=== PATIENT | female | born 1945 | race Caucasian/White ===

== ENCOUNTER → 2016-11-16 | Outpatient (CLI) | payer OTHER ==
[2016-11-16 12:39] LABS: ALT/SGPT 20 U/L (12-78); AST/SGOT 11 U/L (15-37); BLOOD UREA NITROGEN 22 mg/dl (7-18); BUN/CREATININE RATIO 22.3 (10-20); CALCIUM 8.5 mg/dl (8.5-10.1); CARBON DIOXIDE 28 mmol/L (21-32); CHLORIDE 106 mmol/L (98-107); GLUCOSE,FASTING 96 mg/dl (70-99); POTASSIUM 4.1 mmol/L (3.5-5.1); SODIUM 139 mmol/L (136-145)
[2016-11-16 12:42] LABS: ALB/GLOB RATIO 0.9 (0.9-2); ALKALINE PHOSPHATASE 59 U/L (45-117); CHOLESTEROL 161 mg/dl (0-200); CHOLESTEROL/HDL RATIO 2.5; HDL CHOLESTEROL 64 mg/dl; LDL CHOLESTEROL CALCULATED 70 mg/dl; TRIGLYCERIDES 134 mg/dl (0-150); VERY LOW DENSITY LIPOPROT CALC 27 mg/dl
== END | disposition home or self-care (01) ==
LOC: C.LABPBG 10:31
PROVIDERS: ATTEND Physician Assistant
DX: Z00.00 Encounter for general adult medical examination without abnormal findings (principal)

== ENCOUNTER → 2017-01-12 | Outpatient (CLI) | payer OTHER ==
[~2017-01-12] VITALS: Ht 177.8 cm; Wt 99.5 kg
[2017-01-12 12:55] VITALS: BP 135/88; PULSE 80; Ht 177.8 cm; Wt 99.5 kg
== END | disposition home or self-care (01) ==
LOC: C.NEUR 12:20
PROVIDERS: ATTEND Internal Medicine Pulmonary Disease
DX: F51.01 Primary insomnia (principal); G35 Multiple sclerosis; G47.9 Sleep disorder, unspecified

== ENCOUNTER → 2017-06-11 | Outpatient (CLI) | payer OTHER | END | disposition home or self-care (01) | LOC: C.LABSPEC 14:47 | PROVIDERS: ATTEND Family Medicine | DX: N31.9 Neuromuscular dysfunction of bladder, unspecified (principal) ==

== ENCOUNTER 2019-11-06 13:45 | Inpatient (IN) ==
[2019-11-06 15:50] LABS: Basophils # (auto) 0.01 K/uL (0-0.2); Basophils % (auto) 0.1 %; Eosinophils # (auto) 0.13 K/uL (0-0.5); Eosinophils % (auto) 1.3 %; Hematocrit (blood only) 40.7 % (42-52); Hemoglobin 13.7 g/dL (14.0-18.0); Immature Granulocytes # (auto) 0.02 K/uL (0.00-0.02); Immature Granulocytes % (auto) 0.2 %; Lymphocytes # (auto) 1.95 K/uL (1.2-3.4); Lymphocytes % (auto) 18.8 %; Mean Corpuscular Hemoglobin 32.5 pg (25-34); Mean Corpuscular Hgb Conc 33.7 g/dL (32-36); Mean Corpuscular Volume 96.4 fL (80-100); Monocytes # (auto) 0.92 K/uL (0.11-0.59); Monocytes % (auto) 8.9 %; Neutrophils # (auto) 7.33 K/uL (1.4-6.5); Neutrophils % (auto) 70.7 %; Platelet Count 277 K/uL (130-400); RDW Coefficient of Variation 12.9 % (11.5-14.5); RDW Standard Deviation 45.4 fL (36.4-46.3); Red Blood Count 4.22 M/uL (4.7-6.1); White Blood Count 10.36 K/uL (4.8-10.8)
--- NOTE | 2019-11-06 16:04 | CT Scan Report ---
CT OF THE HEAD WITHOUT CONTRAST CLINICAL HISTORY: Fall. Headache. COMPARISON STUDY: No previous studies for comparison. CT DOSE: 2483.74 mGy.cm TECHNIQUE: Helical axial images of the head were obtained without IV contrast. Automated exposure con trol was utilized for the study. A dose lowering technique was utilized adhering to the principles o f ALARA. FINDINGS: No acute intracranial hemorrhage, midline shift or mass effect is present. Mild atrophy is noted. White matter hypodensities suggest small vessel disease. The ventricular system is unremarkabl e. The basilar cisterns are patent. No extra-axial collections are present. There are no findings to suggest acute dural sinus thrombosis or acute territorial infarct. No significant calvarial abnormali ties are present. Visualized portions of the sinuses and mastoid air cells are clear. IMPRESSION: 1. No acute intracranial findings. 2. No calvarial fracture. ACT 112: Negative or not required by law. Electronically signed by: Benny Hawley M.D. 11/06/2019 4:02 PM
--- NOTE | 2019-11-06 16:06 | CT Scan Report ---
CT SCAN OF THE CERVICAL SPINE CLINICAL HISTORY: Falls. COMPARISON STUDY: No priors. TECHNIQUE: CT scan of the cervical spine is performed from the skull base to the upper thoracic spine . Images are reviewed in the axial, sagittal, and coronal planes. IV contrast was not administered fo r this examination. A dose lowering technique was utilized adhering to the principles of ALARA. FINDINGS: Skeletal structures: The skeletal structures are osteopenic. There is no evidence of fracture or subl uxation involving the cervical spine. Vertebral body height there is maintained. There is minimal ant erolisthesis at C4-C5. Alignment is otherwise preserved. Anterior osteophytes are seen throughout. Th e odontoid process and lateral masses are intact. The atlantoaxial articulation is preserved noting p roductive degenerative change. The spinous processes appear intact. There is moderate multilevel cerv ical spondylosis. Uncovertebral and facet arthropathy contribute to foraminal stenosis at several lev els. Intervertebral discs: Advanced disc space narrowing is seen at C6-C7. Mild to moderate disc space viri rowing is seen at the remaining cervical levels. Central canal: Posterior disc osteophyte complexes are seen at all cervical levels. This likely contr ibutes to multilevel acquired compromise of the central canal. Soft tissues: The prevertebral and paraspinous soft tissues are within normal limits. Calvarium: The visualized calvarium at the skull base appears intact. Brain parenchyma: Partially visualized brain parenchyma the skull base is within normal limits. Sinuses and mastoids: Trace mucosal thickening is noted in the right maxillary antrum. The mastoid ai r cells are well pneumatized. Lung apices: Clear as visualized. IMPRESSION: 1. There is no evidence of fracture or subluxation involving the cervical spine. 2. Osteopenia and spondylotic change as above. ACT 112: Negative or not required by law. Electronically signed by: Ortiz Whyte M.D. 11/06/2019 4:05 PM
[2019-11-06 16:10] LABS: Partial Thromboplastin Ratio 0.8; Partial Thromboplastin Time 23.3 Seconds (21.0-31.0); Prothrombin Time 10.2 Seconds (9.0-12.0)
--- NOTE | 2019-11-06 16:15 | CT Scan Report ---
ABDOMEN AND PELVIS CT WITHOUT CONTRAST CT DOSE: HISTORY: Right flank pain. fall TECHNIQUE: Multiaxial CT images of the abdomen and pelvis were performed without contrast. A dose lo wering technique was utilized adhering to the principles of ALARA. COMPARISON STUDY: Abdomen and pelvis CT 11/18/2018. FINDINGS: Stable 2 mm nodule within the right lower lobe on image 14. A few bibasilar linear densitie s and groundglass densities at the lung bases favor dependent change/atelectasis. No pneumoperitoneum . No pneumatosis. L4-5 posterior decompression and fusion with pedicle screws and rods. No acute frac tures within the visualized osseous structures. Multiple old, healed bilateral rib fractures. There i s a large hiatus hernia containing the majority of the stomach. This remains unchanged. Small fat-con taining umbilical hernia. There is also a small fat-containing right inguinal hernia. Mild bilateral perinephric edema. This has slightly progressed. No renal or ureteral stones. Mild left hydroureteron ephrosis. Prostate gland is mildly enlarged. The bladder is markedly distended and demonstrates a mil dly thickened wall for the degree of distention. Moderate to large amount well-formed stool seen with in the colon and rectum. This includes a 6.7 cm rectal stool ball. Suboptimal evaluation for bowel pa thology due to the lack of intravenous and oral contrast. However, there is no definite bowel wall th ickening or obstruction. The unenhanced liver, spleen, pancreas, and right adrenal gland are unremark able. Stable 2.7 cm low density left adrenal gland nodule. No retroperitoneal lymphadenopathy or kathy joaquin. Normal caliber abdominal aorta. IMPRESSION: 1. No acute traumatic process within the abdomen or pelvis. 2. Large hiatus hernia, unchanged. 3. The bladder is markedly distended and demonstrates a mildly thickened wall for the degree of diste ntion. This raises the possibility of a cystitis. Recommend correlation with urinalysis. 4. Mild bilateral perinephric edema has slightly progressed. This could be chronic or represent a ping lonephritis. 5. Mild left hydroureteronephrosis which is likely secondary to the distended bladder. 6. Additional findings as described above. ACT 112: Negative or not required by law. Electronically signed by: Chilo Comer M.D. 11/06/2019 4:13 PM
[2019-11-06 16:18] LABS: Alanine Aminotransferase 48 U/L (12-78); Albumin Level 3.9 gm/dl (3.4-5.0); Alkaline Phosphatase 74 U/L (45-117); Aspartate Aminotransferase 31 U/L (15-37); BUN Creatinine Ratio 15.9 (10-20); Bilirubin,Total 1.3 mg/dl (0.2-1); Blood Urea Nitrogen 49 mg/dl (7-18); Carbon Dioxide 31 mmol/L (21-32); Chloride 101 mmol/L (98-107); Est GFR (African American) 22.3; Est GFR (Non-African American) 19.2; Glucose 111 mg/dl (70-99); Magnesium 2.9 mg/dl (1.8-2.4); Potassium 3.2 mmol/L (3.5-5.1); Sodium 139 mmol/L (136-145); Total Protein 7.9 gm/dl (6.4-8.2); Troponin I < 0.015 ng/ml (0-0.045)
[2019-11-06 16:20] LABS: Calcium 12.9 mg/dl (8.5-10.1)
[2019-11-06] MEDS ORDERED: cefTRIAXone SODIUM 1,000 MG/50 ML BAG IV STA (16:34)
[2019-11-06 16:45] LABS: Appearance Urine Turbid (Clear); Bacteria Urine Automated 1+ (Negative); Bilirubin Urine Negative (Negative); Blood Urine 1+ (Negative); Color Urine Yellow; Epithelial Cell Urine Auto 20-30 /lpf (0-5); Glucose Urine UA Negative (Negative); Ketones Urine Negative (Negative); Leukocyte Esterase Urine 3+ (Negative); Nitrite Urine Negative (Negative); Protein Urine 1+ (Negative); RBC Urine Automated 0-4 /hpf (0-4); Specific Gravity Urine 1.012 (1.000-1.030); Urobilinogen Urine Negative (Negative); WBC Urine Automated >30 /hpf (0-5)
[2019-11-06] MEDS ORDERED: SODIUM CHLORIDE 0.9% 1000ML 1,000 ML IV SCH (16:45)
--- NOTE | 2019-11-06 17:18 | XRay Report ---
XR chest 1V portable CLINICAL HISTORY: SEPSIS COMPARISON STUDY: No previous studies for comparison. FINDINGS: A large hiatal hernia is noted. There is no pneumothorax or pleural effusion. There is no c onsolidation to suggest pneumonia. Mild cardiomegaly is noted. No evidence for pulmonary edema. IMPRESSION: 1. No acute cardiopulmonary findings. 2. Large hiatal hernia. ACT 112: Negative or not required by law. Electronically signed by: Benny Hawley M.D. 11/06/2019 5:17 PM
--- NOTE | 2019-11-06 17:19 | XRay Report ---
XR humerus LT 2V CLINICAL HISTORY: fall COMPARISON: None FINDINGS: No acute fracture of the left humerus is noted. Alignment of the left elbow and left shoul sandra is anatomic. IMPRESSION: No acute fracture of the left humerus. ACT 112: Negative or not required by law. Electronically signed by: Benny Hawley M.D. 11/06/2019 5:18 PM
--- NOTE | 2019-11-06 17:19 | XRay Report ---
XR shoulder LT min 2V routine CLINICAL HISTORY: fall COMPARISON: None FINDINGS: Alignment of the left shoulder is anatomic. There is no acute fracture. There is moderate osteoarthritis of the left acromioclavicular and glenohumeral joints. IMPRESSION: 1. No acute fracture or dislocation within the left shoulder. 2. Moderate osteoarthritis of the left acromioclavicular and glenohumeral joints. ACT 112: Negative or not required by law. Electronically signed by: Benny Hawley M.D. 11/06/2019 5:17 PM
--- NOTE | 2019-11-06 17:21 | XRay Report ---
XR pelvis 1-2V routine CLINICAL HISTORY: fall COMPARISON: CT of the abdomen and pelvis November 18, 2018. FINDINGS: Postoperative findings within the lower lumbar spine are incidentally noted. The sacroilia c joints and symphysis pubis are intact. No acute fracture within the pelvis or hips is identified. T here is moderate osteoarthritis of the bilateral hips. IMPRESSION: No acute fracture within the pelvis or hips. ACT 112: Negative or not required by law. Electronically signed by: Benny Hawley M.D. 11/06/2019 5:20 PM
--- NOTE | 2019-11-06 18:30 | History & Physical Report ---
Date of Service November 06, 2019 Assessment & Plan (1) Pyelonephritis: Patient is a 73-year-old male with PMH of MS, neurogenic bladder, HTN, glaucoma, depression who was sent to the ED by his PCP due to falls since Sunday. Has had several episodes of confusion for the past 3-4 days that have resolved quickly each time. Pt has neurogenic bladder and urinary retention--self-catheterizes at home. In the ED, UA was positive, labs showed elevated creatinine. Pyelonephritis: - Patient self-caths at home--at-risk for UTIs, no prior history of these - Confusion episodes likely related to infection - Afebrile, no leukocytosis--follow AM CBC - Positive UA -ABD/Pelvic CT: - The bladder is markedly distended and demonstrates a mildly thickened wall for the degree of distention. This raises the possibility of a cystitis. Recommend correlation with urinalysis. - Mild bilateral perinephric edema has slightly progressed. This could be chronic or represent a pyelonephritis. - Mild left hydroureteronephrosis which is likely secondary to the distended bladder. - Ceftriaxone 2g IV daily--adjusted by weight per discussion with pharmacy - Monitor clinically ANGIE - Likely post renal due to urinary retention - Patient catheterized - Patient's creatinine at 3.08 in ED - Strict I/Os - Trend BMP in AM Falls - Seem to be mechanical in nature, likely related to BLE weakness related to his MS - expressed concern about her ability to properly care for him at home should he fall again - Case management consulted - PT/OT consulted - Follow CM, PT/OT recs Neurogenic bladder - Continue home oxybutinin 5mg PO BID Muscle stiffness - Continue home cyclobenzaprine 10mg PO BID Glaucoma - Continue home latanoprost 1 drop in each eye HS Depression - Continue home citalopram 40mg PO daily Insomnia - Continue home zolpidem 10mg PO qPM FENGI: Heart healthy, LR @ 125ml/hr DVT prophylaxis: Heparin 5000 units SQ q8H Dispo: Med tele Code: Full Code (2) ANGIE (acute kidney injury): (3) Glaucoma: (4) Multiple sclerosis: (5) Depression: (6) Neurogenic bladder: (7) Muscle stiffness: (8) Fall: (9) Insomnia: History of Present Illness Primary Care Provider: Nguyen M. Ricotta, DO Patient is a 73-year-old male with PMH of MS, neurogenic bladder, HTN, glaucoma, depression who was sent to the ED by his PCP due to falls since Sunday. His is in the room with him and reports that he has fallen twice--the first while seated on the toilet and he slipped off. The second fall occurred yesterday-- was not present but patient says he had fallen off his wheelchair when doing his usual self-catheterization for his urinary retention. He denies having lost consciousness or feeling dizzy before the fall. He was unable to get back up due to a preexisting tear in his biceps that was noted by his PCP back in June 2019. Patient's also reports that he has had several episodes of confusion for the past 3-4 days that have resolved quickly each time. The patient denies any associated focal deficits apart from baseline changes or vision changes. In the ED, patient's UA was psoitive for LE, bacteria, WBC, and 1+ blood. Labs showed elevated creatinine, mild hypokalemia, moderate hypercalcemia, mild hypermagnesemia. No leukocytosis. ABD/pelvic CT noted marked bladder distention and demonstrates a mildly thickened wall for the degree of distention, raising the possibility of cystitis. Mild bilateral perinephric edema has slightly progressed. This could be chronic or represent a pyelonephritis. Head CT, cervical spine CT, CXR, Lt shoulder XR, Lt humerus XR, pelvis XR all noncontributory, except for mention fo large hiatal hernia. Patient denies fever, chills, CP, palpitations, SOB, cough, nausea, vomiting, diarrhea. Allergies Allergy/AdvReac Type Severity Reaction Status Date / Time No Known Allergies Allergy Verified 11/06/19 18:55 Home Medications Home Medications Medication Instructions Recorded Confirmed Type cholecalciferol (vitamin D3) 125 5,000 units PO DAILY tab 09/18/18 11/06/19 History mcg (5,000 unit) tablet ascorbic acid (vitamin C) 500 mg 1,000 mg PO DAILY tab 11/21/18 11/06/19 History tablet coenzyme Q10 100 mg capsule 100 mg PO DAILY cap 11/21/18 11/06/19 History magnesium oxide 400 mg (241.3 mg 400 mg PO BID tab 11/21/18 11/06/19 History magnesium) tablet omega-3 acid ethyl esters 1 gram 4 cap PO DAILY cap 11/21/18 11/06/19 History capsule oxybutynin chloride 5 mg tablet 5 mg PO BID #180 tab 12/06/18 11/06/19 Rx citalopram 40 mg tablet 40 mg PO DAILY #90 tab 02/11/19 11/06/19 Rx polyethylene glycol 3350 17 17 g PO DAILY PRN gm 03/10/19 11/06/19 History gram/dose oral powder cyclobenzaprine 10 mg tablet 10 mg PO BID 30 Days #60 tab 10/30/19 11/06/19 Rx latanoprost 1 drp OPB HS 11/06/19 11/06/19 History multivitamin with iron-mineral 1 tab PO DAILY 11/06/19 11/06/19 History zolpidem 10 mg PO QPM 11/06/19 11/06/19 History Past Med/Surg History Medical History Adrenal adenoma Aneurysm of vertebral artery Bilateral swelling of feet Depression Glaucoma Hearing difficulty History of urinary self-catheterization Hypertension Idiopathic insomnia Impotence, organic Lyme disease Multiple sclerosis (~1991) Neurogenic bladder Neuropathic pain bilateral feet Peripheral neuropathy Vision problem Surgical History History of back surgery History of repair of rotator cuff Status post insertion of intrathecal baclofen pump 2008 and removal 2009 was about a year later. pump was making him too weak. then had csf leaking and that had to be repaired Family History Mother Myocardial infarction Cardiac disorder Sister Multiple sclerosis COPD (chronic obstructive pulmonary disease) Father Leukemia Denies family history of Ovarian cancer Prostate cancer Breast cancer Colorectal cancer Social History Smoking Status: Former smoker Tobacco Type: Cigarettes Hx Alcohol Use: Yes Alcohol type: hard liquor Hx Substance Use: No Preferred Language: German Communication Ability: Effective Visual Impairment: Limited Hearing Ability: Normal Beliefs That Will Affect Care: None marital status: Current Living Situation: Spouse current occupational status: retired Other Information That Helps Us Care for You: No Feels Safe at Home: Yes Safety Concerns: Feels Safe At This Time Childhood Exposure to Second-Hand Smoke: No caffeine: Yes (Coffee x 1 cup per day.) during the past year weight has: remained stable Dental Care, Regularly: Yes Physical Activity Frequency: Does not Exercise Seatbelt Use: always Sunscreen Use: No Assistive Devices: Glasses, Hearing Aid - Left, Hearing Aid - Right and Wheelchair Review of Systems Review of Systems: All systems reviewed & are unremarkable except as noted in HPI & below Musculoskeletal: + joint pain (left shoulder and arm pain) Neurologic: + localized weakness (weakness of both legs, at baseline due to MS) and + headache(s) (reports that usually gets these with glaucoma drops, has discussed with prescribing provider) Physical Exam Constitutional: WD/WN, vitals as above no acute distress Eyes: PERRL, conjunctivae normal, anicteric sclerae EOM intact bilaterally ENMT: external ear and nose normal, oropharynx normal Ears: + hearing impairment (hearing aids in, hearing normal with them) Neck: trachea midline, no thyromegaly Respiratory: normal respiratory effort, lungs clear to auscultation Auscultation: no crackles, no rales, no rhonchi and no wheezes Cardiovascular: RRR, no murmur, no edema Heart Sounds: normal S1 and normal S2; no gallop, no murmur and no cardiac rub Chest (Breasts): Chest: normal inspection of chest Gastrointestinal (Abdomen): normal bowel sounds, soft, nontender, no hepatosplenomegaly Musculoskeletal: Head/Neck/Chest: normocephalic; full ROM of neck Extremities: extremities normal to inspection and + abnormal strength (see neuro exam); no cyanosis and no clubbing Skin: no rashes, warm and dry Neurologic: CN II, III, IV, and VII normal. CN VIII: hearing normal with hearing aids. Flexion of UE 3/5, extension 5/5. [employer] Sports [employer] strength 5/5 B/L. Lower extremities: very limited movement, able to wiggle toes. Psychiatric: A+Ox3, euthymic affect Speech: normal rate/rhythm/volume of speech Lymphatic: no cervical or axillary lymphadenopathy Results & Data Results & Data ([facility]) Vital Signs (Past 12 Hours) Vital Signs Temp Pulse Pulse Resp BP BP Pulse Ox 11/06/19 17:58 90 18 179/119 H 96 11/06/19 17:09 91 H 18 190/114 H 95 10/01/20 14:08 36.9 C 84 20 182/112 H 97 Supervising Physician Co-Signing Physician Notes I personally saw and examined the patient. I verified all jalloh points and agree with resident physician Dr Quick with the following exceptions and/or additions: 73-year-old male with neurogenic bladder due to multiple sclerosis sent by PCP due to multiple falls. Finding it more difficult to perform intermittent catheterization and slipping off toilet when trying to perform this. No suprapubic tenderness or CVA tenderness. No known history of Pseudomonas UTI. O/E very dry mucous membranes, no CVA tenderness, alert, nonseptic appearing, abdomen soft nontender. Chest CTAB anteriorly. A/P Suspect all the symptoms are secondary to pyelonephritis/cystitis in setting of urinary retention. ANGIE secondary to obstructive uropathy and prerenal from dehydration. Hypercalcemia suspect secondary to dehydration in addition and should improve with rehydration. LR bolus now, then switch lactated Ringer's for D5 half normal saline + KCl @ 200 ml/hr. Urine output measure every 2 hourly to need for additional IV fluids. Aim +ve 2L in the next 24 hours. Resident Activity Tracking Resident Involvement: Resident Care Provided Care Provided: Adult Hospital Medicine
[2019-11-06] MEDS ORDERED: POLYETHYLENE (MIRALAX) 17 GM PACK PO PRN (20:52)
[2019-11-06] MEDS ORDERED: cefTRIAXone SODIUM 1,000 MG in DEXTROSE 5% 50 ML IV SCH (20:52)
[2019-11-06] MEDS ORDERED: LACTATED RINGER'S 1,000 ML IV SCH (20:52)
[2019-11-06] MEDS ORDERED: ONDANSETRON INJ 2 MG/ML 2 ML VIAL IV PRN (20:52)
[2019-11-06] MEDS ORDERED: ACETAMINOPHEN 325 MG TAB PO PRN (20:52)
--- NOTE | 2019-11-06 21:49 | Emergency Department Note ---
History of Present Illness General Chief complaint: Fall Stated complaint: 3 FALL'S, CONFUSED, LEFT SHOULDER PAIN Time Seen by Provider: 11/06/19 15:02 Source: family () Mode of arrival: wheelchair History of Present Illness Provider complaint: Recurrent falls lethargy Onset (ago): day(s) 8 Location: upper extremity and left Radiation: non-radiation Severity: mild Maximum Pain Intensity: 8 73-year-old male who is wheelchair-bound with history of MS presents emergency department with his . brought the patient in because he has had recurrent falls over the last 3 days. She reports that 8 days ago he received Botox injections for muscle spasms due to his MS in his bilateral lower extremities. She said states since then he has been increasingly weak and has fallen 3 times over the last 3 days. reports that the patient has been complaining of left arm pain. She also reports that the patient has had no fevers. She reports that the patient does self cath and has had a cloudy appearance to his urine. Home Medications Home Medications Medication Instructions Recorded Confirmed Type cholecalciferol (vitamin D3) 125 5,000 units PO DAILY tab 09/18/18 11/06/19 History mcg (5,000 unit) tablet ascorbic acid (vitamin C) 500 mg 1,000 mg PO DAILY tab 11/21/18 11/06/19 History tablet coenzyme Q10 100 mg capsule 100 mg PO DAILY cap 11/21/18 11/06/19 History magnesium oxide 400 mg (241.3 mg 400 mg PO BID tab 11/21/18 11/06/19 History magnesium) tablet omega-3 acid ethyl esters 1 gram 4 cap PO DAILY cap 11/21/18 11/06/19 History capsule oxybutynin chloride 5 mg tablet 5 mg PO BID #180 tab 12/06/18 11/06/19 Rx citalopram 40 mg tablet 40 mg PO DAILY #90 tab 02/11/19 11/06/19 Rx polyethylene glycol 3350 17 17 g PO DAILY PRN gm 03/10/19 11/06/19 History gram/dose oral powder cyclobenzaprine 10 mg tablet 10 mg PO BID 30 Days #60 tab 10/30/19 11/06/19 Rx latanoprost 1 drp OPB HS 11/06/19 11/06/19 History multivitamin with iron-mineral 1 tab PO DAILY 11/06/19 11/06/19 History zolpidem 10 mg PO QPM 11/06/19 11/06/19 History Allergies Allergy/AdvReac Type Severity Reaction Status Date / Time No Known Allergies Allergy Verified 11/06/19 18:55 Past Med/Surg History Medical History Adrenal adenoma Aneurysm of vertebral artery Bilateral swelling of feet Depression Glaucoma Hearing difficulty History of urinary self-catheterization Hypertension Idiopathic insomnia Impotence, organic Lyme disease Multiple sclerosis (~1991) Neurogenic bladder Neuropathic pain bilateral feet Peripheral neuropathy Vision problem Surgical History History of back surgery History of repair of rotator cuff Status post insertion of intrathecal baclofen pump 2008 and removal 2009 was about a year later. pump was making him too weak. then had csf leaking and that had to be repaired Family History Mother Myocardial infarction Cardiac disorder Sister Multiple sclerosis COPD (chronic obstructive pulmonary disease) Father Leukemia Denies family history of Ovarian cancer Prostate cancer Breast cancer Colorectal cancer Social History Smoking Status: Former smoker Tobacco Type: Cigarettes Hx Alcohol Use: Yes Alcohol type: hard liquor Hx Substance Use: No Preferred Language: Spanish Communication Ability: Effective Visual Impairment: Limited Hearing Ability: Normal Beliefs That Will Affect Care: None marital status: Current Living Situation: Spouse current occupational status: retired Other Information That Helps Us Care for You: No Feels Safe at Home: Yes Safety Concerns: Feels Safe At This Time Childhood Exposure to Second-Hand Smoke: No caffeine: Yes (Coffee x 1 cup per day.) during the past year weight has: remained stable Dental Care, Regularly: Yes Physical Activity Frequency: Does not Exercise Seatbelt Use: always Sunscreen Use: No Assistive Devices: Glasses, Hearing Aid - Bilateral and Wheelchair Review of Systems A total of 10 systems reviewed and were otherwise negative Physical Exam Vital Signs Vital Signs - 24 hr 11/06/19 14:08 11/06/19 16:00 11/06/19 17:09 Temperature 36.9 C Temperature Source Oral Pulse Rate 84 Pulse Rate [Apical] 91 H Pulse Rhythm Regular Pulse Strength Normal Respiratory Rate 20 18 Respiratory Effort / Characteristics Non-Labored Spontaneous Non-Labored Respiratory Depth Normal Respiratory Pattern Regular Blood Pressure 182/112 H Blood Pressure [Left Arm] 190/114 H Blood Pressure Mean 135 Blood Pressure Mean [Left Arm] 139 Blood Pressure Position Sitting Pulse Oximetry 97 95 Oxygen Delivery Method Room Air Room Air Room Air Sepsis Recent Fever Within 48 Hours No Sepsis New/Unexplained Change in Mental Status N/A Sepsis Action Taken by Nursing No Action Required 11/06/19 17:58 11/06/19 18:41 Temperature Temperature Source Pulse Rate Pulse Rate [Apical] 90 93 H Pulse Rhythm Pulse Strength Respiratory Rate 18 18 Respiratory Effort / Characteristics Non-Labored Non-Labored Respiratory Depth Normal Normal Respiratory Pattern Blood Pressure Blood Pressure [Left Arm] 179/119 H 177/108 H Blood Pressure Mean Blood Pressure Mean [Left Arm] 139 131 Blood Pressure Position Pulse Oximetry 96 95 Oxygen Delivery Method Room Air Room Air Sepsis Recent Fever Within 48 Hours Sepsis New/Unexplained Change in Mental Status Sepsis Action Taken by Nursing Physical Exam GENERAL: He is oriented to person, place, and time. He appears well-developed and well-nourished. He does not appear distressed. HENT: Exam performed. - Head: Normocephalic and atraumatic. - Mouth/Throat: The oropharynx is clear and moist. No trismus in the jaw. No dental abscesses or uvula swelling. No oropharyngeal exudate or tonsillar abscesses. EYES: Conjunctivae and EOM are normal. Pupils are equal, round, and reactive to light. Right eye exhibits no discharge. Left eye exhibits no discharge. No scleral icterus. NECK: Normal range of motion. Neck supple. No JVD present. No spinous process tenderness present. No carotid bruit present. No rigidity. No tracheal deviation and normal range of motion present. No Brudzinski's sign and no Kernig's sign noted. CV: Normal rate, regular rhythm, normal heart sounds and intact distal pulses. There is no peripheral edema. Palpable radial pulses bue. PULM/CHEST: Rhonchi bilaterally - Chest Wall: He exhibits no tenderness. ABD: The abdomen is soft. MUSCULOSKELETAL: Pain on palpation of the left upper extremity. NEURO: He is alert and oriented to person, place, and time. Decrease strength in the bilateral lower extremities baseline per . Course Course 1502: The patient was evaluated in room D4. A complete history and physical exam was performed. Cardiac monitoring: An order was placed for continuous cardiac monitoring. The monitor shows a rate of 90 with sinus rhythm 1630: Vital signs stable. Labs show an increased creatinine of 3.08 up from the patient's baseline of 1.3. Urinalysis does appear infected. CT shows possible pyelonephritis. No other traumatic injuries on imaging. Calcium was 12.9. Patient was started on IV hydration and given Rocephin 1 g IV piggyback for pyelonephritis. Posey catheter will be placed. Patient will be admitted to the [facility] team. Dr. Pike notified. Administered Medications Discontinued Medications Sodium Chloride (Nss 1000ml) 1,000 mls @ 125 mls/hr IV .Q8H SHALINI Stop: 12/06/19 16:44 Last Admin: 11/06/19 17:13 Dose: 125 mls/hr Documented by: [id number] Ceftriaxone Sodium (Rocephin) 1,000 mg in 50 mls @ 100 mls/hr IV NOW STA Stop: 11/06/19 17:03 Last Infusion: 11/06/19 17:40 Dose: 0 mls/hr Documented by: [id number] Admin: 11/06/19 17:10 Dose: 100 mls/hr Documented by: [id number] Medical Decision Making Laboratory Data Result diagrams: 11/06/19 15:25 11/06/19 15:25 Lab Results 11/06/19 11/06/19 11/06/19 Range/Units 15:07 15:25 15:25 WBC 10.36 (4.8-10.8) K/uL RBC 4.22 L (4.7-6.1) M/uL Hgb 13.7 L (14.0-18.0) g/dL Hct 40.7 L (42-52) % MCV 96.4 (80-100) fL MCH 32.5 (25-34) pg MCHC 33.7 (32-36) g/dL RDW Std Deviation 45.4 (36.4-46.3) fL RDW Coeff of Gracy 12.9 (11.5-14.5) % Plt Count 277 (130-400) K/uL MPV 10.0 (7.4-10.4) fL Immature Gran % (Auto) 0.2 % Neut % (Auto) 70.7 % Lymph % (Auto) 18.8 % [place] % (Auto) 8.9 % Eos % (Auto) 1.3 % Baso % (Auto) 0.1 % Neut # (Auto) 7.33 H (1.4-6.5) K/uL Lymph # (Auto) 1.95 (1.2-3.4) K/uL [place] # (Auto) 0.92 H (0.11-0.59) K/uL Eos # (Auto) 0.13 (0-0.5) K/uL Baso # (Auto) 0.01 (0-0.2) K/uL Immature Gran # (Auto) 0.02 (0.00-0.02) K/uL PT (9.0-12.0) Seconds INR (0.9-1.1) APTT (21.0-31.0) Seconds PTT Ratio Sodium (136-145) mmol/L Potassium (3.5-5.1) mmol/L Chloride (98-107) mmol/L Carbon Dioxide (21-32) mmol/L Anion Gap (3-11) BUN (7-18) mg/dl Creatinine (0.6-1.4) mg/dl Est Cr Clr Drug Dosing Est GFR ( Amer) Est GFR (Non-Af Amer) BUN/Creatinine Ratio (10-20) Glucose (70-99) mg/dl POC Glucose 110 H (70-99) mg/dl Lactate (0.4-2.0) mmol/L Calcium (8.5-10.1) mg/dl Magnesium (1.8-2.4) mg/dl Total Bilirubin (0.2-1) mg/dl AST (15-37) U/L ALT (12-78) U/L Alkaline Phosphatase (45-117) U/L Ammonia (11-32) umol/L Troponin I (0-0.045) ng/ml Total Protein (6.4-8.2) gm/dl Albumin (3.4-5.0) gm/dl Globulin (2.5-4.0) gm/dl Albumin/Globulin Ratio (0.9-2) Procalcitonin 0.12 (0-0.5) ng/ml Urine Color Urine Appearance (Clear) Urine pH (4.5-7.5) Ur Specific [place] (1.000-1.030) Urine Protein (Negative) Urine Glucose (UA) (Negative) Urine Ketones (Negative) Urine Blood (Negative) Urine Nitrite (Negative) Urine Bilirubin (Negative) Urine Urobilinogen (Negative) Ur Leukocyte Esterase (Negative) Urine WBC (Auto) (0-5) /hpf Urine RBC (Auto) (0-4) /hpf U Hyaline Cast (Auto) (0-5) /lpf U Epithel Cells (Auto) (0-5) /lpf Urine Bacteria (Auto) (Negative) 11/06/19 11/06/19 11/06/19 Range/Units 15:25 15:25 15:25 WBC (4.8-10.8) K/uL RBC (4.7-6.1) M/uL Hgb (14.0-18.0) g/dL Hct (42-52) % MCV (80-100) fL MCH (25-34) pg MCHC (32-36) g/dL RDW Std Deviation (36.4-46.3) fL RDW Coeff of Gracy (11.5-14.5) % Plt Count (130-400) K/uL MPV (7.4-10.4) fL Immature Gran % (Auto) % Neut % (Auto) % Lymph % (Auto) % [place] % (Auto) % Eos % (Auto) % Baso % (Auto) % Neut # (Auto) (1.4-6.5) K/uL Lymph # (Auto) (1.2-3.4) K/uL [place] # (Auto) (0.11-0.59) K/uL Eos # (Auto) (0-0.5) K/uL Baso # (Auto) (0-0.2) K/uL Immature Gran # (Auto) (0.00-0.02) K/uL PT 10.2 (9.0-12.0) Seconds INR 1.0 (0.9-1.1) APTT 23.3 (21.0-31.0) Seconds PTT Ratio 0.8 Sodium 139 (136-145) mmol/L Potassium 3.2 L (3.5-5.1) mmol/L Chloride 101 (98-107) mmol/L Carbon Dioxide 31 (21-32) mmol/L Anion Gap 7.0 (3-11) BUN 49 H (7-18) mg/dl Creatinine 3.08 H (0.6-1.4) mg/dl Est Cr Clr Drug Dosing Not Reportable Est GFR ( Amer) 22.3 Est GFR (Non-Af Amer) 19.2 BUN/Creatinine Ratio 15.9 (10-20) Glucose 111 H (70-99) mg/dl POC Glucose (70-99) mg/dl Lactate 1.6 (0.4-2.0) mmol/L Calcium 12.9 H* (8.5-10.1) mg/dl Magnesium 2.9 H (1.8-2.4) mg/dl Total Bilirubin 1.3 H (0.2-1) mg/dl AST 31 (15-37) U/L ALT 48 (12-78) U/L Alkaline Phosphatase 74 (45-117) U/L Ammonia (11-32) umol/L Troponin I < 0.015 (0-0.045) ng/ml Total Protein 7.9 (6.4-8.2) gm/dl Albumin 3.9 (3.4-5.0) gm/dl Globulin 4.0 (2.5-4.0) gm/dl Albumin/Globulin Ratio 1.0 (0.9-2) Procalcitonin (0-0.5) ng/ml Urine Color Urine Appearance (Clear) Urine pH (4.5-7.5) Ur Specific [place] (1.000-1.030) Urine Protein (Negative) Urine Glucose (UA) (Negative) Urine Ketones (Negative) Urine Blood (Negative) Urine Nitrite (Negative) Urine Bilirubin (Negative) Urine Urobilinogen (Negative) Ur Leukocyte Esterase (Negative) Urine WBC (Auto) (0-5) /hpf Urine RBC (Auto) (0-4) /hpf U Hyaline Cast (Auto) (0-5) /lpf U Epithel Cells (Auto) (0-5) /lpf Urine Bacteria (Auto) (Negative) 11/06/19 11/06/19 Range/Units 16:16 16:25 WBC (4.8-10.8) K/uL RBC (4.7-6.1) M/uL Hgb (14.0-18.0) g/dL Hct (42-52) % MCV (80-100) fL MCH (25-34) pg MCHC (32-36) g/dL RDW Std Deviation (36.4-46.3) fL RDW Coeff of Gracy (11.5-14.5) % Plt Count (130-400) K/uL MPV (7.4-10.4) fL Immature Gran % (Auto) % Neut % (Auto) % Lymph % (Auto) % [place] % (Auto) % Eos % (Auto) % Baso % (Auto) % Neut # (Auto) (1.4-6.5) K/uL Lymph # (Auto) (1.2-3.4) K/uL [place] # (Auto) (0.11-0.59) K/uL Eos # (Auto) (0-0.5) K/uL Baso # (Auto) (0-0.2) K/uL Immature Gran # (Auto) (0.00-0.02) K/uL PT (9.0-12.0) Seconds INR (0.9-1.1) APTT (21.0-31.0) Seconds PTT Ratio Sodium (136-145) mmol/L Potassium (3.5-5.1) mmol/L Chloride (98-107) mmol/L Carbon Dioxide (21-32) mmol/L Anion Gap (3-11) BUN (7-18) mg/dl Creatinine (0.6-1.4) mg/dl Est Cr Clr Drug Dosing Est GFR ( Amer) Est GFR (Non-Af Amer) BUN/Creatinine Ratio (10-20) Glucose (70-99) mg/dl POC Glucose (70-99) mg/dl Lactate (0.4-2.0) mmol/L Calcium (8.5-10.1) mg/dl Magnesium (1.8-2.4) mg/dl Total Bilirubin (0.2-1) mg/dl AST (15-37) U/L ALT (12-78) U/L Alkaline Phosphatase (45-117) U/L Ammonia 12.8 (11-32) umol/L Troponin I (0-0.045) ng/ml Total Protein (6.4-8.2) gm/dl Albumin (3.4-5.0) gm/dl Globulin (2.5-4.0) gm/dl Albumin/Globulin Ratio (0.9-2) Procalcitonin (0-0.5) ng/ml Urine Color Yellow Urine Appearance Turbid A (Clear) Urine pH 7.0 (4.5-7.5) Ur Specific [place] 1.012 (1.000-1.030) Urine Protein 1+ H (Negative) Urine Glucose (UA) Negative (Negative) Urine Ketones Negative (Negative) Urine Blood 1+ H (Negative) Urine Nitrite Negative (Negative) Urine Bilirubin Negative (Negative) Urine Urobilinogen Negative (Negative) Ur Leukocyte Esterase 3+ H (Negative) Urine WBC (Auto) >30 H (0-5) /hpf Urine RBC (Auto) 0-4 (0-4) /hpf U Hyaline Cast (Auto) 1-5 (0-5) /lpf U Epithel Cells (Auto) 20-30 H (0-5) /lpf Urine Bacteria (Auto) 1+ H (Negative) Imaging Data Radiologist's Impression: XR shoulder LT min 2V routine CLINICAL HISTORY: fall COMPARISON: None FINDINGS: Alignment of the left shoulder is anatomic. There is no acute fracture. There is moderate osteoarthritis of the left acromioclavicular and glenohumeral joints. IMPRESSION: 1. No acute fracture or dislocation within the left shoulder. 2. Moderate osteoarthritis of the left acromioclavicular and glenohumeral joints. ACT 112: Negative or not required by law. Electronically signed by: Benny Hawley M.D. 11/06/2019 5:17 PM Dictated: 11/06/191716 Transcribed: 11/06/191716 XR humerus LT 2V CLINICAL HISTORY: fall COMPARISON: None FINDINGS: No acute fracture of the left humerus is noted. Alignment of the left elbow and left shoulder is anatomic. IMPRESSION: No acute fracture of the left humerus. ACT 112: Negative or not required by law. Electronically signed by: Benny Hawley M.D. 11/06/2019 5:18 PM Dictated: 11/06/191717 Transcribed: 11/06/191717 XR chest 1V portable CLINICAL HISTORY: SEPSIS COMPARISON STUDY: No previous studies for comparison. FINDINGS: A large hiatal hernia is noted. There is no pneumothorax or pleural effusion. There is no consolidation to suggest pneumonia. Mild cardiomegaly is noted. No evidence for pulmonary edema. IMPRESSION: 1. No acute cardiopulmonary findings. 2. Large hiatal hernia. ACT 112: Negative or not required by law. Electronically signed by: Benny Hawley M.D. 11/06/2019 5:17 PM Dictated: 11/06/191714 Transcribed: 11/06/191714 XR pelvis 1-2V routine CLINICAL HISTORY: fall COMPARISON: CT of the abdomen and pelvis November 18, 2018. FINDINGS: Postoperative findings within the lower lumbar spine are incidentally noted. The sacroiliac joints and symphysis pubis are intact. No acute fracture w ithin the pelvis or hips is identified. There is moderate osteoarthritis of the bilateral hips. IMPRESSION: No acute fracture within the pelvis or hips. ACT 112: Negative or not required by law. Electronically signed by: Benny Hawley M.D. 11/06/2019 5:20 PM Dictated: 11/06/191717 Transcribed: 11/06/191717 CT OF THE HEAD WITHOUT CONTRAST CLINICAL HISTORY: Fall. Headache. COMPARISON STUDY: No previous studies for comparison. CT DOSE: 2483.74 mGy.cm TECHNIQUE: Helical axial images of the head were obtained without IV contrast. Automated exposure control was utilized for the study. A dose lowering technique was utilized adhering to the principles of ALARA. FINDINGS: No acute intracranial hemorrhage, midline shift or mass effect is present. Mild atrophy is noted. White matter hypodensities suggest small vessel disease. The ventricular system is unremarkable. The basilar cisterns are patent. No extra-axial collections are present. There are no findings to suggest acute dural sinus thrombosis or acute territorial infarct. No significant calvarial abnormalities are present. Visualized portions of the sinuses and mastoid air cells are clear. IMPRESSION: 1. No acute intracranial findings. 2. No calvarial fracture. ACT 112: Negative or not required by law. Electronically signed by: Benny Hawley M.D. 11/06/2019 4:02 PM Dictated: 11/06/19 1559 Transcribed: 11/06/[address] SCAN OF THE CERVICAL SPINE CLINICAL HISTORY: Falls. COMPARISON STUDY: No priors. TECHNIQUE: CT scan of the cervical spine is performed from the skull base to the upper thoracic spine. Images are reviewed in the axial, sagittal, and coronal planes. IV contrast was not administered for this examination. A dose lowering technique was utilized adhering to the principles of ALARA. FINDINGS: Skeletal structures: The skeletal structures are osteopenic. There is no evid ence of fracture or subluxation involving the cervical spine. Vertebral body height there is maintained. There is minimal anterolisthesis at C4-C5. Alignment is otherwise preserved. Anterior osteophytes are seen throughout. The odontoid process and lateral masses are intact. The atlantoaxial articulation is preserved noting productive degenerative change. The spinous processes appear intact. There is moderate multilevel cervical spondylosis. Uncovertebral and facet arthropathy contribute to foraminal stenosis at several levels. Intervertebral discs: Advanced disc space narrowing is seen at C6-C7. Mild to moderate disc space narrowing is seen at the remaining cervical levels. Central canal: Posterior disc osteophyte complexes are seen at all cervical levels. This likely contributes to multilevel acquired compromise of the central canal. Soft tissues: The prevertebral and paraspinous soft tissues are within normal limits. Calvarium: The visualized calvarium at the skull base appears intact. Brain parenchyma: Partially visualized brain parenchyma the skull base is within normal limits. Sinuses and mastoids: Trace mucosal thickening is noted in the right maxillary antrum. The mastoid air cells are well pneumatized. Lung apices: Clear as visualized. IMPRESSION: 1. There is no evidence of fracture or subluxation involving the cervical spine. 2. Osteopenia and spondylotic change as above. ACT 112: Negative or not required by law. Electronically signed by: Ortiz Whyte M.D. 11/06/2019 4:05 PM Dictated: 11/06/19 1602 Transcribed: 11/06/[address] WITHOUT CONTRAST CT DOSE: HISTORY: Right flank pain. fall TECHNIQUE: Multiaxial CT images of the abdomen and pelvis were performed without contrast. A dose lowering technique was utilized adhering to the principles of ALARA. COMPARISON STUDY: Abdomen and pelvis CT 11/18/2018. FINDINGS: Stable 2 mm nodule within the right lower lobe on image 14. A few bibasilar linear densities and groundglass densities at the lung bases favor dependent change/atelectasis. No pneumoperitoneum. No pneumatosis. L4-5 posterior decompression and fusion with pedicle screws and rods. No acute fractures within the visualized osseous structures. Multiple old, healed bilateral rib fractures. There is a large hiatus hernia containing the majority of the stomach. This remains unchanged. Small fat-containing umbilical hernia. There is also a small fat-containing right inguinal hernia. Mild bilateral perin ephric edema. This has slightly progressed. No renal or ureteral stones. Mild left hydroureteronephrosis. Prostate gland is mildly enlarged. The bladder is markedly distended and demonstrates a mildly thickened wall for the degree of distention. Moderate to large amount well-formed stool seen within the colon and rectum. This includes a 6.7 cm rectal stool ball. Suboptimal evaluation for bowel pathology due to the lack of intravenous and oral contrast. However, there is no definite bowel wall thickening or obstruction. The unenhanced liver, spleen, pancreas, and right adrenal gland are unremarkable. Stable 2.7 cm low density left adrenal gland nodule. No retroperitoneal lymphadenopathy or he matoma. Normal caliber abdominal aorta. IMPRESSION: 1. No acute traumatic process within the abdomen or pelvis. 2. Large hiatus hernia, unchanged. 3. The bladder is markedly distended and demonstrates a mildly thickened wall for the degree of distention. This raises the possibility of a cystitis. Recommend correlation with urinalysis. 4. Mild bilateral perinephric edema has slightly progressed. This could be chronic or represent a pyelonephritis. 5. Mild left hydroureteronephrosis which is likely secondary to the distended bladder. 6. Additional findings as described above. ACT 112: Negative or not required by law. Electronically signed by: Chilo Comer M.D. 11/06/2019 4:13 PM Dictated: 11/06/19 1603 Transcribed: 11/06/19 1603 ECG Data Rate (beats per minute): 89 Rhythm: + normal sinus ECG ST segments: + Normal ST segments Additional Comments: MT 224 QRS 152 QTc 496 MDM Narrative 1502: The patient was evaluated in room D4. A complete history and physical exam was performed. Cardiac monitoring: An order was placed for continuous cardiac monitoring. The monitor shows a rate of 90 with sinus rhythm 1630: Vital signs stable. Labs show an increased creatinine of 3.08 up from the patient's baseline of 1.3. Urinalysis does appear infected. CT shows possible pyelonephritis. No other traumatic injuries on imaging. Calcium was 12.9. Patient was started on IV hydration and given Rocephin 1 g IV piggyback for pyelonephritis. Poesy catheter will be placed. Patient will be admitted to the [facility] team. Dr. Piek notified. Impression & Plan ANGIE (acute kidney injury), Acute pyelonephritis, Hypercalcemia Discharge Plan Visit Data Chief Complaint: Fall Stated Complaint: 3 FALL'S, CONFUSED, LEFT SHOULDER PAIN ED Provider: Lionel Eduardo Discharge Problem: ANGIE (acute kidney injury), Acute pyelonephritis, Hypercalcemia Patient Disposition: Admitted As Inpatient Discharge Instructions Interventions: ED Discharge Assessment Last Done: 11/06/19 19:48
[2019-11-06] MEDS ORDERED: cefTRIAXone SODIUM 1,000 MG in DEXTROSE 5% 50 ML IV ONE (22:00)
[2019-11-06] MEDS: ZOLPIDEM TARTRATE 10 MG TAB PO SCH (22:04)
[2019-11-06] MEDS: OXYBUTYNIN CHLORIDE 5 MG TAB PO SCH (22:05)
[2019-11-06] MEDS: CYCLOBENZAPRINE HCL 10 MG TAB PO SCH (22:05)
[2019-11-06] MEDS: LATANOPROST 0.005% OP SOLN 2.5 ML BTL OPB SCH (22:06)
[2019-11-06] MEDS: HEPARIN SOD 5,000 UNIT/0.5 ML VIAL SQ SCH (22:06)
[2019-11-06] MEDS ORDERED: SODIUM CHLORIDE 0.9% 1000ML 1,000 ML IV ONE (22:47)
[2019-11-06] MEDS ORDERED: LACTATED RINGER'S 1,000 ML IV ONE (22:49)
[2019-11-06] MEDS ORDERED: POTASSIUM CHLORIDE 20 MEQ TABCR PO STA (22:51)
[2019-11-06] MEDS: HydrALAZINE HCL 20 MG/ML VIAL IV PRN (23:38)
[2019-11-06] MEDS: D5W AND 1/2NSS + 20MEQ KCL 20 MEQ/1,000 ML BAG IV SCH (23:49)
[2019-11-07] MEDS: HydrALAZINE HCL 20 MG/ML VIAL IV PRN (04:09)
[2019-11-07] MEDS: D5W AND 1/2NSS + 20MEQ KCL 20 MEQ/1,000 ML BAG IV SCH (04:49)
[2019-11-07] MEDS: HEPARIN SOD 5,000 UNIT/0.5 ML VIAL SQ SCH ×3 (06:01→20:20)
--- NOTE | 2019-11-07 06:14 | Electrocardiogram Report ---
Test Reason : Blood Pressure : / mmHG Vent. Rate : 089 BPM Atrial Rate : 089 BPM P-R Int : 224 ms QRS Dur : 152 ms QT Int : 408 ms P-R-T Axes : 023 088 -04 degrees QTc Int : 496 ms Sinus rhythm with 1st degree A-V block Right bundle branch block Cannot rule out Inferior infarct , age undetermined Abnormal ECG No previous ECGs available Confirmed by Chandan Rendon ([id number]) on 11/07/2019 6:13:41 AM Referred By: REFERRED SELF Confirmed By:Chandan Rendon
[2019-11-07 06:31] LABS: BUN Creatinine Ratio 14.5 (10-20); Calcium 11.3 mg/dl (8.5-10.1); Est GFR (African American) 23.7; Est GFR (Non-African American) 20.4; Potassium 3.3 mmol/L (3.5-5.1)
[2019-11-07 07:46] LABS: Basophils # (auto) 0.01 K/uL (0-0.2); Basophils % (auto) 0.1 %; Eosinophils # (auto) 0.28 K/uL (0-0.5); Eosinophils % (auto) 3.5 %; Hematocrit (blood only) 42.2 % (42-52); Hemoglobin 13.9 g/dL (14.0-18.0); Immature Granulocytes # (auto) 0.01 K/uL (0.00-0.02); Immature Granulocytes % (auto) 0.1 %; Lymphocytes # (auto) 1.35 K/uL (1.2-3.4); Lymphocytes % (auto) 16.7 %; Mean Platelet Volume 9.8 fL (7.4-10.4); Monocytes # (auto) 1.24 K/uL (0.11-0.59); Monocytes % (auto) 15.3 %; Neutrophils # (auto) 5.19 K/uL (1.4-6.5); Neutrophils % (auto) 64.3 %; Platelet Count 248 K/uL (130-400); RDW Coefficient of Variation 12.9 % (11.5-14.5); RDW Standard Deviation 45.7 fL (36.4-46.3); Red Blood Count 4.35 M/uL (4.7-6.1); White Blood Count 8.08 K/uL (4.8-10.8)
[2019-11-07 07:53] LABS: Mean Corpuscular Hgb Conc 32.9 g/dL (32-36)
[2019-11-07] MEDS ORDERED: NON-FORMULARY MEDICATION (Coenzyme Q10 100 MG) PO SCH (09:00)
[2019-11-07] MEDS ORDERED: CHOLECALCIFEROL 1,000 UNITS 25 MCG TAB PO SCH (09:00)
[2019-11-07] MEDS ORDERED: POTASSIUM CHLORIDE 20 MEQ TABCR PO STA (09:50)
[2019-11-07] MEDS: ASCORBIC ACID 500 MG TAB PO SCH (10:13)
[2019-11-07] MEDS: CEROVITE ADV FORMULA TAB PO SCH (10:13)
[2019-11-07] MEDS: POTASSIUM CHLORIDE 10 MEQ TABCR PO SCH (10:13)
[2019-11-07] MEDS: OXYBUTYNIN CHLORIDE 5 MG TAB PO SCH ×2 (10:13→20:20)
[2019-11-07] MEDS: CITALOPRAM 40 MG TAB PO SCH (10:13)
[2019-11-07] MEDS: OMEGA-3 (PURIFIED FISH OIL) 1 GM CAP PO SCH (10:14)
[2019-11-07] MEDS: CYCLOBENZAPRINE HCL 10 MG TAB PO SCH ×2 (10:14→20:20)
[2019-11-07] MEDS: MAGNESIUM OXIDE 400 MG TAB PO SCH (10:14)
--- NOTE | 2019-11-07 10:46 | Hospitalist Progress Note ---
Date of Service November 07, 2019 Assessment & Plan (1) Pyelonephritis: Patient is a 73-year-old male with PMH of MS, neurogenic bladder, HTN, glaucoma, depression who was sent to the ED by his PCP due to falls since Sunday. Has had several episodes of confusion for the past 3-4 days that have resolved quickly each time. Pt has neurogenic bladder and urinary retention--self-catheterizes at home. In the ED, UA was positive, labs showed elevated creatinine. Complicated Cystitis: - Patient self-caths at home--at-risk for UTIs, no prior history of these - Confusion episodes likely related to infection - Afebrile, no leukocytosis--follow AM CBC - Positive UA - Urine culture positive for gram-negative bacilli - ABD/Pelvic CT: - The bladder is markedly distended and demonstrates a mildly thickened wall for the degree of distention. This raises the possibility of a cystitis. Recommend correlation with urinalysis. - Mild bilateral perinephric edema has slightly progressed. This could be chronic or represent a pyelonephritis. - Mild left hydroureteronephrosis which is likely secondary to the distended bladder. - Ceftriaxone 2g IV daily - Monitor clinically Acute Kidney Injury: - Cr 3.08 on admission, downtrending this morning Falls - Seem to be mechanical in nature, likely related to BLE weakness related to his MS - expressed concern about her ability to properly care for him at home should he fall again - Case management consulted - PT/OT consulted - Follow CM, PT/OT recs Neurogenic bladder - Continue home oxybutinin 5mg PO BID Muscle stiffness - Continue home cyclobenzaprine 10mg PO BID Glaucoma - Continue home latanoprost 1 drop in each eye HS Depression - Continue home citalopram 40mg PO daily Insomnia - Continue home zolpidem 10mg PO qPM (2) ANGIE (acute kidney injury): (3) Glaucoma: (4) Multiple sclerosis: (5) Depression: (6) Neurogenic bladder: (7) Muscle stiffness: (8) Fall: (9) Insomnia: Admission and Anticipated Discharge Date Admission Date: November 06, 2019 Supervising Physician Co-Signing Physician Notes I personally examined the patient and verified all jalloh points of history and ex am, discussed case, and agree with decision making with Dr Sutton feeling better more talkative notes he drinks 3L water a day no urinary sx maybe not eating so well occcassional bowel movements vitals noted nad heent nc at mm dry breathing unlabored no accessory muscles good effort probable metabolic encephalopathy - seems related to ANGIE and hypercalcemia - which in turn appear most c/w hypovolemia. will need to corroborate PO intake w - if truly taking in 3L/day will need to dig for other causes of ANGIE/calcium - for now improving pyelonephritis from self catheterization ruled out - no SIRS let alone sepsis. self cathing and urinary retention would clearly lead to positive UA (and possibly culture) but he notes ZERO new urinary symptoms and no f/c/s. otherwise as above Subjective Patient states that he is here feeling fine this morning; with no abdominal pain, back pain, nausea, vomiting, or increased urinary frequency. Review of Systems Review of Systems: All systems reviewed & are unremarkable except as noted in Subjective Physical Exam Constitutional: WD/WN, vitals as above Eyes: PERRL, conjunctivae normal, anicteric sclerae Respiratory: normal respiratory effort, lungs clear to auscultation Cardiovascular: Rate/Rhythm: regular rate and regular rhythm Heart Sounds: no gallop, no murmur and no cardiac rub Gastrointestinal (Abdomen): normal bowel sounds, soft, nontender, no hepatosplenomegaly Neurologic: PERRL, EOMI, accommodation nl, no face palsy, no dysarthria Psychiatric: Orientation: alert and oriented x 3 Results & Data Results & Data ([facility]) Vital Signs (Past 12 Hours) Vital Signs Temp Pulse Pulse Resp BP BP Pulse Ox 11/07/19 07:58 36.8 C 87 20 155/80 H 93 11/07/19 04:47 185/105 H 11/07/19 04:42 88 11/07/19 04:00 36.5 C 81 192/104 H 97 11/07/19 01:07 171/96 H 11/07/19 00:41 36.9 C 83 24 198/109 H 99 Laboratory Results 11/07/19 11/07/19 11/07/19 Range/Units 15:45 15:45 07:33 WBC 8.08 RBC 4.35 L Hgb 13.9 L Hct 42.2 MCV 97.0 MCH 32.0 MCHC 32.9 RDW Std Deviation 45.7 RDW Coeff of Gracy 12.9 Plt Count 248 MPV 9.8 Immature Gran % (Auto) 0.1 Neut % (Auto) 64.3 Lymph % (Auto) 16.7 [place] % (Auto) 15.3 Eos % (Auto) 3.5 Baso % (Auto) 0.1 Neut # (Auto) 5.19 Lymph # (Auto) 1.35 [place] # (Auto) 1.24 H Eos # (Auto) 0.28 Baso # (Auto) 0.01 Immature Gran # (Auto) 0.01 Absolute Nucleated RBC Nucleated RBC % (auto) Neutrophils % (Manual) Band Neutrophils % Lymphocytes % (Manual) Prolymphocyte % Reactive Lymphs % (Man) Monocytes % (Manual) Eosinophils % (Manual) Basophils % (Manual) Metamyelocytes % (Man) Myelocytes % (Man) Promyelocytes % (Man) Blast Cells % (Manual) Plasma Cell % (Manual) Other Cells % Nucleated RBC % Neutrophils # (Manual) Band Neutrophils # Total Absolute Neuts Lymphocytes # (Manual) Prolymphocyte # Reactive Lymphs # Total Abs Lymphocytes Monocytes # (Manual) Eosinophils # (Manual) Basophils # (Manual) Metamyelocytes # (Man) Myelocytes # (Manual) Promyelocytes # (Man) Blast Cells # (Man) Plasma Cell # (Manual) Other Cells # Nucleated RBCs # (Man) Hypersegmented Neuts Hyposegmented Neuts Hypogranular Neuts Large Granular Lymphs # Lrg Granular Lymphs Hairy Cells Smudge Cells Toxic Granulation Toxic Vacuolation Dohle Bodies Sandra Rods Platelet Estimate Hypogranular Platelets Clumped Platelets Giant Platelets Platelet Satelliting RBC Morphology Polychromasia Hypochromasia Poikilocytosis Basophilic Stippling Anisocytosis Microcytosis Macrocytosis Spherocytes Pappenheimer Bodies Sickle Cells Target Cells Tear Drop Cells Ovalocytes Stomatocytes [place] Bodies Echinocytes Acanthocytes (Spur) Rouleaux RBC Agglutinates Schistocytes RBC Morph Comment Sezary Cell Sodium (136-145) mmol/L Potassium (3.5-5.1) mmol/L Chloride (98-107) mmol/L Carbon Dioxide (21-32) mmol/L Anion Gap (3-11) BUN (7-18) mg/dl Creatinine (0.6-1.4) mg/dl Est Cr Clr Drug Dosing ml/min Est GFR ( Amer) Est GFR (Non-Af Amer) BUN/Creatinine Ratio (10-20) Glucose (70-99) mg/dl Calcium (8.5-10.1) mg/dl COVID-19 Eval [facility] Hepatitis C Ab Screen (Neg) SARS-CoV-2, RNA, NAAT NEGATIVE (NEGATIVE) 11/07/19 11/07/19 11/07/19 Range/Units 05:51 05:51 05:51 WBC Cancelled RBC Cancelled Hgb Cancelled Hct Cancelled MCV Cancelled MCH Cancelled MCHC Cancelled RDW Std Deviation Cancelled RDW Coeff of Gracy Cancelled Plt Count Cancelled MPV Cancelled Immature Gran % (Auto) Cancelled Neut % (Auto) Cancelled Lymph % (Auto) Cancelled [place] % (Auto) Cancelled Eos % (Auto) Cancelled Baso % (Auto) Cancelled Neut # (Auto) Cancelled Lymph # (Auto) Cancelled [place] # (Auto) Cancelled Eos # (Auto) Cancelled Baso # (Auto) Cancelled Immature Gran # (Auto) Cancelled Absolute Nucleated RBC Cancelled Nucleated RBC % (auto) Cancelled Neutrophils % (Manual) Cancelled Band Neutrophils % Cancelled Lymphocytes % (Manual) Cancelled Prolymphocyte % Cancelled Reactive Lymphs % (Man) Cancelled Monocytes % (Manual) Cancelled Eosinophils % (Manual) Cancelled Basophils % (Manual) Cancelled Metamyelocytes % (Man) Cancelled Myelocytes % (Man) Cancelled Promyelocytes % (Man) Cancelled Blast Cells % (Manual) Cancelled Plasma Cell % (Manual) Cancelled Other Cells % Cancelled Nucleated RBC % Cancelled Neutrophils # (Manual) Cancelled Band Neutrophils # Cancelled Total Absolute Neuts Cancelled Lymphocytes # (Manual) Cancelled Prolymphocyte # Cancelled Reactive Lymphs # Cancelled Total Abs Lymphocytes Cancelled Monocytes # (Manual) Cancelled Eosinophils # (Manual) Cancelled Basophils # (Manual) Cancelled Metamyelocytes # (Man) Cancelled Myelocytes # (Manual) Cancelled Promyelocytes # (Man) Cancelled Blast Cells # (Man) Cancelled Plasma Cell # (Manual) Cancelled Other Cells # Cancelled Nucleated RBCs # (Man) Cancelled Hypersegmented Neuts Cancelled Hyposegmented Neuts Cancelled Hypogranular Neuts Cancelled Large Granular Lymphs Cancelled # Lrg Granular Lymphs Cancelled Hairy Cells Cancelled Smudge Cells Cancelled Toxic Granulation Cancelled Toxic Vacuolation Cancelled Dohle Bodies Cancelled Sandra Rods Cancelled Platelet Estimate Cancelled Hypogranular Platelets Cancelled Clumped Platelets Cancelled Giant Platelets Cancelled Platelet Satelliting Cancelled RBC Morphology Cancelled Polychromasia Cancelled Hypochromasia Cancelled Poikilocytosis Cancelled Basophilic Stippling Cancelled Anisocytosis Cancelled Microcytosis Cancelled Macrocytosis Cancelled Spherocytes Cancelled Pappenheimer Bodies Cancelled Sickle Cells Cancelled Target Cells Cancelled Tear Drop Cells Cancelled Ovalocytes Cancelled Stomatocytes Cancelled [place] Bodies Cancelled Echinocytes Cancelled Acanthocytes (Spur) Cancelled Rouleaux Cancelled RBC Agglutinates Cancelled Schistocytes Cancelled RBC Morph Comment Cancelled Sezary Cell Cancelled Sodium 140 (136-145) mmol/L Potassium 3.3 L (3.5-5.1) mmol/L Chloride 105 (98-107) mmol/L Carbon Dioxide 29 (21-32) mmol/L Anion Gap 6.0 (3-11) BUN 42 H (7-18) mg/dl Creatinine 2.93 H (0.6-1.4) mg/dl Est Cr Clr Drug Dosing 26.0 ml/min Est GFR ( Amer) 23.7 Est GFR (Non-Af Amer) 20.4 BUN/Creatinine Ratio 14.5 (10-20) Glucose 141 H (70-99) mg/dl Calcium 11.3 H (8.5-10.1) mg/dl COVID-19 Eval Order Hepatitis C Ab Screen Neg (Neg) SARS-CoV-2, RNA, NAAT (NEGATIVE) Medications Administered Current Inpatient Medications Acetaminophen (Acetaminophen 325 Mg Tab) 650 mg PO Q4H PRN PRN Reason: Pain or Fever Stop: 12/06/19 20:51 Ascorbic Acid (Ascorbic Acid 500 Mg Tab) 1,000 mg PO DAILY [facility] Stop: 12/07/19 08:59 Last Admin: 11/07/19 10:13 Dose: 1,000 mg Documented by: Citalopram Hydrobromide (Citalopram 40 Mg Tab) 40 mg PO DAILY [facility] Stop: 12/07/19 08:59 Last Admin: 11/07/19 10:13 Dose: 40 mg Documented by: Cyclobenzaprine HCl (Cyclobenzaprine Hcl 10 Mg Tab) 10 mg PO BID [facility] Stop: 12/06/19 20:59 Last Admin: 11/07/19 10:14 Dose: 10 mg Documented by: Fish Oil ([place]-3 (Purified Fish Oil) 1 Gm Cap) 4 gm PO DAILY [facility] Stop: 12/07/19 08:59 Last Admin: 11/07/19 10:14 Dose: 4 gm Documented by: Heparin Sodium (Porcine) (Heparin Sod 5,000 Unit/0.5 Ml Vial) 5,000 units SQ Q8 [facility] Stop: 12/06/19 21:59 Last Admin: 11/07/19 16:13 Dose: 5,000 units Documented by: Hydralazine HCl (Hydralazine Hcl 20 Mg/Ml Vial) 5 mg IV Q4H PRN PRN Reason: sBP > 160 Stop: 12/06/19 22:47 Last Admin: 11/07/19 04:09 Dose: 5 mg Documented by: Ceftriaxone Sodium 2,000 mg/ (Dextrose) 70 mls @ 100 mls/hr IV Q24H [facility]; Protocol Stop: 11/17/19 16:59 Last Infusion: 11/07/19 17:00 Dose: Infused Documented by: Sodium Chloride (Nss 1000ml) 1,000 mls @ 125 mls/hr IV .Q8H [facility] Stop: 12/07/19 10:44 Last Admin: 11/07/19 11:57 Dose: 125 mls/hr Documented by: Latanoprost (Latanoprost 0.005% Op Soln 2.5 Ml Btl) 1 drops OPB HS [facility] Stop: 12/06/19 20:59 Last Admin: 11/06/19 22:06 Dose: 1 drops Documented by: Magnesium Oxide (Magnesium Oxide 400 Mg Tab) 400 mg PO DAILY [facility] Stop: 12/07/19 08:59 Last Admin: 11/07/19 10:14 Dose: 400 mg Documented by: Multivitamins/Minerals (Cerovite Adv Formula Tab) 1 tab PO DAILY [facility] Stop: 12/07/19 08:59 Last Admin: 11/07/19 10:13 Dose: 1 tab Documented by: Ondansetron HCl (Ondansetron Inj 2 Mg/Ml 2 Ml Vial) 4 mg IV Q6H PRN PRN Reason: Nausea Stop: 12/06/19 20:51 Oxybutynin Chloride (Oxybutynin Chloride 5 Mg Tab) 5 mg PO BID [facility] Stop: 12/06/19 20:59 Last Admin: 11/07/19 10:13 Dose: 5 mg Documented by: Polyethylene Glycol (Polyethylene (Miralax) 17 Gm Pack) 17 gm PO DAILY PRN PRN Reason: Constipation Stop: 12/06/19 20:51 Potassium Chloride (Potassium Chloride 10 Meq Tabcr) 10 meq PO DAILY [facility] Stop: 12/07/19 08:59 Last Admin: 11/07/19 10:13 Dose: 10 meq Documented by: Zolpidem Tartrate (Zolpidem Tartrate 10 Mg Tab) 10 mg PO QPM [facility] Stop: 12/06/19 20:59 Last Admin: 11/06/19 22:04 Dose: 10 mg Documented by: Resident Activity Tracking Resident Involvement: Resident Care Provided Care Provided: Adult [facility] Medicine
[2019-11-07] MEDS: SODIUM CHLORIDE 0.9% 1000ML 1,000 ML IV SCH ×2 (11:57→20:19)
[2019-11-07] MEDS: cefTRIAXone SODIUM 2,000 MG in DEXTROSE 5% 50 ML IV SCH (16:13)
--- NOTE | 2019-11-07 17:30 | Billing Data ---
Date of Service November 07, 2019 Coding Level of Care Code 92923 Subseq Hosp Care Lvl 3
[2019-11-07] MEDS: ZOLPIDEM TARTRATE 10 MG TAB PO SCH (20:19)
[2019-11-07] MEDS: LATANOPROST 0.005% OP SOLN 2.5 ML BTL OPB SCH (20:20)
[2019-11-08] MEDS: SODIUM CHLORIDE 0.9% 1000ML 1,000 ML IV SCH ×3 (03:26→23:51)
[2019-11-08 06:20] LABS: Basophils # (auto) 0.02 K/uL (0-0.2); Basophils % (auto) 0.3 %; Eosinophils # (auto) 0.41 K/uL (0-0.5); Hematocrit (blood only) 34.5 % (42-52); Hemoglobin 11.6 g/dL (14.0-18.0); Immature Granulocytes # (auto) 0.01 K/uL (0.00-0.02); Immature Granulocytes % (auto) 0.1 %; Lymphocytes # (auto) 1.47 K/uL (1.2-3.4); Lymphocytes % (auto) 21.5 %; Mean Corpuscular Hemoglobin 32.2 pg (25-34); Mean Corpuscular Hgb Conc 33.6 g/dL (32-36); Mean Corpuscular Volume 95.8 fL (80-100); Mean Platelet Volume 9.9 fL (7.4-10.4); Monocytes # (auto) 0.95 K/uL (0.11-0.59); Monocytes % (auto) 13.9 %; Neutrophils # (auto) 3.99 K/uL (1.4-6.5); Neutrophils % (auto) 58.2 %; Platelet Count 200 K/uL (130-400); RDW Standard Deviation 45.7 fL (36.4-46.3); White Blood Count 6.85 K/uL (4.8-10.8)
[2019-11-08 06:49] LABS: BUN Creatinine Ratio 14.9 (10-20); Calcium 10.1 mg/dl (8.5-10.1); Creatinine Clr Calc Pharmacy 31.6 ml/min; Est GFR (African American) 29.8; Est GFR (Non-African American) 25.7; Potassium 3.6 mmol/L (3.5-5.1)
[2019-11-08 06:50] LABS: Phosphorus 2.5 mg/dl (2.5-4.9)
--- NOTE | 2019-11-08 06:58 | Hospitalist Progress Note ---
Date of Service November 08, 2019 Assessment & Plan (1) Pyelonephritis: 73 yo M PMHx MS, neurogenic bladder, HTN, glaucoma, depression admitted for confusion and falls, found to have ANGIE. Confusion: -Possibly multifactorial with etiologies possibly including infectious, delirium, ANGIE due to dehydration. - Treatment for these laid out below. - Patient is much more alert and oriented today per and per evaluation with attending. - Up out of bed during the day and while awake, reorientation when necessary. Acute Kidney Injury: - Cr 3.08 on admission, further downtrending this morning to 2.42 on IV fluids. -Suspect that this patient's ANGIE is prerenal in origin given elevated BUN and tacky mucous membranes for several days. -Postrenal is possible given his history of neurogenic bladder, Posey in place at this time. -Patient's mucous membranes were still tacky this morning, and given history from it is possible that he has had several days of decreased p.o. fluid intake at home. -Continue NSS at rate of 125 mL/hr, as well as encourage p.o. intake. -Renally dosing meds. Complicated Cystitis: - Patient self-caths at home, therefore at increased risk for UTIs though no reported history of these. -Confusion is possibly secondary to infection. -Urine culture today grew pansensitive Serratia marcescens. Continues to be afebrile and without leukocytosis. - ABD/Pelvic CT: - The bladder is markedly distended and demonstrates a mildly thickened wall for the degree of distention. This raises the possibility of a cystitis. Recommend correlation with urinalysis. - Mild bilateral perinephric edema has slightly progressed. This could be chronic or represent a pyelonephritis. - Mild left hydroureteronephrosis which is likely secondary to the distended bladder. - Continue ceftriaxone 2g IV daily until tomorrow. -IV fluids as above. Falls: - Seem to be mechanical in nature, likely related to BLE weakness related to his MS. - expressed concern about her ability to properly care for him at home should he fall again. - Case management consulted; for possible placement to [facility] tomorrow, or Sunday. -Continue PT/OT while admitted. Neurogenic bladder: - Continue home oxybutinin 5mg PO BID. -Posey catheter in place, will need removal prior to discharge. Muscle stiffness: - Continue home cyclobenzaprine 10mg PO BID. Glaucoma: - Continue home latanoprost 1 drop in each eye HS. Depression: - Continue home citalopram 40mg PO daily. Insomnia: - Continue home zolpidem 10mg PO qPM. Code Status: FULL CODE DVT ppx: Heparin FENGI: Regular diet, IVF NSS 125ml/hr Dispo: MedSurg with telemetry (2) ANGIE (acute kidney injury): (3) Glaucoma: (4) Multiple sclerosis: (5) Depression: (6) Neurogenic bladder: (7) Muscle stiffness: (8) Fall: (9) Insomnia: Admission and Anticipated Discharge Date Admission Date: November 06, 2019 Supervising Physician Co-Signing Physician Notes I personally examined the patient and verified all jalloh points of history and exam, discussed case, and agree with decision making with Dr Walsh wondering about going home. no new complaints otherwise vitals noted nad heent nc at mm dry breathing unlabored no accessory muscles good effort probable metabolic encephalopathy - seems related to ANGIE and hypercalcemia - which in turn appear most c/w hypovolemia. in d/w dr walsh was not totally aware of PO intake last few days - so since he was not mentally himself it's quite possible that he wasn't taking in well. improving. fluids. follow pyelonephritis from self catheterization ruled out - no SIRS let alone sepsis. self cathing and urinary retention would clearly lead to positive UA (and possibly culture) but he notes ZERO new urinary symptoms and no f/c/s. due to high risk for cystitis and qusetionable as to whether or not he could have sx - ok to finish treating as isolated cystitis alone related to self catheterization. otherwise as above Subjective Patient without acute events overnight. Feels "about the same" as yesterday, though per his he is much more alert and oriented and closer to his baseline today as compared to yesterday. Collateral gathered from the today. She states that for several days, starting on Sunday evening, she started to notice that Javy was a little bit more confused than his usual self. 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 During this time he did not have any particular complaints such as chest pain, shortness of breath, palpitations, abdominal pain, nausea or vomiting, diarrhea or constipation. Did not complain of dysuria however does self cath and does not urinate without cathing. No hematuria, though his notes that for several days his urine was more cloudy than she is used to seeing. No measured fevers or chills at home. She reports that he does have a large jug that he drinks water out of during the day, but for a couple of days he "may not have drunk as much as he usually does". Review of Systems Review of Systems: All systems reviewed & are unremarkable except as noted in HPI & below Constitutional: no fever, no chills and no malaise Respiratory: no cough and no dyspnea Cardiovascular: no chest pain, no palpitations and no edema Gastrointestinal: no abdominal pain, no constipation and no diarrhea/loose stools Physical Exam Constitutional: WD/WN, vitals as above Eyes: PERRL, conjunctivae normal, anicteric sclerae Respiratory: normal respiratory effort, lungs clear to auscultation Cardiovascular: Rate/Rhythm: regular rate and regular rhythm Heart Sounds: no gallop, no murmur and no cardiac rub Gastrointestinal (Abdomen): normal bowel sounds, soft, nontender, no hepatosplenomegaly Neurologic: PERRL, EOMI, accommodation nl, no face palsy, no dysarthria Psychiatric: Orientation: alert and oriented x 3 Results & Data Results & Data ([facility]) Vital Signs (Past 12 Hours) Vital Signs Temp Pulse Pulse Resp BP Pulse Ox 11/08/19 03:22 36.5 C 89 22 160/92 H 93 11/07/19 23:29 36.6 C 78 20 157/75 H 95 11/07/19 23:17 61 11/07/19 19:09 36.7 C 80 18 163/82 H 96 Resident Activity Tracking Resident Involvement: Resident Care Provided Care Provided: Adult Hospital Medicine
[2019-11-08] MEDS: MAGNESIUM OXIDE 400 MG TAB PO SCH (08:31)
[2019-11-08] MEDS: OMEGA-3 (PURIFIED FISH OIL) 1 GM CAP PO SCH (08:31)
[2019-11-08] MEDS: HydrALAZINE HCL 20 MG/ML VIAL IV PRN (08:31)
[2019-11-08] MEDS: CEROVITE ADV FORMULA TAB PO SCH (08:32)
[2019-11-08] MEDS: ASCORBIC ACID 500 MG TAB PO SCH (08:32)
[2019-11-08] MEDS: CITALOPRAM 40 MG TAB PO SCH (08:32)
[2019-11-08] MEDS: HEPARIN SOD 5,000 UNIT/0.5 ML VIAL SQ SCH ×3 (08:32→21:17)
[2019-11-08] MEDS: POTASSIUM CHLORIDE 10 MEQ TABCR PO SCH (08:32)
[2019-11-08] MEDS: CYCLOBENZAPRINE HCL 10 MG TAB PO SCH ×2 (08:33→21:18)
[2019-11-08] MEDS: OXYBUTYNIN CHLORIDE 5 MG TAB PO SCH ×2 (08:33→21:17)
[2019-11-08] MEDS: cefTRIAXone SODIUM 2,000 MG in DEXTROSE 5% 50 ML IV SCH (17:47)
--- NOTE | 2019-11-08 18:02 | Billing Data ---
Date of Service November 08, 2019 Coding Level of Care Code 99827 Subseq Hosp Care Lvl 3
[2019-11-08] MEDS: LATANOPROST 0.005% OP SOLN 2.5 ML BTL OPB SCH (21:18)
[2019-11-08] MEDS: ZOLPIDEM TARTRATE 10 MG TAB PO SCH (21:21)
[2019-11-08] MEDS ORDERED: Nursing to Pharmacy Communication SCH (21:30)
[2019-11-09] MEDS: HydrALAZINE HCL 20 MG/ML VIAL IV PRN (03:58)
[2019-11-09] MEDS: HEPARIN SOD 5,000 UNIT/0.5 ML VIAL SQ SCH (05:52)
[2019-11-09] MEDS: SODIUM CHLORIDE 0.9% 1000ML 1,000 ML IV SCH (07:27)
[2019-11-09] MEDS: OXYBUTYNIN CHLORIDE 5 MG TAB PO SCH (07:27)
[2019-11-09] MEDS: CYCLOBENZAPRINE HCL 10 MG TAB PO SCH (07:27)
[2019-11-09] MEDS: CITALOPRAM 40 MG TAB PO SCH (07:27)
[2019-11-09] MEDS: CEROVITE ADV FORMULA TAB PO SCH (07:28)
[2019-11-09] MEDS: ASCORBIC ACID 500 MG TAB PO SCH (07:28)
[2019-11-09] MEDS: OMEGA-3 (PURIFIED FISH OIL) 1 GM CAP PO SCH (07:28)
[2019-11-09] MEDS: MAGNESIUM OXIDE 400 MG TAB PO SCH (07:28)
[2019-11-09] MEDS: POTASSIUM CHLORIDE 10 MEQ TABCR PO SCH (07:28)
[2019-11-09 07:30] LABS: Basophils # (auto) 0.02 K/uL (0-0.2); Basophils % (auto) 0.3 %; Eosinophils # (auto) 0.53 K/uL (0-0.5); Eosinophils % (auto) 7.8 %; Hematocrit (blood only) 35.6 % (42-52); Immature Granulocytes # (auto) 0.02 K/uL (0.00-0.02); Immature Granulocytes % (auto) 0.3 %; Lymphocytes # (auto) 1.54 K/uL (1.2-3.4); Lymphocytes % (auto) 22.6 %; Mean Corpuscular Hemoglobin 32.3 pg (25-34); Mean Corpuscular Hgb Conc 33.7 g/dL (32-36); Mean Corpuscular Volume 95.7 fL (80-100); Mean Platelet Volume 9.8 fL (7.4-10.4); Monocytes # (auto) 0.66 K/uL (0.11-0.59); Monocytes % (auto) 9.7 %; Neutrophils # (auto) 4.04 K/uL (1.4-6.5); Neutrophils % (auto) 59.3 %; Platelet Count 209 K/uL (130-400); RDW Coefficient of Variation 13.2 % (11.5-14.5); Red Blood Count 3.72 M/uL (4.7-6.1); White Blood Count 6.81 K/uL (4.8-10.8)
[2019-11-09 07:55] LABS: BUN Creatinine Ratio 15.4 (10-20); Calcium 9.5 mg/dl (8.5-10.1); Creatinine Clr Calc Pharmacy 37.8 ml/min; Potassium 3.5 mmol/L (3.5-5.1)
--- NOTE | 2019-11-09 09:37 | Hospitalist Progress Note ---
Date of Service November 09, 2019 Assessment & Plan (1) Pyelonephritis: 73 yo M PMHx MS, neurogenic bladder, HTN, glaucoma, depression admitted for confusion and falls, found to have ANGIE. Confusion: - Possibly multifactorial with etiologies possibly including infectious, delirium, ANGIE due to dehydration. - Treatment for these laid out below. - Patient continues to improve with regard to his level of alertness and orientation this hospital stay. - Up out of bed during the day and while awake, reorientation when necessary. - Case management consulted; for placement to [facility] once medically stable, approved for possible placement tomorrow if ANGIE resolves. Acute Kidney Injury: - Cr 3.08 on admission, further downtrending this morning 2.42 -> 2.01 on IV fluids. - Suspect that this patient's ANGIE is prerenal in origin given elevated BUN and tacky mucous membranes for several days, with improvement with IVF. - Postrenal is possible given his history of neurogenic bladder, Posey in place at this time. - Patient's mucous membranes were still tacky this morning, and given history from it is possible that he has had several days of decreased p.o. fluid intake at home. - Continue NSS at rate of 125 mL/hr, as well as encourage p.o. intake. - Renally dosing meds. Complicated Cystitis: - Patient self-caths at home, therefore at increased risk for UTIs with history of three UTIs in the past, follows with Urologist in the area. - States that in the past he has known he had a UTI by the color and smell of the urine, which he also noted this time. - Confusion is possibly secondary to infection, as well as dehydration. - Urine culture grew pansensitive Serratia marcescens. - Continues to be afebrile and without leukocytosis. - CTAP showed: - The bladder is markedly distended and demonstrates a mildly thickened wall for the degree of distention. This raises the possibility of a cystitis. Recommend correlation with urinalysis. - Mild bilateral perinephric edema has slightly progressed. This could be chronic or represent a pyelonephritis. - Mild left hydroureteronephrosis which is likely secondary to the distended bladder. - Continue ceftriaxone 2g IV daily while admitted. - IV fluids as above. Constipation: - History of, at home takes MiraLAX 1 packet daily as needed to achieve 1 soft bowel movement per day. -MiraLAX 1 packet daily scheduled while admitted, if no BM by this afternoon we will add another packet. Falls: - Seem to be mechanical in nature, likely related to BLE weakness related to his MS. - expressed concern about her ability to properly care for him at home should he fall again. - Continue PT/OT while admitted. Neurogenic bladder: - Continue home oxybutynin 5mg PO BID. - Posey catheter in place, will trial removal today. Muscle stiffness: - Continue home cyclobenzaprine 10mg PO BID. Glaucoma: - Continue home latanoprost 1 drop in each eye HS. Depression: - Continue home citalopram 40mg PO daily. Insomnia: - Continue home zolpidem 10mg PO qPM. Code Status: FULL CODE DVT ppx: Heparin FENGI: Regular diet, IVF NSS 125ml/hr Dispo: MedSurg with telemetry Admission and Anticipated Discharge Date Admission Date: November 06, 2019 Subjective Overnight with no acute events. Patient's vitals have been stable and he continues to be afebrile. No complaints this morning or concerns from the patient. Patient is very alert this morning and oriented, and discussed with me that in the past when he has had UTIs, of which he has had 3, he will note that he has a UTI due to the color and odor of urine. Does not endorse any fevers or chills, no abdominal or pelvic area pain, no nausea or vomiting, no back pain. Patient looks forward to going to [facility] as it is closer to his home. Patient reports not having had a bowel movement for several days, at home takes MiraLAX daily as needed for 1 bowel movement per day. Review of Systems Review of Systems: All systems reviewed & are unremarkable except as noted in HPI & below Constitutional: no fever, no chills and no malaise Respiratory: no cough and no dyspnea Cardiovascular: no chest pain, no palpitations and no edema Gastrointestinal: no abdominal pain, no constipation and no diarrhea/loose stools Physical Exam Constitutional: WD/WN, vitals as above Eyes: PERRL, conjunctivae normal, anicteric sclerae ENMT: Moist mucous membranes Neck: normal visual inspection Respiratory: normal respiratory effort, lungs clear to auscultation Cardiovascular: Rate/Rhythm: regular rate and regular rhythm Heart Sounds: no gallop and no murmur Gastrointestinal (Abdomen): normal bowel sounds, soft, nontender, no hepatosplenomegaly Skin: no rashes, warm and dry Neurologic: PERRL, EOMI, accommodation nl, no face palsy, no dysarthria Psychiatric: A+Ox3, euthymic affect Results & Data Results & Data ([facility]) Vital Signs (Past 12 Hours) Vital Signs Temp Pulse Pulse Pulse Resp BP Pulse Ox 11/09/19 07:31 36.7 C 92 H 18 165/84 H 96 11/09/19 07:16 94 H 11/09/19 03:47 36.4 C L 89 20 176/87 H 98 11/09/19 00:16 79 11/08/19 22:51 36.6 C 76 18 179/99 H 97 Resident Activity Tracking Resident Involvement: Resident Care Provided Care Provided: Adult Hospital Medicine
[2019-11-09] MEDS ORDERED: FLUTICASONE PROPIONATE NA SPR 16 GM BTL SCH (10:30)
--- NOTE | 2019-11-09 10:53 | Discharge Summary ---
Date of Service November 09, 2019 Admission HPI Per Admitting Provider Patient is a 73-year-old male with PMH of MS, neurogenic bladder, HTN, glaucoma, depression who was sent to the ED by his PCP due to falls since Sunday. His is in the room with him and reports that he has fallen twice--the first while seated on the toilet and he slipped off. The second fall occurred yesterday-- was not present but patient says he had fallen off his wheelchair when doing his usual self-catheterization for his urinary retention. He denies having lost consciousness or feeling dizzy before the fall. He was unable to get back up due to a preexisting tear in his biceps that was noted by his PCP back in June 2019. Patient's also reports that he has had several episodes of confusion for the past 3-4 days that have resolved quickly each time. The patient denies any associated focal deficits apart from baseline changes or vision changes. In the ED, patient's UA was psoitive for LE, bacteria, WBC, and 1+ blood. Labs showed elevated creatinine, mild hypokalemia, moderate hypercalcemia, mild hypermagnesemia. No leukocytosis. ABD/pelvic CT noted marked bladder distention and demonstrates a mildly thickened wall for the degree of distention, raising the possibility of cystitis. Mild bilateral perinephric edema has slightly progressed. This could be chronic or represent a pyelonephritis. Head CT, cervical spine CT, CXR, Lt shoulder XR, Lt humerus XR, pelvis XR all noncontributory, except for mention fo large hiatal hernia. Patient denies fever, chills, CP, palpitations, SOB, cough, nausea, vomiting, diarrhea. Admission Exam Per Admitting Provider Constitutional: WD/WN, vitals as above no acute distress Eyes: PERRL, conjunctivae normal, anicteric sclerae EOM intact bilaterally ENMT: external ear and nose normal, oropharynx normal Ears: + hearing impairment (hearing aids in, hearing normal with them) Neck: trachea midline, no thyromegaly Respiratory: normal respiratory effort, lungs clear to auscultation Auscultation: no crackles, no rales, no rhonchi and no wheezes Cardiovascular: RRR, no murmur, no edema Heart Sounds: normal S1 and normal S2; no gallop, no murmur and no cardiac rub Chest (Breasts): Chest: normal inspection of chest Gastrointestinal (Abdomen): normal bowel sounds, soft, nontender, no hepatosplenomegaly Musculoskeletal: Head/Neck/Chest: normocephalic; full ROM of neck Extremities: extremities normal to inspection and + abnormal strength (see neuro exam); no cyanosis and no clubbing Skin: no rashes, warm and dry Neurologic: CN II, III, IV, and VII normal. CN VIII: hearing normal with hearing aids. Flexion of UE 3/5, extension 5/5. Sunglass Clip Attacher strength 5/5 B/L. Lower extremities: very limited movement, able to wiggle toes. Psychiatric: A+Ox3, euthymic affect Speech: normal rate/rhythm/volume of speech Lymphatic: no cervical or axillary lymphadenopathy Principal Diagnosis ANGIE 2/2 dehydration Discharge Exam Constitutional WD/WN, vitals as above Eyes PERRL, conjunctivae normal, anicteric sclerae ENMT external ear and nose normal, oropharynx normal Neck normal visual inspection Respiratory normal respiratory effort, lungs clear to auscultation Cardiovascular RRR, no murmur, no edema Gastrointestinal (Abdomen) normal bowel sounds, soft, nontender, no hepatosplenomegaly Skin no rashes, warm and dry Psychiatric A+Ox3, euthymic affect Discharge Data Allergies Allergy/AdvReac Type Severity Reaction Status Date / Time No Known Allergies Allergy Verified 11/06/19 18:55 Consultations 11/06/19 16:29 ED Decision to Admit Stat 11/06/19 20:52 Consult Case Management - Discharge Planning Routine Ordered Studies 11/06/19 15:06 CT abd pelvis wo con Stat CT cervical spine wo con Stat CT head/brain wo con Stat Hospital Course (1) Confusion: 73 yo M PMHx MS, neurogenic bladder, HTN, glaucoma, depression admitted for confusion and falls, found to have ANGIE. Confusion: - Possibly multifactorial with etiologies however most likely from ANGIE due to dehydration. - Treatment for ANGIE as below. - Patient continues to improve with regard to his level of alertness and orientation this hospital stay. - Up out of bed during the day and while awake, reorientation when necessary. Acute Kidney Injury: - Cr 3.08 on admission, further downtrending this morning to 2.01 on IV fluids. Baseline is ~1.35. - Suspect that this patient's ANGIE is prerenal in origin given elevated BUN and tacky mucous membranes for several days, with improvement with IVF. - Postrenal is possible given his history of neurogenic bladder, Posey discontinued today in leui of straight cathing as needed. - Patient's mucous membranes were moist this morning, and given history from it is possible that he has had several days of decreased p.o. fluid intake at home. - While admitted received NSS at rate of 125 mL/hr. When discharged ensure water intake of at least 2500mL to continue fluid repletion. - Renally dose meds. - Repeat BMP tomorrow and as needed to follow for resolution to normal. ? Cystitis: - Patient self-caths at home, therefore at increased risk for UTIs with history of three UTIs in the past, follows with Urologist in the area. - States that in the past he has known he had a UTI by the color and smell of the urine, but never experiences abdominal pain or cath pain. - Urine culture grew pansensitive Serratia marcescens. - Continues to be afebrile and without leukocytosis. No urinary symptoms suggestive of cystitis. - CTAP showed: - The bladder is markedly distended and demonstrates a mildly thickened wall for the degree of distention. This raises the possibility of a cystitis. - Mild bilateral perinephric edema has slightly progressed. This could be chronic. - Mild left hydroureteronephrosis which is likely secondary to the distended bladder. - Received ceftriaxone 3 doses while admitted. Have discontinued today as unlikely to be UTI. - Fluids as above. Constipation: - History of, at home takes MiraLAX 1 packet daily as needed to achieve 1 soft bowel movement per day. - MiraLAX 1 packet daily scheduled while admitted, titrate and increase Miralax amount as needed for 1 soft BM daily. Falls: - Seem to be mechanical in nature, likely related to BLE weakness related to his MS. - expressed concern about her ability to properly care for him at home should he fall again. - Continue PT/OT while at SNF for conditioning. Neurogenic bladder: - Continue home oxybutynin 5mg PO BID. - Patient will self-cath as needed. Muscle stiffness: - Continue home cyclobenzaprine 10mg PO BID. Glaucoma: - Continue home latanoprost 1 drop in each eye HS. Depression: - Continue home citalopram 40mg PO daily. Insomnia: - Continue home zolpidem 10mg PO qPM. Code Status: FULL CODE (2) Insomnia: (3) Fall: (4) ANGIE (acute kidney injury): (5) Muscle stiffness: (6) Multiple sclerosis: (7) Neurogenic bladder: (8) Depression: Total Time Total Time Spent Total Time Spent (In Minutes): see attending attestation Discharge Plan Discharge Items Patient Disposition: Transfer Correction Fac Reason For Visit: UTI/PYELO Discharge Diagnosis: Dehydration causing ANGIE Activity: Per Instructions section Non-emergency contact: Primary Care Provider and Urologist Call non-emergency contact if: you have any medication questions, your symptoms worsen and your temperature is above 101 Follow-up/Referrals: Nguyen Guzman DO [Primary Care Provider] - Diet: Heart Healthy Addtl Attending Provider Instructions: 73 yo M PMHx MS, neurogenic bladder, HTN, glaucoma, depression admitted for confusion and falls, found to have ANGIE. Confusion: - Possibly multifactorial with etiologies possibly including infectious, delirium, ANGIE due to dehydration. - Treatment for these laid out below. - Patient continues to improve with regard to his level of alertness and orientation this hospital stay. - Up out of bed during the day and while awake, reorientation when necessary. Acute Kidney Injury: - Cr 3.08 on admission, further downtrending this morning to 2.01 on IV fluids. Baseline is ~1.35. - Suspect that this patient's ANGIE is prerenal in origin given elevated BUN and tacky mucous membranes for several days, with improvement with IVF. - Postrenal is possible given his history of neurogenic bladder, Posey discontinued today in leui of straight cathing as needed. - Patient's mucous membranes were moist this morning, and given history from it is possible that he has had several days of decreased p.o. fluid intake at home. - While admitted received NSS at rate of 125 mL/hr. When discharged ensure water intake of at least 2500mL to continue fluid repletion. - Renally dose meds. - Repeat BMP tomorrow and as needed to follow for resolution to normal. ? Cystitis: - Patient self-caths at home, therefore at increased risk for UTIs with history of three UTIs in the past, follows with Urologist in the area. - States that in the past he has known he had a UTI by the color and smell of the urine, but never experiences abdominal pain or cath pain. - Urine culture grew pansensitive Serratia marcescens. - Continues to be afebrile and without leukocytosis. No urinary symptoms suggestive of cystitis. - CTAP showed: - The bladder is markedly distended and demonstrates a mildly thickened wall for the degree of distention. This raises the possibility of a cystitis. - Mild bilateral perinephric edema has slightly progressed. This could be chronic. - Mild left hydroureteronephrosis which is likely secondary to the distended bladder. - Received ceftriaxone 3 doses while admitted. Have discontinued today as unlikely to be UTI. - Fluids as above. Constipation: - History of, at home takes MiraLAX 1 packet daily as needed to achieve 1 soft bowel movement per day. - MiraLAX 1 packet daily scheduled while admitted, titrate and increase Miralax amount as needed for 1 soft BM daily. Falls: - Seem to be mechanical in nature, likely related to BLE weakness related to his MS. - expressed concern about her ability to properly care for him at home should he fall again. - Continue PT/OT while at SNF for conditioning. Neurogenic bladder: - Continue home oxybutynin 5mg PO BID. - Patient will self-cath as needed. Muscle stiffness: - Continue home cyclobenzaprine 10mg PO BID. Glaucoma: - Continue home latanoprost 1 drop in each eye HS. Depression: - Continue home citalopram 40mg PO daily. Insomnia: - Continue home zolpidem 10mg PO qPM. Code Status: FULL CODE Pending Studies at Discharge: No Stand-Alone Forms: My [facility] Skilled Items Patient informed of condition?: Yes DNR: No Discharge Level of Care: Skilled Communicable Disease: No Discharge Prognosis: Improving Lines: None Urinary Catheter: No Medications and DC Order Prescriptions: Continued oxybutynin chloride 5 mg tablet 5 mg PO BID Qty: 180 RF: 3 citalopram 40 mg tablet 40 mg PO DAILY Qty: 90 RF: 1 cyclobenzaprine 10 mg tablet 10 mg PO BID 30 Days Qty: 60 RF: 4 cholecalciferol (vitamin D3) 5,000 unit tablet 5,000 units PO DAILY RF: 0 ascorbic acid (vitamin C) 500 mg tablet 1,000 mg PO DAILY RF: 0 coenzyme Q10 100 mg capsule 100 mg PO DAILY RF: 0 magnesium oxide 400 mg (241.3 mg magnesium) tablet 400 mg PO BID RF: 0 omega-3 acid ethyl esters 1 gram capsule 4 cap PO DAILY RF: 0 polyethylene glycol 3350 17 gram/dose powder 17 g PO DAILY PRN (Reason: Constipation) RF: 0 zolpidem 10 mg tablet 10 mg PO QPM RF: 0 latanoprost 0.005 % drops 1 drp OPB HS RF: 0 multivitamin with iron-mineral Tablet 1 tab PO DAILY RF: 0 Discharge Orders: Discharge Order (Routine); Ordered 11/09/19 Ordered By: Charis Whitt Admission Data Admit Date/Time: 11/06/19 19:10 Attending Provider: Larry Hines Admit Provider: Pierce Quick Primary Care Provider: Nguyen Guzman Other Providers: Preston Murillo ; Cale Pike Other Interventions: Discharge Summary Assessment (RN) Last Done: 11/09/19 10:54 Supervising Physician Co-Signing Physician Notes I personally examined the patient and verified all jalloh points of history and exam, discussed case, and agree with decision making with Dr Lea wondering about going home. no new complaints otherwise vitals noted nad heent nc at mm dry breathing unlabored no accessory muscles good effort probable metabolic encephalopathy - seems related to ANGIE and hypercalcemia - which in turn appear most c/w hypovolemia. in d/w dr lea was not totally aware of PO intake last few days - so since he was not mentally himself it's quite possible that he wasn't taking in well. improving. stable for dishcarge. PO fluids. BMP around 11/10. pyelonephritis from self catheterization ruled out - no SIRS let alone sepsis. self cathing and urinary retention would clearly lead to positive UA (and possibly culture) but he notes ZERO new urinary symptoms and no f/c/s. due to high risk for cystitis and qusetionable as to whether or not he could have sx - treated for short course as isolated cystitis alone related to self catheterization but this was even in question. otherwise as above Resident Activity Tracking Resident Involvement: Resident Care Provided Care Provided: [facility]
--- NOTE | 2019-11-09 17:04 | Billing Data ---
Date of Service November 09, 2019 Coding Level of Care Code D/C Day Management <30 mins
[2019-11-10] MEDS ORDERED: POLYETHYLENE (MIRALAX) 17 GM PACK PO SCH (09:00)
== END 2019-11-09 14:44 | DRG 689 ==
LOC: ED 13:45 → SUATTDRO 19:10 → 2E 19:10 → 2W 11-08 17:34

== ENCOUNTER 2023-04-26 16:19 | Inpatient (IN) ==
--- NOTE | 2023-04-26 16:28 | Emergency Department Note ---
Impression & Plan Multiple sclerosis, Ambulatory dysfunction, Wound of buttock ED Provider Note Provider: Alan Langford MD DATE OF SERVICE: 04/26/2023 CHIEF COMPLAINT: Wound assessment HISTORY OF PRESENT ILLNESS: Patient is a 77-year-old gentleman history of multiple sclerosis, hypertension, and urinary retention with a history of self cathing presenting via ambulance from [facility]. Resides there with his and one of the cottages. Patient unfortunately has not been ambulatory in more than a decade. Has developed for several months a wound to the left buttock region. Following with wound clinic in [place] Dr. Harris. Seen on Sunday. Has had some debridement but not currently on antibiotics. Home care nursing for the first time came yesterday to assess. They have been trying to offload and do some bandaging. Significant difficulty with transfers and movement. Daughter visiting from [place] but leaving in a day or 2. They have been trying to work with Dr. Guzman's office to determine if placement can be obtained for additional assistance prickly with his offloading to help wound healing. Wanted another opinion of the wound as well so came here. Patient provides history as well as family at bedside. Patient was present at time of unexpected computer downtime. PAST MEDICAL HISTORY: As noted above MEDICATIONS: Reviewed home medications not currently on MS medications by his report SOCIAL HISTORY: PHYSICAL EXAM: GENERAL: alert and oriented in no acute distress on stretcher Head: normocephalic and atraumatic EYES: No injection, discharge or icterus. EOMI. NECK: Trachea midline. Supple. ENT: Mucous membranes pink and moist. LUNGS: Airway patent. No retractions. Breath sounds clear with good air entry bilaterally. HEART: Regular rate and rhythm. No chest wall tenderness ABDOMEN: Soft and non-tender, without guarding or rebound. SKIN: Acyanotic, warm, dry wound except as noted on the buttock below EXTREMITIES: Without swelling, tenderness or deformity with the left buttock and approximately 10 x 6 cm area stage III decubitus ulcer appears into the soft tissue and muscular layer. No exposed bone. No significant bleeding. NEUROLOGICAL: No aphasia. No facial droop or slurred speech. Diminished strength of the lower extremities below the waist. EK bpm sinus rhythm first-degree AV block. No PVC. Right bundle branch block. No acute ST segment elevation with some nonspecific T wave changes. QTc 490. CONTINUOUS CARDIAC MONITORING: was ordered and showed a heart rate of70s bpm in normal sinus rhythm Patient's laboratory studies and imaging reviewed. Differential includes Foreign body, fracture, dislocation, joint compromise, infection, soft tissue injury, tendon injury, vascular compromise, compartment syndrome, as well as other pathologies. IMPRESSION/MEDICAL DECISION MAKING: Patient vitals reassuring. Lower suspicion for sepsis. Blood cultures lactate and basic labs will be obtained. Surface wound culture from the wound on the left buttock was obtained. Will try to offload as possible. Sounds as if they need additional help with his care and wish for placement. Patient did arrive during unplanned for computer downtime which did slow results to some degree. No significant leukocytosis or signs of electrolyte abnormality or new renal dysfunction. Cultures are pending. Again afebrile here and does not appear septic. Will cover with ceftriaxone pending further culture results and bring in for additional wound care and likely placement per family request. Hospitalist team contacted. DIAGNOSIS: Left buttock ulcer/wound, MS, ambulatory dysfunction DISPOSITION: Hospitalist will evaluate Patient was agreeable with this plan. Past Med/Surg History Medical History Prediabetes Hypercalcemia Insomnia Fall Muscle stiffness Lyme disease Hypertension Aneurysm of vertebral artery History of urinary self-catheterization Idiopathic insomnia Impotence, organic Glaucoma Hearing difficulty Multiple sclerosis (~1991) Vision problem Depression Adrenal adenoma Neurogenic bladder Peripheral neuropathy Surgical History Status post insertion of intrathecal baclofen pump 2008 and removal 2009 was about a year later. pump was making him too weak. then had csf leaking and that had to be repaired History of repair of rotator cuff History of back surgery Family History Mother Myocardial infarction Cardiac disorder Sister Multiple sclerosis COPD (chronic obstructive pulmonary disease) Father Leukemia Denies family history of Ovarian cancer Prostate cancer Breast cancer Colorectal cancer Social History Smoking Status: Former smoker Tobacco Type: Cigarettes Age Started Using Tobacco: 17; Age Quit Using Tobacco: 31; packs per day: 1; Second Hand Exposure: No; Do You Dip or Chew Tobacco: No; Hx Alcohol Use: No Hx Substance Use: No Preferred Language: Slovak Communication Ability: Effective Visual Impairment: Partially Limited Hearing Ability: Use of Hearing Aid Geometry Professor Required: No Beliefs That Will Affect Care: None marital status: Current Living Situation: Spouse current occupational status: retired How many Children do You have: 1 Feels Safe at Home: Yes Childhood Exposure to Second-Hand Smoke: No Diet: regular Diet Comment: regular caffeine: Yes (Coffee x 1 cup per day.) during the past year weight has: remained stable Dental Care, Regularly: Yes Physical Activity Frequency: Does not Exercise Seatbelt Use: always Sunscreen Use: No Assistive Devices: Hospital Bed, Scooter/Electric Scooter (mechanical w/c) and Other (trapeze) Allergies Allergies Allergy/AdvReac Type Severity Reaction Status Date / Time No Known Allergies Allergy Verified 04/26/23 16:45 Home Meds Home Medications Medication Instructions Recorded Confirmed cholecalciferol (vitamin D3) 125 5,000 units PO DAILY 09/18/18 04/26/23 mcg (5,000 unit) tablet ascorbic acid (vitamin C) 500 mg 1,000 mg PO DAILY 11/21/18 04/26/23 tablet coenzyme Q10 100 mg capsule 100 mg PO DAILY 11/21/18 04/26/23 omega-3 acid ethyl esters 1 gram 1 cap PO BID 11/21/18 04/26/23 capsule polyethylene glycol 3350 17 17 g PO DAILY 03/10/19 04/26/23 gram/dose oral powder multivitamin with iron-mineral 1 tab PO DAILY 11/06/19 04/26/23 prevagen 1 tab PO DAILY 12/22/19 04/26/23 brimonidine 0.2 %-timolol 0.5 % 1 drp ophthalmic (eye) BID 03/17/21 04/26/23 eye drops (Combigan) magnesium oxide 400 mg (241.3 mg 400 mg PO DAILY 05/02/22 04/26/23 magnesium) tablet calcium carbonate 500 mg calcium 500 mg PO DAILY 04/26/23 04/26/23 (1,250 mg) tablet Previous Rx's Medication Instructions Recorded oxybutynin chloride 5 mg tablet 5 mg PO BID #180 tabs 08/16/22 ropinirole 2 mg tablet 2 mg PO TID #270 tabs 11/07/22 zolpidem 10 mg tablet 10 mg PO HS #35 tabs 02/07/23 citalopram 40 mg tablet 40 mg PO DAILY #90 tabs 03/13/23 losartan 50 mg tablet 50 mg PO BID #90 tabs 04/02/23 hydrocodone 5 mg-acetaminophen 325 1 tab PO Q6H PRN pain #30 tabs 04/25/23 mg tablet Results & Data (ED) Vital Signs Vital Signs - 24 hr 04/26/23 16:45 Pulse Rate [Apical] 79 Respiratory Rate 18 Respiratory Effort / Characteristics Non-Labored Spontaneous Respiratory Depth Normal Respiratory Pattern Regular Blood Pressure [Right Arm] 145/93 H Blood Pressure Mean [Right Arm] 110 Blood Pressure Position [Right Arm] Lying Pulse Oximetry 97 Oxygen Delivery Method Room Air Laboratory Data 04/26/23 15:30 04/26/23 15:03 Lab Results 04/26/23 04/26/23 04/26/23 Range/Units 15:03 15:30 16:13 WBC 9.35 (4.8-10.8) K/ul RBC 4.08 L (4.70-6.10) M/uL Hgb 12.8 L (14.0-18.0) g/dl Hct 39.0 L (42.0-52.0) % MCV 95.6 (80.0-100.0) fL MCH 31.4 (25.0-34.0) pg MCHC 32.8 (32.0-36.0) g/dL RDW Std Deviation 45.5 (36.4-46.3) fL RDW Coeff of Gracy 13.1 (11.5-14.5) % Plt Count 283 (130-400) K/uL MPV 9.4 (9.4-12.4) fL Sodium 136 (136-145) mmol/L Potassium 4.2 (3.5-5.1) mmol/L Chloride 103 (98-107) mmol/L Carbon Dioxide 26 (21-32) mmol/L Anion Gap 7 (3-11) BUN 24 H (6-23) mg/dl Creatinine 1.11 (0.6-1.4) mg/dl Est Cr Clr Drug Dosing Not Reportable Est GFR ( Amer) 74.4 ml/min Est GFR (Non-Af Amer) 64.2 ml/min BUN/Creatinine Ratio 21.6 H (10-20) Glucose 119 H (70-99(Fasting)) mg/dl Lactate 0.9 (0.4-2.0) mmol/L Calcium 9.3 (8.6-10.3) mg/dl Total Bilirubin 1.0 (0.2-1.0) mg/dl AST 18 (13-39) U/L ALT 13 (7-52) U/L Alkaline Phosphatase 71 (34-104) U/L Total Protein 6.6 (6.0-8.3) gm/dl Albumin 3.5 (3.4-5.0) gm/dl Globulin 3.1 (2.5-4.0) gm/dl Albumin/Globulin Ratio 1.1 (0.9-2) Administered Medications Discontinued Medications Ceftriaxone Sodium (Rocephin) 2,000 mg in 50 mls @ 100 mls/hr IV NOW STA Stop: 04/26/23 18:31 Last Admin: 04/26/23 18:17 Dose: 100 mls/hr Documented By: SANDY Discharge Plan Visit Data Chief Complaint: Wound Stated Complaint: WOUND ED Provider: Alan Langford Discharge Problem: Multiple sclerosis, Ambulatory dysfunction, Wound of buttock Patient Disposition: Being Evaluated by Hospitalist Forms Stand Alone Forms: My [facility] Prescriptions Prescriptions: No Action zolpidem 10 mg tablet 10 mg PO HS Qty: 35 5RF Rx Instructions: 1-1.25 tablets as needed for sleep citalopram 40 mg tablet 40 mg PO DAILY Qty: 90 1RF losartan 50 mg tablet 50 mg PO BID Qty: 90 1RF hydrocodone-acetaminophen 5-325 mg tablet 1 tab PO Q6H PRN (Reason: pain) Qty: 30 0RF Rx Instructions: PER PT'S SPOUSE, "HAVE NOT STARTED TAKING YET". prevagen 1 tab PO DAILY oxybutynin chloride 5 mg tablet 5 mg PO BID Qty: 180 1RF brimonidine-timolol [Combigan] 0.2-0.5 % drops 1 drp ophthalmic (eye) BID ropinirole 2 mg tablet 2 mg PO TID Qty: 270 1RF cholecalciferol (vitamin D3) 5,000 unit tablet 5,000 units PO DAILY ascorbic acid (vitamin C) 500 mg tablet 1,000 mg PO DAILY coenzyme Q10 100 mg capsule 100 mg PO DAILY omega-3 acid ethyl esters 1 gram capsule 1 cap PO BID polyethylene glycol 3350 17 gram/dose powder 17 g PO DAILY magnesium oxide 400 mg (241.3 mg magnesium) tablet 400 mg PO DAILY multivitamin with iron-mineral Tablet 1 tab PO DAILY calcium carbonate [Calcium 500] 500 mg calcium (1,250 mg) Tablet 500 mg PO DAILY Referrals Referrals: Nguyen Guzman DO [Primary Care Provider] - Discharge Problem: Wound of buttock Qualifiers: Encounter type: initial encounter Laterality: left Qualified Code(s): S31.829A - Unspecified open wound of left buttock, initial encounter
[2023-04-26 17:04] LABS: Hemoglobin 12.8 g/dl (14.0-18.0); Mean Corpuscular Hemoglobin 31.4 pg (25.0-34.0); Mean Corpuscular Hgb Conc 32.8 g/dL (32.0-36.0); Mean Corpuscular Volume 95.6 fL (80.0-100.0); Mean Platelet Volume 9.4 fL (9.4-12.4); Platelet Count 283 K/uL (130-400); RDW Coefficient of Variation 13.1 % (11.5-14.5); RDW Standard Deviation 45.5 fL (36.4-46.3); Red Blood Count 4.08 M/uL (4.70-6.10); White Blood Count 9.35 K/ul (4.8-10.8)
[2023-04-26 17:20] LABS: Alanine Aminotransferase 13 U/L (7-52); Albumin Globulin Ratio 1.1 (0.9-2); Albumin Level 3.5 gm/dl (3.4-5.0); Alkaline Phosphatase 71 U/L (34-104); Anion Gap 7 (3-11); Aspartate Aminotransferase 18 U/L (13-39); BUN Creatinine Ratio 21.6 (10-20); Blood Urea Nitrogen 24 mg/dl (6-23); Calcium 9.3 mg/dl (8.6-10.3); Carbon Dioxide 26 mmol/L (21-32); Chloride 103 mmol/L (98-107); Est GFR (African American) 74.4 ml/min; Est GFR (Non-African American) 64.2 ml/min; Globulin 3.1 gm/dl (2.5-4.0); Glucose 119 mg/dl (70-99(Fasting)); Potassium 4.2 mmol/L (3.5-5.1); Sodium 136 mmol/L (136-145); Total Protein 6.6 gm/dl (6.0-8.3)
[2023-04-26] MEDS: cefTRIAXone SODIUM 2,000 MG/50 ML BAG IV STA (18:17)
--- NOTE | 2023-04-26 19:06 | History & Physical Report ---
Date of Service April 26, 2023 Assessment & Plan (1) Wound of buttock: (2) Ambulatory dysfunction: (3) Prediabetes: (4) Depression: (5) Multiple sclerosis: (6) Neurogenic bladder: (7) History of urinary self-catheterization: (8) Hypertension: (9) Peripheral neuropathy: Plan 77-year-old gentleman history of multiple sclerosis, hypertension, and urinary retention with a history of self cathing presenting with progressively worsening left buttock wound that has been present since December 2022. Left Buttock Wound: - Blood and wound culture pending, low suspicion for infection or sepsis, defer further antibiotic treatment - Wound care nurse consulted - PT/OT eval and treat - Case management consulted for dispo planning MS, neurogenic bladder, h/o self-cathing: - Posey catheter placed - Continue home oxybutynin - PT/OT eval and treat - Case management consulted for dispo planning Dystonia: - Continue home ropinirole Depression: - Continue home Celexa HTN: - Continue home Losartan Dispo: admit to med-surg FEN/GI: HH diet, Posey placed VTE ppx: Lovenox DNR/DNI History of Present Illness Primary Care Provider: Nguyen Guzman, 77-year-old gentleman history of multiple sclerosis, hypertension, and urinary retention with a history of self cathing presenting with progressively worsening left buttock wound that has been present since December 2022. Patient has been unable to stand or ambulate for more than a decade, notes that he would occasionally get small sores that would self-resolve, this is the first time he has had a wound of this severity. 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 Patient follows with Dr. Harris in [place] for wound care. Patient was recommended to be seen in ED by PCP as family wanted a second opinion as well as for assistance with placement. Patient endorses chronic cough but denies persistent fevers or shortness of breath. ED Course: Labs largely unremarkable, UA pending Blood and wound cultures pending Allergies Allergy/AdvReac Type Severity Reaction Status Date / Time No Known Allergies Allergy Verified 04/26/23 16:45 Home Medications Medication Instructions Recorded Confirmed Type cholecalciferol (vitamin D3) 125 5,000 units PO DAILY 09/18/18 04/26/23 History mcg (5,000 unit) tablet ascorbic acid (vitamin C) 500 mg 1,000 mg PO DAILY 11/21/18 04/26/23 History tablet coenzyme Q10 100 mg capsule 100 mg PO DAILY 11/21/18 04/26/23 History omega-3 acid ethyl esters 1 gram 1 cap PO BID 11/21/18 04/26/23 History capsule polyethylene glycol 3350 17 17 g PO DAILY 03/10/19 04/26/23 History gram/dose oral powder multivitamin with iron-mineral 1 tab PO DAILY 11/06/19 04/26/23 History prevagen 1 tab PO DAILY 12/22/19 04/26/23 History brimonidine 0.2 %-timolol 0.5 % 1 drp ophthalmic (eye) BID 03/17/21 04/26/23 History eye drops (Combigan) magnesium oxide 400 mg (241.3 mg 400 mg PO DAILY 05/02/22 04/26/23 History magnesium) tablet oxybutynin chloride 5 mg tablet 5 mg PO BID #180 tabs 08/16/22 04/26/23 Rx ropinirole 2 mg tablet 2 mg PO TID #270 tabs 11/07/22 04/26/23 Rx zolpidem 10 mg tablet 10 mg PO HS #35 tabs 02/07/23 04/26/23 Rx citalopram 40 mg tablet 40 mg PO DAILY #90 tabs 03/13/23 04/26/23 Rx losartan 50 mg tablet 50 mg PO BID #90 tabs 04/02/23 04/26/23 Rx hydrocodone 5 mg-acetaminophen 325 1 tab PO Q6H PRN pain #30 tabs 04/25/23 04/26/23 Rx mg tablet calcium carbonate 500 mg calcium 500 mg PO DAILY 04/26/23 04/26/23 History (1,250 mg) tablet Past Med/Surg History Medical History Prediabetes Hypercalcemia Insomnia Fall Muscle stiffness Lyme disease Hypertension Aneurysm of vertebral artery History of urinary self-catheterization Idiopathic insomnia Impotence, organic Glaucoma Hearing difficulty Multiple sclerosis (~1991) Vision problem Depression Adrenal adenoma Neurogenic bladder Peripheral neuropathy Surgical History Status post insertion of intrathecal baclofen pump 2008 and removal 2009 was about a year later. pump was making him too weak. then had csf leaking and that had to be repaired History of repair of rotator cuff History of back surgery Family History Mother Myocardial infarction Cardiac disorder Sister Multiple sclerosis COPD (chronic obstructive pulmonary disease) Father Leukemia Denies family history of Ovarian cancer Prostate cancer Breast cancer Colorectal cancer Social History Smoking Status: Former smoker Tobacco Type: Cigarettes Age Started Using Tobacco: 17; Age Quit Using Tobacco: 31; packs per day: 1; Second Hand Exposure: No; Do You Dip or Chew Tobacco: No; Hx Alcohol Use: No Hx Substance Use: No Preferred Language: Haitian Communication Ability: Effective Visual Impairment: Partially Limited Hearing Ability: Use of Hearing Aid Bench Carpenter Required: No Beliefs That Will Affect Care: None marital status: Current Living Situation: Spouse current occupational status: retired How many Children do You have: 1 Feels Safe at Home: Yes Childhood Exposure to Second-Hand Smoke: No Diet: regular Diet Comment: regular caffeine: Yes (Coffee x 1 cup per day.) during the past year weight has: remained stable Dental Care, Regularly: Yes Physical Activity Frequency: Does not Exercise Seatbelt Use: always Sunscreen Use: No Assistive Devices: Hospital Bed, Scooter/Electric Scooter (mechanical w/c) and Other (trapeze) Review of Systems Review of Systems: as per HPI Physical Exam Physical Exam: General: Alert and oriented. No acute distress Cardiac: Regular rate and rhythm, no murmurs appreciated Respiratory: Lungs clear to auscultation bilaterally, No increased work of breathing Abdominal: Non-tender, non-distended. MSK: 5/5 UE strength on grasp/elbow flexion, 1/5 strength on hip flexion, plantar- and dorsiflexion Extremities: No lower extremity edema, calves non-tender bilaterally Skin: Large decubitus ulcer located on inferior aspect of left buttock, roughly 1 inch deep without purulent drainage, no bone exposure Results & Data Results & Data Vital Signs (Past 12 Hours) Vital Signs Pulse Resp BP Pulse Ox O2 Del Method 04/26/23 16:45 79 18 145/93 H 97 Room Air Code Status & VTE Plan Code Status CODE STATUS-DNR. Personally discussed with the patient at the bedside with his and his daughter and the patient himself Supervising Physician Co-Signing Physician Notes I have personally seen, evaluated and examined the patient. I have also personally discussed the management of the patient with the resident physician/SIRIA and I agree with the exam findings documented in the history and physical examination and the documented assessment and plan unless otherwise stated below. Brief Exam: In general this is a very pleasant 77-year-old male who is quite debilitated at baseline he can partially scoot himself into a wheelchair. However he has almost 0 ability to use his lower extremities. In addition he has ruptured by bicep tendons bilaterally. The patient has a chronic wound in his left ischial region. Has been doctoring with wound clinic at [facility]. Does not appear to be actively infected. Due to the patient's debility the patient's unable to care for him at home. Therefore was brought to the ER for possible placement. They are requesting wound to heal because they live in the apartment at [facility]. Case management has seen the patient and are working on placement but however they do not have a skilled bed available at this time. We are admitting the patient for placement and for wound care after PT and OT. HEENT: Normocephalic atraumatic. Heart: Regular rate and rhythm no significant murmur. Lungs: Diminished due to poor inspiratory effort. Abdomen: Soft nontender positive bowel sounds Extremities: Lower extremities partially contracted. Weakness of the lower extremities as discussed above is functional paraplegia. Which is chronic. Neurologically: He is alert and oriented. Left ischial wound inspected with the resident physician and family present. Approximately 2 inches deep. No active purulent discharge no surrounding erythema. Will consult wound care. Plan: As described above. Please refer to orders for further planning. Resident Activity Tracking Resident Involvement: Resident Care Provided Care Provided: Adult Hospital Medicine (1) Wound of buttock Encounter type: initial encounter Laterality: left Qualified Code(s): S31.829A - Unspecified open wound of left buttock, initial encounter
--- NOTE | 2023-04-26 19:39 | Billing Data ---
Date of Service April 26, 2023 Coding Level of Care Code 01322 INT INP/OBS CARE
[2023-04-26 20:11] LABS: Appearance Urine Clear (Clear); Bacteria Urine Automated 3+ (Negative); Bilirubin Urine Negative (Negative); Blood Urine Trace (Negative); Color Urine Dark Yellow; Epithelial Cell Urine Auto 0-5 /lpf (0-5); Glucose Urine UA Negative (Negative); Ketones Urine Trace (Negative); Leukocyte Esterase Urine 2+ (Negative); Nitrite Urine Positive (Negative); Protein Urine Negative (Negative); RBC Urine Automated 0-4 /hpf (0-4); Specific Gravity Urine 1.021 (1.000-1.030); Urobilinogen Urine Negative (Negative); WBC Urine Automated >30 /hpf (0-5)
[2023-04-26] MEDS ORDERED: ACETAMINOPHEN 325 MG TAB PO PRN (21:59)
[2023-04-26] MEDS ORDERED: POLYETHYLENE (MIRALAX) 17 GM PACK PO PRN (21:59)
[2023-04-26] MEDS ORDERED: MELATONIN 3 MG TAB PO PRN (21:59)
[2023-04-26] MEDS: oxyBUTYnin chloride 5 MG TAB PO SCH (22:57)
[2023-04-26] MEDS: rOPINIRole HCL 2 MG TABLET PO SCH (22:57)
[2023-04-26] MEDS: LOSARTAN POTASSIUM 50 MG TAB PO SCH (22:57)
[2023-04-26] MEDS: ZOLPIDEM TARTRATE 10 MG TAB PO SCH (22:59)
[2023-04-27] MEDS ORDERED: NON-FORMULARY MEDICATION (Coenzyme Q10 100 mg capsule) PO SCH (09:00)
[2023-04-27] MEDS: MAGNESIUM OXIDE 400 MG TAB PO SCH (09:25)
[2023-04-27] MEDS: CALCIUM CARBONATE 1250MG TAB PO SCH (09:25)
[2023-04-27] MEDS: OMEGA-3 (PURIFIED FISH OIL) 1 GM CAP PO SCH (09:25)
[2023-04-27] MEDS: MULTIVITAMIN CHEWABLE TAB PO SCH (09:25)
[2023-04-27] MEDS: ASCORBIC ACID 500 MG TAB PO SCH (09:26)
[2023-04-27] MEDS: CHOLECALCIFEROL 125 MCG (5,000 UNITS) TAB PO SCH (09:26)
[2023-04-27] MEDS: CITALOPRAM 40 MG TAB PO SCH (09:26)
[2023-04-27] MEDS: BRIMONIDINE TARTRATE 0.2% 5ML OPB SCH (09:26)
[2023-04-27] MEDS: TIMOLOL MALEATE 0.5% OP SOLN 5 ML BTL OPB SCH (09:27)
[2023-04-27] MEDS: ENOXAPARIN INJ 40 MG/0.4 ML SYR SQ SCH (09:27)
[2023-04-27] MEDS: POLYETHYLENE (MIRALAX) 17 GM PACK PO SCH (09:35)
[2023-04-27] MEDS: HYDROCODONE/ACETAMOPHEN 5/325MG TAB PO PRN (11:52)
--- NOTE | 2023-04-27 12:01 | Electrocardiogram Report ---
Test Reason : Blood Pressure : / mmHG Vent. Rate : 072 BPM Atrial Rate : 072 BPM P-R Int : 212 ms QRS Dur : 132 ms QT Int : 448 ms P-R-T Axes : 043 088 046 degrees QTc Int : 490 ms Sinus rhythm with 1st degree A-V block Right bundle branch block Abnormal ECG When compared with ECG of 22-MAR-2023 15:57, Nonspecific T wave abnormality no longer evident in Anterior leads Confirmed by Rocael Roldan ([id number]) on 04/27/2023 12:00:47 PM Referred By: REFERRED SELF Confirmed By:Niko Roldan
--- NOTE | 2023-04-27 12:08 | Electrocardiogram Report ---
Test Reason : Blood Pressure : / mmHG Vent. Rate : 082 BPM Atrial Rate : 082 BPM P-R Int : 238 ms QRS Dur : 118 ms QT Int : 446 ms P-R-T Axes : 042 098 025 degrees QTc Int : 521 ms Sinus rhythm with 1st degree A-V block Right bundle branch block Abnormal ECG When compared with ECG of 26-APR-2023 14:38, (unconfirmed) No significant change was found Confirmed by Rocael Roldan ([id number]) on 04/27/2023 12:08:17 PM Referred By: REFERRED SELF Confirmed By:Niko Roldan
--- NOTE | 2023-04-27 12:12 | XRay Report ---
XR chest 1V portable HISTORY: cough COMPARISON: Chest 03/22/2023. FINDINGS: No pneumothorax. No pleural effusions. No focal lung consolidations to suggest a pneumonia. No evidence for pulmonary edema. The cardiac silhouette is normal in size. There is a large hiatus h ernia again noted. This has slightly increased in size. Calcified granuloma within the left midlung z one, unchanged. Otherwise, lungs are clear. Degenerative changes within the shoulders. IMPRESSION: 1. No focal lung consolidations to suggest a pneumonia. 2. Large hiatus hernia again noted. This has slightly increased in size. ACT 112: Negative or not required by law. Electronically signed by: Chilo Comer M.D. 04/27/2023 12:10 PM
[2023-04-27] MEDS: PIPER/TAZO 4.5g in D5W MINI-B 100 ML IV ONE (12:50)
[2023-04-27] MEDS: NORTRIPTYLINE HCL 10 MG CAP PO SCH (12:50)
--- NOTE | 2023-04-27 13:01 | Hospitalist Progress Note ---
Date of Service April 27, 2023 Assessment & Plan (1) Wound of buttock: Plan: Stage III pressure ulcer of the left buttock which is probably infected. Wound consultation requested. Continue Zosyn, day 1. (2) Ambulatory dysfunction: Plan: Supportive care. He is nonambulatory at baseline (3) Multiple sclerosis: Plan: Supportive care. He is nonambulatory at baseline. (4) Neurogenic bladder: Plan: Posey catheter has been placed in the ED. He normally self catheterizes at home. There may be underlying urinary tract infection. Urine cultures and blood cultures are pending. (5) Hypertension: Plan: Stable. Continue current medical manage (6) Peripheral neuropathy: Plan: Nortriptyline has been started. Will gauge response Plan To be determined. Admission and Anticipated Discharge Date Admission Date: April 26, 2023 Subjective Alert and oriented. Primary complaint is the peripheral neuropathy pain. Will add nortriptyline and observe response. He is now on Zosyn, day 1, for suspected infection of the sacral decubitus. Review of Systems 2 Review of Systems: Constitutional-no fever or chills ENT-no blurred vision, no double vision, no epistaxis, no sore throat Respiratory-nonproductive cough. No wheezing. No hemoptysis. Denies shortness of breath at rest Cardiac-no palpitations, no chest pain, no syncope GI-no nausea, vomiting, diarrhea, melena, hematochezia -no urinary retention, no dysuria, no hematuria Musculoskeletal-no joint pain, no muscle tenderness Skin-stage III decubitus ulcer left buttock which is chronic Neuro-generalized weakness due to underlying MS. he is nonambulatory Psych-depressed affect Physical Exam 2 Physical Exam: General-alert and oriented x3, no fever, no chills HEENT-head atraumatic and normocephalic, pupils equal and reactive to light, extraocular muscles intact Neck-no lymphadenopathy or thyromegaly, trachea midline Chest-clear to auscultation anteriorly. No rales, wheezing or rhonchi Cardiac-regular rate and rhythm, normal S1 and S2 Abdomen-normal bowel sounds, nontender, no hepatosplenomegaly Skinstage III decubitus ulcer left buttock Extremities-chronic appearing edema bilateral lower extremities below the knees Neuro-cranial nerves II through XII intact, chronic generalized weakness with inability to ambulate, no focal deficits Psych-depressed affect Results & Data Results & Data Vital Signs (Past 12 Hours) Vital Signs Temp Pulse Resp BP Pulse Ox O2 Del Method 04/27/23 11:30 36.8 C 80 18 107/69 95 Room Air 04/27/23 08:21 37 C 86 12 127/77 96 Room Air 04/27/23 08:00 Room Air Laboratory Results 04/26/23 15:30 04/26/23 15:03 PG Care Time/CCT Total # of Minutes Spent Total Time Spent with Patient: Total time spent is greater than 50% in coordination of care (as documented) at patient's floor/unit and/or counseling patient: Coding Level of Care Code 13636 SUB INP/OBS CARE 3/50MIN Diagnoses Wound of buttock S31.829A Encounter type: initial encounter Laterality: left Ambulatory dysfunction R26.2 Multiple sclerosis G35 Neurogenic bladder N31.9 Hypertension I10 Peripheral neuropathy G62.9 (1) Wound of buttock Encounter type: initial encounter Laterality: left Qualified Code(s): S 31.829A - Unspecified open wound of left buttock, initial encounter
[2023-04-27] MEDS: guaiFENesin SUGAR FREE 100 MG/5 ML UDC PO PRN (13:28)
[2023-04-27] MEDS ORDERED: MICONAZOLE NITRATE POWDER 85 GM EXT PRN (14:17)
[2023-04-27] MEDS ORDERED: Nursing to Pharmacy Communication SCH (15:30)
[2023-04-27] MEDS: COLLAGENASE OINT 30 GM TUBE EXT SCH (16:38)
[2023-04-27] MEDS ORDERED: MoRPHine SULFATE 2 MG/ML CARP IV PRN (16:50)
[2023-04-27] MEDS: PIPERACILLIN/TAZOBACTAM 4.5 GM in DEXTROSE 5% MINI-B 100 ML IV SCH (17:55)
[2023-04-28] MEDS: oxyCODONE HCL IR 5 MG TAB (IMMEDIATE RELEASE) PO PRN (11:23)
--- NOTE | 2023-04-28 11:23 | Hospitalist Progress Note ---
Date of Service April 28, 2023 Assessment & Plan (1) Wound of buttock: Plan: Stage III pressure ulcer of the left buttock which is probably infected. Wound consultation requested. Continue Zosyn, day 2. (2) Ambulatory dysfunction: Plan: Supportive care. He is nonambulatory at baseline (3) Multiple sclerosis: Plan: Supportive care. He is nonambulatory at baseline. (4) Neurogenic bladder: Plan: Posey catheter has been placed in the ED. He normally self catheterizes at home. Blood cultures are negative. Unfortunately, urine culture was not obtained on admission (5) Hypertension: Plan: Stable. Continue current medical manage (6) Peripheral neuropathy: Plan: Nortriptyline has been started. Will gauge response Plan Eventual discharge to [facility] this coming week Admission and Anticipated Discharge Date Admission Date: April 26, 2023 Subjective Alert and oriented. No complaints. Nortriptyline was started yesterday, April 26 and has not had much of an effect effect yet on his peripheral neuropathy. Will continue for another day or 2 and gauge response. Zosyn day 2. Appreciate wound care nurse efforts. Case management indicates that he will be discharged to [facility] sometime this coming week Review of Systems 2 Review of Systems: Constitutional-no fever or chills ENT-no blurred vision, no double vision, no epistaxis, no sore throat Respiratory-nonproductive cough. No wheezing. No hemoptysis. Denies shortness of breath at rest Cardiac-no palpitations, no chest pain, no syncope GI-no nausea, vomiting, diarrhea, melena, hematochezia -no urinary retention, no dysuria, no hematuria Musculoskeletal-no joint pain, no muscle tenderness Skin-stage III decubitus ulcer left buttock which is chronic Neuro-generalized weakness due to underlying MS. he is nonambulatory Psych-depressed affect Physical Exam 2 Physical Exam: General-alert and oriented x3, no fever, no chills HEENT-head atraumatic and normocephalic, pupils equal and reactive to light, extraocular muscles intact Neck-no lymphadenopathy or thyromegaly, trachea midline Chest-clear to auscultation anteriorly. No rales, wheezing or rhonchi Cardiac-regular rate and rhythm, normal S1 and S2 Abdomen-normal bowel sounds, nontender, no hepatosplenomegaly Skinstage III decubitus ulcer left buttock Extremities-chronic appearing edema bilateral lower extremities below the knees Neuro-cranial nerves II through XII intact, chronic generalized weakness with inability to ambulate, no focal deficits Psych-depressed affect Results & Data Results & Data Vital Signs (Past 12 Hours) Vital Signs Temp Pulse Resp BP Pulse Ox O2 Del Method 04/28/23 08:15 Room Air 04/28/23 07:24 36.4 C L 84 18 165/89 H 97 Room Air Laboratory Results 04/26/23 15:30 04/26/23 15:03 PG Care Time/CCT Total # of Minutes Spent Total Time Spent with Patient: Total time spent is greater than 50% in coordination of care (as documented) at patient's floor/unit and/or counseling patient: Coding Level of Care Code 94158 SUB INP/OBS CARE 3/50MIN Diagnoses Wound of buttock S31.829A Encounter type: initial encounter Laterality: left Ambulatory dysfunction R26.2 Multiple sclerosis G35 Neurogenic bladder N31.9 Hypertension I10 Peripheral neuropathy G62.9 (1) Wound of buttock Encounter type: initial encounter Laterality: left Qualified Code(s): S 31.829A - Unspecified open wound of left buttock, initial encounter
--- NOTE | 2023-04-29 11:11 | Hospitalist Progress Note ---
Date of Service April 29, 2023 Assessment & Plan (1) Wound of buttock: Plan: Stage III pressure ulcer of the left buttock which is probably infected. Wound care consultation appreciated. MRSA isolated. Zosyn switched to daptomycin, antibiotic day 3. Eventually he will be switched to an oral antibiotic that will cover MRSA, possibly Bactrim DS. (2) Ambulatory dysfunction: Plan: Supportive care. He is nonambulatory at baseline (3) Multiple sclerosis: Plan: Supportive care. He is nonambulatory at baseline. (4) Neurogenic bladder: Plan: Posey catheter has been placed in the ED. He normally self catheterizes at home. Blood cultures are negative. Unfortunately, urine culture was not obtained on admission (5) Hypertension: Plan: Stable. Continue current medical manage (6) Peripheral neuropathy: Plan: Nortriptyline was started April 26. Dosage uptitrated today, April 28. This replaces Celexa. Plan Eventual discharge to [facility] this coming week Admission and Anticipated Discharge Date Admission Date: April 26, 2023 Subjective Alert and oriented. No new problems. Culture from the left buttock wound is growing MRSA. Zosyn has been switched to daptomycin. No response yet to new dosing of nortriptyline which was started April 26. Dosage uptitrated today, April 28. This replaces Celexa. Eventual discharge to [facility] on oral antibiotic that will cover MRSA, possibly Bactrim DS. Review of Systems 2 Review of Systems: Constitutional-no fever or chills ENT-no blurred vision, no double vision, no epistaxis, no sore throat Respiratory-nonproductive cough. No wheezing. No hemoptysis. Denies shortness of breath at rest Cardiac-no palpitations, no chest pain, no syncope GI-no nausea, vomiting, diarrhea, melena, hematochezia -no urinary retention, no dysuria, no hematuria Musculoskeletal-no joint pain, no muscle tenderness Skin-stage III decubitus ulcer left buttock which is chronic Neuro-generalized weakness due to underlying MS. he is nonambulatory Psych-depressed affect Physical Exam 2 Physical Exam: General-alert and oriented x3, no fever, no chills HEENT-head atraumatic and normocephalic, pupils equal and reactive to light, extraocular muscles intact Neck-no lymphadenopathy or thyromegaly, trachea midline Chest-clear to auscultation anteriorly. No rales, wheezing or rhonchi Cardiac-regular rate and rhythm, normal S1 and S2 Abdomen-normal bowel sounds, nontender, no hepatosplenomegaly Skinstage III decubitus ulcer left buttock Extremities-chronic appearing edema bilateral lower extremities below the knees Neuro-cranial nerves II through XII intact, chronic generalized weakness with inability to ambulate, no focal deficits Psych-depressed affect Results & Data Results & Data Vital Signs (Past 12 Hours) Vital Signs Temp Pulse Resp BP BP Pulse Ox O2 Del Method 04/29/23 10:31 65 97/61 L 04/29/23 08:50 81 95/57 L 04/29/23 07:17 91/53 L 04/29/23 07:15 36.6 C 76 15 93/59 L 94 Room Air Laboratory Results 04/26/23 15:30 04/26/23 15:03 PG Care Time/CCT Total # of Minutes Spent Total Time Spent with Patient: Total time spent is greater than 50% in coordination of care (as documented) at patient's floor/unit and/or counseling patient: Coding Level of Care Code 70536 SUB INP/OBS CARE 3/50MIN Diagnoses Wound of buttock S31.829A Encounter type: initial encounter Laterality: left Ambulatory dysfunction R26.2 Multiple sclerosis G35 Neurogenic bladder N31.9 Hypertension I10 Peripheral neuropathy G62.9 (1) Wound of buttock Encounter type: initial encounter Laterality: left Qualified Code(s): S 31.829A - Unspecified open wound of left buttock, initial encounter
[2023-04-29] MEDS: DAPTOmycin 300 MG in SYRINGE 0 ML IV SCH (11:20)
[2023-04-29] MEDS: NORTRIPTYLINE HCL 10 MG CAP PO ONE (12:25)
[2023-04-29] MEDS: NORTRIPTYLINE HCL 10 MG CAP PO SCH (20:42)
[2023-04-30 06:47] LABS: Basophils # (auto) 0.05 K/uL (0.00-0.20); Basophils % (auto) 0.6 %; Eosinophils # (auto) 0.52 K/uL (0.00-0.50); Eosinophils % (auto) 6.6 %; Hematocrit (blood only) 40.1 % (42.0-52.0); Hemoglobin 13.1 g/dl (14.0-18.0); Immature Granulocytes # (auto) 0.03 K/uL (0.01-0.20); Immature Granulocytes % (auto) 0.4 %; Lymphocytes # (auto) 2.16 K/uL (1.20-3.40); Lymphocytes % (auto) 27.3 %; Mean Corpuscular Hgb Conc 32.7 g/dL (32.0-36.0); Mean Platelet Volume 9.1 fL (9.4-12.4); Monocytes # (auto) 0.93 K/uL (0.11-0.59); Monocytes % (auto) 11.7 %; Neutrophils # (auto) 4.23 K/uL (1.40-6.50); Neutrophils % (auto) 53.4 %; Platelet Count 292 K/uL (130-400); RDW Coefficient of Variation 13.3 % (11.5-14.5); RDW Standard Deviation 46.4 fL (36.4-46.3); Red Blood Count 4.22 M/uL (4.70-6.10); White Blood Count 7.92 K/ul (4.8-10.8)
[2023-04-30 07:13] LABS: BUN Creatinine Ratio 25.4 (10-20); Calcium 9.2 mg/dl (8.6-10.3); Creatinine Clr Calc Pharmacy 54.3 ml/min; Est GFR (African American) 69.1 ml/min; Est GFR (Non-African American) 59.6 ml/min; Potassium 4.3 mmol/L (3.5-5.1)
[2023-04-30] MEDS: bisacodyL 10 MG SUPP PR STA (10:33)
--- NOTE | 2023-04-30 14:09 | Discharge Summary ---
Discharge Summary Date of Service April 30, 2023 Notes For Next Care Provider Remove Posey catheter in 1-2 weeks and resume self catheterization 3-4x/day Check CBC, CMP, CK in 3 days and then in 10 days Medication Changes From Visit Added oxycodone 5mg po q6h prn, APAP 325mg po q6h prn pain Added Daptomycin 300mg IV q24h x 8 more days Admission HPI Per Admitting Provider 77-year-old gentleman history of multiple sclerosis, hypertension, and urinary retention with a history of self cathing presenting with progressively worsening left buttock wound that has been present since December 2022. Patient has been unable to stand or ambulate for more than a decade, notes that he would occasionally get small sores that would self-resolve, this is the first time he has had a wound of this severity. Patient and reside at [facility], do not receive any in home assistance currently, is primary acute care nurse practitioner. Patient follows with Dr. Harris in [place] for wound care. Patient was recommended to be seen in ED by PCP as family wanted a second opinion as well as for assistance with placement. Patient endorses chronic cough but denies per sistent fevers or shortness of breath. 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 Wound care consultation appreciated. MRSA and Strep intermedius isolated on wound cx, blood cs remain no growth. Initially on Zosyn which was then switched to daptomycin on 04/28 Unfortunately, the MRSA is resistant to tetracycline and Bactrim. Would avoid linezolid with Pamelor use. COuld use clinda but can have inducible resistance with MRSA and also high risk of C. diff infection. WIll continue IV Daptomycin for total of 10 days-last day of tx through 05/08/23. US-guided peripheral IV placed on 04/29 Chek CBC, CMP, CK in 3 days and then again one week later. Continue wound care, offloading pressure, Santyl to wound Pain control with APAP, oxycodone prn started Pamelor as well continue MVI, Vit C (2) Ambulatory dysfunction: Supportive care. He is nonambulatory at baseline [facility] needs rehab to get back to baseline (3) Multiple sclerosis: Supportive care. He is nonambulatory at baseline continue ropiniroloe (4) Neurogenic bladder: Posey catheter has been placed He normally self catheterizes at home UA was abnormal but unfortunately, urine culture was not obtained on admission - no fevers, blood cxs remain negative, no urinary symptoms did receive 3 days of IV Zosyn and now on Dapto which would cover for UTI anyway He requests to have Posey remain in place until he is better able to sit up to self cath-leave in for discharge to SNF and recommend removal in 1-2 weeks and resume self-cath at that time continue oxybutynin for spasms (5) Hypertension: Stable. Continue current medical management with losartan (6) Peripheral neuropathy: Nortriptyline was started April 26. Dosage uptitrated to 20mg po bid and seems to be helping His Celexa was discontinued due to interaction with Pamelor and want to avoid QT prolonging meds together if mood worsens off Celexa--> recommend resuming lower dose of Celexa and lowering dose of Pamelor Plan DVT proph-Lovenox Dispo-dc to [facility] today Discharge Exam Constitutional WD/WN, vitals as above Respiratory normal respiratory effort, lungs clear to auscultation Cardiovascular RRR, no murmur, no edema Gastrointestinal (Abdomen) normal bowel sounds, soft, nontender, no hepatosplenomegaly Updated Medication List Medication Instructions Recorded Confirmed Type cholecalciferol (vitamin D3) 125 5,000 units PO DAILY 09/18/18 04/26/23 History mcg (5,000 unit) tablet ascorbic acid (vitamin C) 500 mg 1,000 mg PO DAILY 11/21/18 04/26/23 History tablet coenzyme Q10 100 mg capsule 100 mg PO DAILY 11/21/18 04/26/23 History omega-3 acid ethyl esters 1 gram 1 cap PO BID 11/21/18 04/26/23 History capsule polyethylene glycol 3350 17 17 g PO DAILY 03/10/19 04/26/23 History gram/dose oral powder multivitamin with iron-mineral 1 tab PO DAILY 11/06/19 04/26/23 History prevagen 1 tab PO DAILY 12/22/19 04/26/23 History brimonidine 0.2 %-timolol 0.5 % 1 drp ophthalmic (eye) BID 03/17/21 04/26/23 History eye drops (Combigan) magnesium oxide 400 mg (241.3 mg 400 mg PO DAILY 05/02/22 04/26/23 History magnesium) tablet oxybutynin chloride 5 mg tablet 5 mg PO BID #180 tabs 08/16/22 04/26/23 Rx ropinirole 2 mg tablet 2 mg PO TID #270 tabs 11/07/22 04/26/23 Rx citalopram 40 mg tablet 40 mg PO DAILY #90 tabs 03/13/23 04/26/23 Rx losartan 50 mg tablet 50 mg PO BID #90 tabs 04/02/23 04/26/23 Rx hydrocodone 5 mg-acetaminophen 325 1 tab PO Q6H PRN pain #30 tabs 04/25/23 04/26/23 Rx mg tablet calcium carbonate 500 mg calcium 500 mg PO DAILY 04/26/23 04/26/23 History (1,250 mg) tablet acetaminophen 325 mg tablet 650 mg (2 x 325 mg) PO Q6H PRN 04/30/23 Rx pain #30 tabs collagenase clostridium histo. 250 1 applic EXT DAILY apply to sacral 04/30/23 Rx unit/gram topical ointment (Santyl) wound #30 grams miconazole nitrate 2 % topical 1 applic EXT PRN PRN to skin fold 04/30/23 Rx powder (Desenex) rash #85 grams nortriptyline 10 mg capsule 20 mg (2 x 10 mg) PO BID #120 caps 04/30/23 Rx oxycodone 5 mg tablet 5 mg PO Q6 PRN moderate-severe 04/30/23 Rx pain #12 tabs zolpidem 10 mg tablet 10 mg PO HS #3 tabs 04/30/23 Rx Hospital Stay Data Consultations 04/26/23 18:01 ED Decision to Admit Stat Pending Results Patient Have Any Pending Studies at Discharge: Yes (Final blood cultures-no growth to date) Discharge Instructions Given to Patient (Per Discharging Provider) Please continue IV Daptomycin for 8 more days for your wound infection. At your request, continue the Posey catheter until you feel you are better able to resume your usual self-catheterization in 1-2 weeks. Continue wound care for your buttocks wound. You were started on nortriptyline for your peripheral neuropathy and your Celexa was discontinued by the previous hospitalist. If you feel you are having worsening issues with your mood, you should consider resuming the Celexa at perhaps a lower dose. Total Time Total Time Spent Total Time Spent (In Minutes): 35 min Coding Level of Care Code 27053 INP/OBS DISCH >30 MIN Diagnoses Wound of buttock S31.829A Encounter type: initial encounter Laterality: left Ambulatory dysfunction R26.2 Multiple sclerosis G35 Neurogenic bladder N31.9 Hypertension I10 Peripheral neuropathy G62.9
== END 2023-04-30 14:54 | DRG 594 ==
LOC: ED 16:19 → 3N 19:03 → SUATTDRO 19:03 → 3N 22:09

== ENCOUNTER 2023-05-26 18:40 | Inpatient (IN) ==
--- NOTE | 2023-05-26 19:13 | XRay Report ---
SINGLE VIEW CHEST CLINICAL HISTORY: Generalized weakness. Fever. FINDINGS: 2 AP, portable, upright chest radiographs compared to study dated 04/27/2023. There is a lar ge hiatal hernia. The heart is mildly enlarged noting atherosclerotic calcification of the thoracic a eugene. The pulmonary vasculature is noncongested. Chronic interstitial thickening is similar to previo us. A calcified granuloma is again seen in the left lower lung. There is bibasilar scarring/atelectas is. No airspace consolidation or large pleural effusion is identified. No pneumothorax is seen. The s keletal structures are osteopenic. The bony thorax is grossly intact. Arthritic change is noted in th e shoulders and spine. IMPRESSION: 1. Cardiomegaly with no active disease in the chest. 2. Large hiatal hernia. ACT 112: Negative or not required by law. Electronically signed by: Ortiz Whyte M.D. 05/26/2023 7:11 PM
--- NOTE | 2023-05-26 19:13 | Emergency Department Note ---
Impression & Plan Acute UTI, Weakness ED Provider Note Provider: Alan Langford MD DATE OF SERVICE: 05/26/2023 CHIEF COMPLAINT: Fever, weakness/confusion HISTORY OF PRESENT ILLNESS: Patient is a 77-year-old gentleman history of MS unfortunately with resultant Posey catheter at this time as well as a wound on the left buttock related to mobility issues presenting here from [facility] where he was discharged to after admission in April. states yesterday he seemed maybe little bit warm. Overnight around 3 in the morning she said that he fell to the ground out of bed. EMS did not report this. EMS did report the patient had a fever this afternoon and was not himself and that he gave him some Tylenol just prior to sending him here and changes Posey catheter. Patient is little more awake according to EMS upon arrival. Patient has some hearing issues will answer some questions but not a great historian seems quite fatigued. No evidence of significant trauma. Wound VAC appears in place on the left buttock and seems to be holding pressure. No pain reported. Denies nausea or vomiting. PAST MEDICAL HISTORY: As noted above MEDICATIONS: Reviewed home medications not currently on antibiotics SOCIAL HISTORY: , currently residing at [facility] PHYSICAL EXAM: GENERAL: alert and oriented in no acute distress on stretcher, somewhat hard of hearing Head: normocephalic and atraumatic EYES: No injection, discharge or icterus. PERRL, EOMI. NECK: Trachea midline. Supple. ENT: Mucous membranes pink and moist. LUNGS: Airway patent. No retractions. Breath sounds clear HEART: Regular rate and rhythm. No chest wall tenderness ABDOMEN: Soft and non-tender, without guarding or rebound. Posey catheter in place with a slight amount of laceration at the tip of the glans of the penis without significant bleeding noted. BACK: No midline tenderness, No bilateral flank tenderness. There is an approximately 3 x 16 cm area of wound VAC and wound to the left buttock region with some slight erythema more proximally. No crepitus. VAC appears to be holding suction. SKIN: Acyanotic, warm, dry, without rashes EXTREMITIES: Without swelling, tenderness or deformity NEUROLOGICAL: No focal deficits. No aphasia. No facial droop or slurred speech. Normal strength and tone in the extremities. Sensation to gross touch normal. Ambulatory. EK beats per and sinus tachycardia bundle branch block. No acute ST segment elevation with a QTc of 562. Nonspecific T wave flattening noted. CONTINUOUS CARDIAC MONITORING: was ordered and showed a heart rate of 100s-130s bpm in sinus tachycardia PDMP was checked without noted issue. GCS 15. Patient's laboratory studies and imaging reviewed. Differential includes Infection/UTI, dehydration, metabolic abnormality, hypo/hyperglycemia, electrolyte disturbance, anemia, hypoxia, cardiac sources, intracerebral event/neurologic, as well as other pathologies. IMPRESSION/MEDICAL DECISION MAKING: Patient still febrile even after some Tylenol prior to arrival. Bit confused but answering questions and does not have focal exam. Doubt CVA. Given his fall reportedly by upon her arrival complete head CT as well as CT of the cervical spine and pelvis. Does have a wound to the buttock with a little bit erythema. VAC in place and would not take down at this time. Urine sample sent from new Posey placed prior to arrival see if there are signs of infection this does appear floridly positive. Will cover with broad-spectrum antibiotics. Given some IV fluid for hydration. Chest x-ray reassuring per radiology. Blood work shows normal lactate with leukocytosis of 15. Chronic CKD. Normal TSH. Normal troponin. CT of the head, cervical spine, and abdomen pelvis per radiology report without significant traumatic injury with evidence of some constipation as well as dilation of the bladder and some hydronephrosis. Catheter and this does not appear to be positioned correctly. Again patient arrived with a catheter recently placed at the facility earlier today. Nursing staff to attempt replacement here - they were successful and over a liter of urine returned sent for sample still consistent with UTI. Covered broadly with Zosyn and vancomycin given history of MRSA in the past. Believe likely more UTI than the wound on the buttock but will need to come in for care given his weakness and fevers and comorbidities. Hospitalist team contacted. Later he does become more tachycardic with some rigors however his blood pressure is holding. DIAGNOSIS: UTI, weakness, sepsis, buttock wound DISPOSITION: Hospitalist will evaluate Patient was agreeable with this plan. Past Med/Surg History Medical History Prediabetes Hypercalcemia Insomnia Fall Muscle stiffness Lyme disease Hypertension Aneurysm of vertebral artery History of urinary self-catheterization Idiopathic insomnia Impotence, organic Glaucoma Hearing difficulty Multiple sclerosis (~1991) Vision problem Depression Adrenal adenoma Neurogenic bladder Peripheral neuropathy Surgical History Status post insertion of intrathecal baclofen pump 2008 and removal 2009 was about a year later. pump was making him too weak. then had csf leaking and that had to be repaired History of repair of rotator cuff History of back surgery Family History Mother Myocardial infarction Cardiac disorder Sister Multiple sclerosis COPD (chronic obstructive pulmonary disease) Father Leukemia Denies family history of Ovarian cancer Prostate cancer Breast cancer Colorectal cancer Social History Smoking Status: Former smoker Tobacco Type: Cigarettes Age Started Using Tobacco: 17; Age Quit Using Tobacco: 31; packs per day: 1; Second Hand Exposure: No; Do You Dip or Chew Tobacco: No; Hx Alcohol Use: Yes Alcohol Intake Frequency: 2-3 x/Week Hx Substance Use: No Preferred Language: Belgian Communication Ability: Effective Visual Impairment: Partially Limited Hearing Ability: Use of Hearing Aid 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: No Beliefs That Will Affect Care: Confucianist Confucianist Beliefs: Congregational marital status: Current Living Situation: Spouse current occupational status: retired How many Children do You have: 1 Feels Safe at Home: Yes Childhood Exposure to Second-Hand Smoke: No Diet: regular Diet Comment: regular caffeine: Yes (Coffee x 1 cup per day.) during the past year weight has: remained stable Dental Care, Regularly: Yes Physical Activity Frequency: Does not Exercise Seatbelt Use: always Sunscreen Use: No Assistive Devices: Hospital Bed, Scooter/Electric Scooter and Other Allergies Allergies Allergy/AdvReac Type Severity Reaction Status Date / Time No Known Allergies Allergy Verified 05/26/23 22:10 Home Meds Home Medications Medication Instructions Recorded Confirmed cholecalciferol (vitamin D3) 125 5,000 units PO DAILY 09/18/18 05/26/23 mcg (5,000 unit) tablet ascorbic acid (vitamin C) 500 mg 1,000 mg PO DAILY 11/21/18 05/26/23 tablet coenzyme Q10 100 mg capsule 100 mg PO DAILY 11/21/18 05/26/23 omega-3 acid ethyl esters 1 gram 1 cap PO BID 11/21/18 05/26/23 capsule polyethylene glycol 3350 17 17 g PO DAILY 03/10/19 05/26/23 gram/dose oral powder multivitamin with iron-mineral 1 tab PO DAILY 11/06/19 05/26/23 prevagen 1 tab PO DAILY 12/22/19 05/26/23 magnesium oxide 400 mg (241.3 mg 400 mg PO DAILY 05/02/22 05/26/23 magnesium) tablet bisacodyl 5 mg tablet,delayed 5 mg PO Q OTHER DAY 05/26/23 05/26/23 release calcium carbonate 500 mg PO DIRECTED 05/26/23 05/26/23 melatonin 5 mg tablet 5 mg PO HS PRN Insomnia 05/26/23 05/26/23 miconazole nitrate 2 % topical 1 applic topical DAILY PRN .rash 05/26/23 05/26/23 cream nutritional supplements 1 ea PO TID 05/26/23 05/26/23 Previous Rx's Medication Instructions Recorded ropinirole 2 mg tablet 2 mg PO TID #270 tabs 11/07/22 losartan 50 mg tablet 50 mg PO BID #90 tabs 04/02/23 hydrocodone 5 mg-acetaminophen 325 1 tab PO Q6H PRN pain #30 tabs 04/25/23 mg tablet acetaminophen 325 mg tablet 650 mg (2 x 325 mg) PO Q6H PRN 04/30/23 pain #30 tabs nortriptyline 10 mg capsule 20 mg (2 x 10 mg) PO BID #120 caps 04/30/23 oxycodone 5 mg tablet 5 mg PO Q6 PRN moderate-severe 04/30/23 pain #12 tabs zolpidem 10 mg tablet 10 mg PO HS #3 tabs 04/30/23 Results & Data (ED) Vital Signs Vital Signs - 24 hr 05/26/23 18:54 05/26/23 18:57 05/26/23 20:29 Temperature 39.1 C H Temperature Source Rectal Pulse Rate 113 H 110 H 104 H Pulse Rate from SpO2 Sensor 104 H Pulse Rhythm Regular Pulse Strength Normal Respiratory Rate 22 13 Respiratory Effort / Characteristics Non-Labored Spontaneous Respiratory Depth Normal Respiratory Pattern Regular Blood Pressure 108/80 105/78 Blood Pressure Mean 89 87 Blood Pressure Position Lying Pulse Oximetry 92 94 Oxygen Delivery Method Room Air Room Air Sepsis Recent Fever Within 48 Hours No Sepsis New/Unexplained Change in Mental Status N/A Sepsis Action Taken by Nursing Physician Notified 05/26/23 20:30 05/26/23 21:00 05/26/23 21:31 Temperature Temperature Source Pulse Rate 104 H 101 H 101 H Pulse Rate from SpO2 Sensor 104 H Pulse Rhythm Pulse Strength Respiratory Rate 28 H 25 H 16 Respiratory Effort / Characteristics Respiratory Depth Respiratory Pattern Blood Pressure 109/76 105/70 145/81 H Blood Pressure Mean 87 81 102 Blood Pressure Position Pulse Oximetry 93 98 Oxygen Delivery Method Room Air Room Air Sepsis Recent Fever Within 48 Hours Sepsis New/Unexplained Change in Mental Status Sepsis Action Taken by Nursing 05/26/23 21:50 05/26/23 21:50 Temperature 36.9 C Temperature Source Oral Pulse Rate 114 H Pulse Rate from SpO2 Sensor Pulse Rhythm Pulse Strength Respiratory Rate 26 H Respiratory Effort / Characteristics Respiratory Depth Respiratory Pattern Blood Pressure Blood Pressure Mean Blood Pressure Position Pulse Oximetry Oxygen Delivery Method Sepsis Recent Fever Within 48 Hours Sepsis New/Unexplained Change in Mental Status Sepsis Action Taken by Nursing Laboratory Data 05/26/23 20:26 05/26/23 20:26 Lab Results 05/26/23 05/26/23 05/26/23 Range/Units 19:13 19:30 19:51 WBC Cancelled RBC Cancelled Hgb Cancelled Hct Cancelled MCV Cancelled MCH Cancelled MCHC Cancelled RDW Std Deviation Cancelled RDW Coeff of Gracy Cancelled Plt Count Cancelled MPV Cancelled Immature Gran % (Auto) Cancelled Neut % (Auto) Cancelled Lymph % (Auto) Cancelled Dewey % (Auto) Cancelled Eos % (Auto) Cancelled Baso % (Auto) Cancelled Neut # (Auto) Cancelled Lymph # (Auto) Cancelled Dewey # (Auto) Cancelled Eos # (Auto) Cancelled Baso # (Auto) Cancelled Immature Gran # (Auto) Cancelled Absolute Nucleated RBC Cancelled Nucleated RBC % (auto) Cancelled Neutrophils % (Manual) Cancelled Band Neutrophils % Cancelled Lymphocytes % (Manual) Cancelled Prolymphocyte % Cancelled Reactive Lymphs % (Man) Cancelled Monocytes % (Manual) Cancelled Eosinophils % (Manual) Cancelled Basophils % (Manual) Cancelled Metamyelocytes % (Man) Cancelled Myelocytes % (Man) Cancelled Promyelocytes % (Man) Cancelled Blast Cells % (Manual) Cancelled Plasma Cell % (Manual) Cancelled Other Cells % Cancelled Nucleated RBC % Cancelled Neutrophils # (Manual) Cancelled Band Neutrophils # Cancelled Total Absolute Neuts Cancelled Lymphocytes # (Manual) Cancelled Prolymphocyte # Cancelled Reactive Lymphs # Cancelled Total Abs Lymphocytes Cancelled Monocytes # (Manual) Cancelled Eosinophils # (Manual) Cancelled Basophils # (Manual) Cancelled Metamyelocytes # (Man) Cancelled Myelocytes # (Manual) Cancelled Promyelocytes # (Man) Cancelled Blast Cells # (Man) Cancelled Plasma Cell # (Manual) Cancelled Other Cells # Cancelled Nucleated RBCs # (Man) Cancelled Hypersegmented Neuts Cancelled Hyposegmented Neuts Cancelled Hypogranular Neuts Cancelled Large Granular Lymphs Cancelled # Lrg Granular Lymphs Cancelled Hairy Cells Cancelled Smudge Cells Cancelled Toxic Granulation Cancelled Toxic Vacuolation Cancelled Dohle Bodies Cancelled Sandra Rods Cancelled Platelet Estimate Cancelled Hypogranular Platelets Cancelled Giant Platelets Cancelled Platelet Satelliting Cancelled RBC Morphology Cancelled Polychromasia Cancelled Hypochromasia Cancelled Poikilocytosis Cancelled Basophilic Stippling Cancelled Anisocytosis Cancelled Microcytosis Cancelled Macrocytosis Cancelled Spherocytes Cancelled Pappenheimer Bodies Cancelled Sickle Cells Cancelled Target Cells Cancelled Tear Drop Cells Cancelled Ovalocytes Cancelled Stomatocytes Cancelled Dennis-Blairs Bodies Cancelled Echinocytes Cancelled Acanthocytes (Spur) Cancelled Rouleaux Cancelled RBC Agglutinates Cancelled Schistocytes Cancelled Sezary Cell Cancelled PT 10.7 (9.0-12.0) Seconds INR 1.0 (0.9-1.1) Sodium 134 L (136-145) mmol/L Potassium TNP Chloride 101 (98-107) mmol/L Carbon Dioxide 23 (21-32) mmol/L Anion Gap 10 (3-11) BUN 49 H (6-23) mg/dl Creatinine 1.34 (0.6-1.4) mg/dl Est Cr Clr Drug Dosing 52.9 ml/min Est GFR ( Amer) 59.2 ml/min Est GFR (Non-Af Amer) 51.1 ml/min BUN/Creatinine Ratio 36.6 H (10-20) Glucose 221 H (70-99(Fasting)) mg/dl Lactate 1.1 (0.4-2.0) mmol/L Calcium 10.2 (8.6-10.3) mg/dl Magnesium 2.4 (1.7-2.4) mg/dl Total Bilirubin 1.7 H (0.2-1.0) mg/dl AST TNP ALT 22 (7-52) U/L Alkaline Phosphatase 106 H (34-104) U/L Troponin I High Sens 13.1 (0-20) pg/ml Total Protein 8.0 (6.0-8.3) gm/dl Albumin 4.2 (3.4-5.0) gm/dl Globulin 3.8 (2.5-4.0) gm/dl Albumin/Globulin Ratio 1.1 (0.9-2) TSH 4.463 (0.300-4.500) uIu/ml Urine Color Red Urine Appearance Turbid A (Clear) Urine pH 7.0 (4.5-7.5) Ur Specific Ellis 1.016 (1.000-1.030) Urine Protein 3+ H (Negative) Urine Glucose (UA) Negative (Negative) Urine Ketones Negative (Negative) Urine Blood 3+ H (Negative) Urine Nitrite Positive A (Negative) Urine Bilirubin Negative (Negative) Urine Urobilinogen Negative (Negative) Ur Leukocyte Esterase 3+ H (Negative) Urine WBC (Auto) >50 H (0-5) /hpf Urine RBC (Auto) >20 H (0-2) /hpf U Hyaline Cast (Auto) 3-5 H (0-2) /lpf U Epithel Cells (Auto) 3-5 H (0-2) /hpf Urine Bacteria (Auto) 4+ H (None Seen) Adenovirus (PCR) Not Detected (NotDetected) B. pertussis DNA (PCR) Not Detected (NotDetected) B.parapertussis DNA PCR Not Detected (NotDetected) C. pneumoniae DNA (PCR) Not Detected (NotDetected) Coronavirus OC43 (PCR) Not Detected (NotDetected) Coronavirus HKU1 (PCR) Not Detected (NotDetected) Coronavirus 229E (PCR) Not Detected (NotDetected) SARS-CoV-2 (PCR) Not Detected (NotDetected) Coronavirus NL63 (PCR) Not Detected (NotDetected) Human Metapneumovir PCR Not Detected (NotDetected) Influenza Type A (PCR) Not Detected (NotDetected) Influenza Type B (PCR) Not Detected (NotDetected) M. pneumoniae (PCR) Not Detected (NotDetected) Parainfluenza 1 (PCR) Not Detected (NotDetected) Parainfluenza 2 (PCR) Not Detected (NotDetected) Parainfluenza 3 (PCR) Not Detected (NotDetected) Parainfluenza 4 (PCR) Not Detected (NotDetected) RSV (PCR) Not Detected (NotDetected) Entero/Rhino (PCR) Not Detected (NotDetected) Blood Parasites ID Cancelled 05/26/23 05/26/23 Range/Units 20:26 20:30 WBC 15.56 H RBC 4.68 L Hgb 14.7 Hct 45.7 MCV 97.6 MCH 31.4 MCHC 32.2 RDW Std Deviation 50.7 H RDW Coeff of Gracy 14.1 Plt Count 239 MPV 9.2 L Immature Gran % (Auto) 0.4 Neut % (Auto) 84.0 Lymph % (Auto) 9.4 Dewey % (Auto) 5.7 Eos % (Auto) 0.3 Baso % (Auto) 0.2 Neut # (Auto) 13.09 H Lymph # (Auto) 1.46 Dewey # (Auto) 0.88 H Eos # (Auto) 0.04 Baso # (Auto) 0.03 Immature Gran # (Auto) 0.06 Absolute Nucleated RBC Nucleated RBC % (auto) Neutrophils % (Manual) Band Neutrophils % Lymphocytes % (Manual) Prolymphocyte % Reactive Lymphs % (Man) Monocytes % (Manual) Eosinophils % (Manual) Basophils % (Manual) Metamyelocytes % (Man) Myelocytes % (Man) Promyelocytes % (Man) Blast Cells % (Manual) Plasma Cell % (Manual) Other Cells % Nucleated RBC % Neutrophils # (Manual) Band Neutrophils # Total Absolute Neuts Lymphocytes # (Manual) Prolymphocyte # Reactive Lymphs # Total Abs Lymphocytes Monocytes # (Manual) Eosinophils # (Manual) Basophils # (Manual) Metamyelocytes # (Man) Myelocytes # (Manual) Promyelocytes # (Man) Blast Cells # (Man) Plasma Cell # (Manual) Other Cells # Nucleated RBCs # (Man) Hypersegmented Neuts Hyposegmented Neuts Hypogranular Neuts Large Granular Lymphs # Lrg Granular Lymphs Hairy Cells Smudge Cells Toxic Granulation Toxic Vacuolation Dohle Bodies Sandra Rods Platelet Estimate Hypogranular Platelets Giant Platelets Platelet Satelliting RBC Morphology Polychromasia Hypochromasia Poikilocytosis Basophilic Stippling Anisocytosis Microcytosis Macrocytosis Spherocytes Pappenheimer Bodies Sickle Cells Target Cells Tear Drop Cells Ovalocytes Stomatocytes Dennis-Blairs Bodies Echinocytes Acanthocytes (Spur) Rouleaux RBC Agglutinates Schistocytes Sezary Cell PT (9.0-12.0) Seconds INR (0.9-1.1) Sodium (136-145) mmol/L Potassium 4.1 Chloride (98-107) mmol/L Carbon Dioxide (21-32) mmol/L Anion Gap (3-11) BUN (6-23) mg/dl Creatinine (0.6-1.4) mg/dl Est Cr Clr Drug Dosing ml/min Est GFR ( Amer) ml/min Est GFR (Non-Af Amer) ml/min BUN/Creatinine Ratio (10-20) Glucose (70-99(Fasting)) mg/dl Lactate (0.4-2.0) mmol/L Calcium (8.6-10.3) mg/dl Magnesium (1.7-2.4) mg/dl Total Bilirubin (0.2-1.0) mg/dl AST 17 ALT (7-52) U/L Alkaline Phosphatase (34-104) U/L Troponin I High Sens (0-20) pg/ml Total Protein (6.0-8.3) gm/dl Albumin (3.4-5.0) gm/dl Globulin (2.5-4.0) gm/dl Albumin/Globulin Ratio (0.9-2) TSH (0.300-4.500) uIu/ml Urine Color Red Urine Appearance Turbid A (Clear) Urine pH 6.5 (4.5-7.5) Ur Specific Ellis 1.015 (1.000-1.030) Urine Protein 2+ H (Negative) Urine Glucose (UA) Negative (Negative) Urine Ketones Negative (Negative) Urine Blood 3+ H (Negative) Urine Nitrite Negative (Negative) Urine Bilirubin Negative (Negative) Urine Urobilinogen Negative (Negative) Ur Leukocyte Esterase 3+ H (Negative) Urine WBC (Auto) >50 H (0-5) /hpf Urine RBC (Auto) >20 H (0-2) /hpf U Hyaline Cast (Auto) 0-2 (0-2) /lpf U Epithel Cells (Auto) 0-2 (0-2) /hpf Urine Bacteria (Auto) 4+ H (None Seen) Adenovirus (PCR) (NotDetected) B. pertussis DNA (PCR) (NotDetected) B.parapertussis DNA PCR (NotDetected) C. pneumoniae DNA (PCR) (NotDetected) Coronavirus OC43 (PCR) (NotDetected) Coronavirus HKU1 (PCR) (NotDetected) Coronavirus 229E (PCR) (NotDetected) SARS-CoV-2 (PCR) (NotDetected) Coronavirus NL63 (PCR) (NotDetected) Human Metapneumovir PCR (NotDetected) Influenza Type A (PCR) (NotDetected) Influenza Type B (PCR) (NotDetected) M. pneumoniae (PCR) (NotDetected) Parainfluenza 1 (PCR) (NotDetected) Parainfluenza 2 (PCR) (NotDetected) Parainfluenza 3 (PCR) (NotDetected) Parainfluenza 4 (PCR) (NotDetected) RSV (PCR) (NotDetected) Entero/Rhino (PCR) (NotDetected) Blood Parasites ID Administered Medications Lactated Ringer's (Lr) 1,000 mls @ 80 mls/hr IV .[id number] SHALINI Stop: 05/27/23 22:44 Last Infusion: 05/26/23 23:38 Dose: 0 mls/hr Documented By: Admin: 05/26/23 21:56 Dose: 80 mls/hr Documented By: SOILA Discontinued Medications Acetaminophen (Acetaminophen 325 Mg Tab) 650 mg PO NOW STA Stop: 05/26/23 21:52 Last Admin: 05/26/23 22:07 Dose: Not Given Documented By: SOILA Acetaminophen (Acetaminophen 325 Mg Tab) Confirm Administered Dose 650 mg .ROUTE .STK-MED ONE Stop: 05/26/23 21:54 Last Admin: 05/26/23 21:54 Dose: 650 mg Documented By: SOILA Sodium Chloride (Nss) 1,000 mls @ 999 mls/hr IV .Q1H1M SHALINI Stop: 05/26/23 20:00 Last Infusion: 05/26/23 20:42 Dose: Infused Documented By: Admin: 05/26/23 19:28 Dose: 999 mls/hr Documented By: SOILA Sodium Chloride (Nss) 1,000 mls @ 999 mls/hr IV .Q1H1M ONE Stop: 05/26/23 21:03 Last Infusion: 05/26/23 21:44 Dose: Infused Documented By: Admin: 05/26/23 20:39 Dose: 999 mls/hr Documented By: SOILA Piperacillin Sod/Tazobactam Sod (Zosyn) 4.5 gm in 100 mls @ 200 mls/hr IV NOW ONE Stop: 05/26/23 20:33 Last Infusion: 05/26/23 21:44 Dose: Infused Documented By: Admin: 05/26/23 20:39 Dose: 200 mls/hr Documented By: SOILA Vancomycin HCl 1,750 mg/ (Sodium Chloride) 535 mls @ 200 mls/hr IV NOW ONE Stop: 05/26/23 23:29 Last Infusion: 05/27/23 00:37 Dose: Infused Documented By: Admin: 05/26/23 21:56 Dose: 200 mls/hr Documented By: SOILA Sodium Chloride (Nss) 1,000 mls @ 999 mls/hr IV .Q1H1M ONE Stop: 05/27/23 00:12 Last Infusion: 05/27/23 00:36 Dose: Infused Documented By: Admin: 05/26/23 23:35 Dose: 999 mls/hr Documented By: [facility] Imaging Data Radiologist's Impression: Chest X-Ray 05/26/23 18:57 SINGLE VIEW CHEST CLINICAL HISTORY: Generalized weakness. Fever. FINDINGS: 2 AP, portable, upright chest radiographs compared to study dated 04/27/2023. There is a large hiatal hernia. The heart is mildly enlarged noting atherosclerotic calcification of the thoracic aorta. The pulmonary vasculature is noncongested. Chronic interstitial thickening is similar to previous. A calcified granuloma is again seen in the left lower lung. There is bibasilar scarring/atelectasis. No airspace consolidation or large pleural effusion is identified. No pneumothorax is seen. The skeletal structures are osteopenic. The bony thorax is grossly intact. Arthritic change is noted in the shoulders and spine. IMPRESSION: 1. Cardiomegaly with no active disease in the chest. 2. Large hiatal hernia. ACT 112: Negative or not required by law. Electronically signed by: Ortiz Whyte M.D. 05/26/2023 7:11 PM Abdomen/Pelvis CT 05/26/23 19:13 Exam(s): CT ABDOMEN + PELVIS Without Contrast EXAM: CT Abdomen and Pelvis Without Intravenous Contrast CLINICAL HISTORY: Reason for exam: fall, buttock wound. TECHNIQUE: Axial computed tomography images of the abdomen and pelvis without intravenous contrast. CTDI is 36.18 mGy and DLP is 3091.21 mGy-cm. Automated exposure control was utilized for the study. A dose lowering technique was utilized adhering to the principles of ALARA. COMPARISON: No relevant prior studies available. FINDINGS: Mediastinum: Large hiatal hernia. ABDOMEN: Liver: Unremarkable. Gallbladder and bile ducts: Cholelithiasis without evidence of acute cholecystitis. No biliary dilatation. Pancreas: Unremarkable. Spleen: Unremarkable. Adrenals: Unremarkable. Kidneys and ureters: Mild bilateral hydroureteronephrosis. Stomach and bowel: Constipation with a large amount of stool in the sigmoid colon and rectum. PELVIS: Appendix: No findings to suggest acute appendicitis. Bladder: Distended bladder. Reproductive: Unremarkable as visualized. ABDOMEN and PELVIS: Intraperitoneal space: Unremarkable. No free air. No significant fluid collection. Bones/joints: No acute fracture. Severe degenerative changes in the spine particularly at L2-3 and L3-4. Postsurgical changes in the lower lumbar spine. Soft tissues: Fat-containing umbilical hernia. Vasculature: Unremarkable. Lymph nodes: Unremarkable. IMPRESSION: 1. Constipation with a large amount of stool in the sigmoid colon and rectum. 2. Bladder outlet obstruction with distended bladder and mild bilateral hydronephrosis. 3. Large hiatal hernia. 4. Fat-containing umbilical hernia. Electronically signed by: Sanju Krishnan MD 05/26/23 20:[address] 05/26/23 19:13 Exam(s): CT C SPINE EXAM: CT Cervical Spine Without Intravenous Contrast CLINICAL HISTORY: Reason for exam: fall. TECHNIQUE: Axial computed tomography images of the cervical spine without intravenous contrast. CTDI is 36.18 mGy and DLP is 3091.21 mGy-cm. Automated exposure control was utilized for the study. A dose lowering technique was utilized adhering to the principles of ALARA. COMPARISON: [place] [address] 20 FINDINGS: Vertebrae: No acute fracture. Degenerative changes. Osteopenia. Soft tissues: Unremarkable. IMPRESSION: No acute fracture. Electronically signed by: Sanju Krishnan MD 05/26/23 20:[address] 05/26/23 19:13 Exam(s): CT HEAD Without Contrast EXAM: CT Head Without Intravenous Contrast CLINICAL HISTORY: Reason for exam: fall, fever. TECHNIQUE: Axial computed tomography images of the head/brain without intravenous contrast. CTDI is 36.18 mGy and DLP is 3091.21 mGy-cm. Automated exposure control was utilized for the study. A dose lowering technique was utilized adhering to the principles of ALARA. COMPARISON: No relevant prior studies available. FINDINGS: Brain: No intracranial hemorrhage, mass-effect, or cerebral edema. Atrophy and chronic microvascular ischemic changes. Ventricles: Unremarkable. Bones/joints: Unremarkable. No fracture. Soft tissues: Unremarkable. Sinuses: No acute sinusitis. Mastoid air cells: Unremarkable as visualized. IMPRESSION: 1. No acute intracranial abnormality. Electronically signed by: Sanju Krishnan MD 05/26/23 20:35 PM Discharge Plan Visit Data Chief Complaint: Fever Stated Complaint: ALTERED MENTAL STATUS ED Provider: Alan Langford Discharge Problem: Acute UTI, Weakness Patient Disposition: Admitted As Inpatient Discharge Instructions Interventions: ED Discharge Assessment Last Done: 05/26/23 23:59
[2023-05-26] MEDS: SODIUM CHLORIDE 0.9% 1,000 ML IV SCH (19:28)
[2023-05-26 19:51] LABS: Appearance Urine Turbid (Clear); Bacteria Urine Automated 4+ (None Seen); Bilirubin Urine Negative (Negative); Blood Urine 3+ (Negative); Color Urine Red; Glucose Urine UA Negative (Negative); Ketones Urine Negative (Negative); Leukocyte Esterase Urine 3+ (Negative); Nitrite Urine Positive (Negative); Protein Urine 3+ (Negative); RBC Urine Automated >20 /hpf (0-2); Specific Gravity Urine 1.016 (1.000-1.030); Urobilinogen Urine Negative (Negative); WBC Urine Automated >50 /hpf (0-5)
[2023-05-26 20:08] LABS: Prothrombin Time 10.7 Seconds (9.0-12.0)
[2023-05-26 20:11] LABS: Alanine Aminotransferase 22 U/L (7-52); Albumin Globulin Ratio 1.1 (0.9-2); Albumin Level 4.2 gm/dl (3.4-5.0); Alkaline Phosphatase 106 U/L (34-104); Anion Gap 10 (3-11); BUN Creatinine Ratio 36.6 (10-20); Bilirubin,Total 1.7 mg/dl (0.2-1.0); Blood Urea Nitrogen 49 mg/dl (6-23); Calcium 10.2 mg/dl (8.6-10.3); Carbon Dioxide 23 mmol/L (21-32); Chloride 101 mmol/L (98-107); Creatinine Clr Calc Pharmacy 52.9 ml/min; Est GFR (African American) 59.2 ml/min; Est GFR (Non-African American) 51.1 ml/min; Globulin 3.8 gm/dl (2.5-4.0); Glucose 221 mg/dl (70-99(Fasting)); Magnesium 2.4 mg/dl (1.7-2.4); Sodium 134 mmol/L (136-145)
[2023-05-26 20:14] LABS: Troponin I High Sensitivity 13.1 pg/ml (0-20)
[2023-05-26 20:22] LABS: Thyroid Stimulating Hormone 4.463 uIu/ml (0.300-4.500)
--- OUTSIDE RECORDS SUMMARY | 2023-05-26 20:31 | External Medical Summary | Continuity Of Care Document ---
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 VITAL SIGNS Date Time Diastolic blood pressure Systolic blood pressure Body height Body weight Temperature SpO2 Blood Sugar Pulse Respirations 25261 325 06044 8 73.00 mm[Hg] - Sitting 113.00 mm[Hg] - Sitting 70 NI 99.90 Ear 94.00 % 79.00/ min 18.00/min 72204 325 92168 6 73746 325 62848 7 187.00 NI 42849 326 72720 8 59702 326 83953 6 17246 326 20174 0 71.00 mm[Hg] - Sitting 108.00 mm[Hg] - Sitting 98.60 Oral 92.00 % 91.00/ min 18.00/min 67105 326 89086 1 71.00 mm[Hg] - Lying Down 108.00 mm[Hg] - Lying Down 98.60 Ear 91.00/ min 18.00/min 82938 326 09608 5 183.00 [place] [address]63 326 07641 0 71.00 mm[Hg] - Sitting 108.00 mm[Hg] - Sitting 98.60 Ear 91.00/ min 18.00/min 06410 327 78045 1 71.00 mm[Hg] - Lying Down 108.00 mm[Hg] - Lying Down 98.60 Ear 91.00/ min 18.00/min 29592 327 07161 8 71.00 mm[Hg] - Sitting 108.00 mm[Hg] - Sitting 98.60 Ear 91.00/ min 18.00/min 72495 327 27911 8 56.00 mm[Hg] - Sitting 139.00 mm[Hg] - Sitting 98.90 Ear 96.00 % 100.00 /min 20.00/min 58076 328 14009 6 56.00 mm[Hg] - Lying Down 139.00 mm[Hg] - Lying Down 98.90 Ear 100.00 /min 20.00/min 88282 328 85860 0 16861 328 82841 8 80.00 mm[Hg] - Sitting 127.00 mm[Hg] - Sitting 98.10 Ear 94.00 % 112.00 /min 18.00/min 59739 330 79162 4 71.00 mm[Hg] - Sitting 98.00 mm[Hg] - Sitting 98.20 Ear 92.00 % 95.00/ min 20.00/min 15079 331 77211 0 61.00 mm[Hg] - Lying Down 93.00 mm[Hg] - Lying Down 99.00 Ear 93.00 % 96.00/ min 18.00/min 17459 401 54559 8 82.00 mm[Hg] - Sitting 134.00 mm[Hg] - Sitting 99.20 Ear 92.00 % 102.00 /min 18.00/min Immunizations Vaccine Date Status COVID-19 03/14/2020 Completed COVID-19 04/04/2020 Completed COVID-19 12/08/2020 Completed COVID-19 07/15/2021 Completed COVID-19 11/03/2021 Completed Influenza 12/18/2018 Completed (PCV13)Pneumococcal 10/10/2013 Completed (PPSV23)Pneumococcal 04/27/2016 Completed Tetanus 09/30/2013 Completed TDaP 09/30/2013 Completed
--- OUTSIDE RECORDS SUMMARY | 2023-05-26 20:31 | External Medical Summary | Continuity Of Care Document ---
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 VITAL SIGNS Date Time Diastolic blood pressure Systolic blood pressure Body height Body weight Temperature SpO2 Blood Sugar Pulse Respirations 75374 325 03997 8 73.00 mm[Hg] - Sitting 113.00 mm[Hg] - Sitting 70 NI 99.90 Ear 94.00 % 79.00/ min 18.00/min 12732 325 62959 6 71478 325 58443 7 187.00 NI [address]7821 326 51021 8 76080 326 98537 6 65808 326 98337 0 71.00 mm[Hg] - Sitting 108.00 mm[Hg] - Sitting 98.60 Oral 92.00 % 91.00/ min 18.00/min 31134 326 62706 1 71.00 mm[Hg] - Lying Down 108.00 mm[Hg] - Lying Down 98.60 Ear 91.00/ min 18.00/min 68315 326 13770 5 183[place]00 [place] [address] 326 47204 0 71.00 mm[Hg] - Sitting 108.00 mm[Hg] - Sitting 98.60 Ear 91.00/ min 18.00/min 76342 327 47488 1 71.00 mm[Hg] - Lying Down 108.00 mm[Hg] - Lying Down 98.60 Ear 91.00/ min 18.00/min 37390 327 25155 8 71.00 mm[Hg] - Sitting 108.00 mm[Hg] - Sitting 98.60 Ear 91.00/ min 18.00/min 04557 327 79811 8 56.00 mm[Hg] - Sitting 139.00 mm[Hg] - Sitting 98.90 Ear 96.00 % 100.00 /min 20.00/min 52578 328 10632 6 56.00 mm[Hg] - Lying Down 139.00 mm[Hg] - Lying Down 98.90 Ear 100.00 /min 20.00/min 82145 328 95607 0 62181 328 47192 8 80.00 mm[Hg] - Sitting 127.00 mm[Hg] - Sitting 98.10 Ear 94.00 % 112.00 /min 18.00/min 07451 330 09932 4 71.00 mm[Hg] - Sitting 98.00 mm[Hg] - Sitting 98.20 Ear 92.00 % 95.00/ min 20.00/min 41715 331 95658 0 61.00 mm[Hg] - Lying Down 93.00 mm[Hg] - Lying Down 99.00 Ear 93.00 % 96.00/ min 18.00/min 67821 401 36496 8 82.00 mm[Hg] - Sitting 134.00 mm[Hg] - Sitting 99.20 Ear 92.00 % 102.00 /min 18.00/min 81781 403 34416 2 83.00 mm[Hg] - Sitting 143.00 mm[Hg] - Sitting 98.90 Ear 92.00 % 97.00/ min 20.00/min 80066 404 90346 3 78.00 mm[Hg] - Sitting 125.00 mm[Hg] - Sitting 98.00 Ear 97.00 % 98.00/ min 17.00/min 05041 405 65130 8 70.00 mm[Hg] - Sitting 106.00 mm[Hg] - Sitting 98.60 Ear 92.00 % 97.00/ min 18.00/min 13947 407 10883 0 73.00 mm[Hg] - Sitting 114.00 mm[Hg] - Sitting 98.00 Ear 95.00 % 94.00/ min 18.00/min 47839 407 60648 2 222.00 NI [address]655 408 32623 5 65.00 mm[Hg] - Sitting 112.00 mm[Hg] - Sitting 99.10 Oral 93.00 % 99.00/ min 20.00/min 80594 409 86194 6 183.00 NI 27023 409 96199 0 69.00 mm[Hg] - Sitting 102.00 mm[Hg] - Sitting 98.90 Ear 91.00 % 104.00 /min 18.00/min 80559 410 32822 9 69.00 mm[Hg] - Sitting 118.00 mm[Hg] - Sitting 99.70 Ear 91.00 % 102.00 /min 18.00/min Immunizations Vaccine Date Status COVID-19 03/14/2020 Completed COVID-19 04/04/2020 Completed COVID-19 12/08/2020 Completed COVID-19 07/15/2021 Completed COVID-19 11/03/2021 Completed Influenza 12/18/2018 Completed Influenza 11/07/2022 Completed (PCV13)Pneumococcal 10/10/2013 Completed (PPSV23)Pneumococcal 04/27/2016 Completed (PCV20)Pneumococcal 05/02/2022 Completed Shingles 04/20/2020 Completed Tetanus 09/30/2013 Completed TDaP 09/30/2013 Completed
--- OUTSIDE RECORDS SUMMARY | 2023-05-26 20:31 | External Medical Summary | Continuity Of Care Document ---
Author Name Unknown Address [address] [place] [address] Organization [facility] ( ) Care Team Providers Care Energy And Conservation Technician Name Role Phone Roseann Nguyễn Primary Care Provider [phone] Problems Code Description Start Date End Date [...] weight Temperature SpO2 Blood Sugar Pulse Respirations 17765 325 00643 8 73.00 mm[Hg] - Sitting 113.00 mm[Hg] - Sitting 70 NI 99.90 Ear 94.00 % 79.00/ min 18.00/min 93929 325 86142 6 52472 325 57171 7 187.00 [place] [address]309 326 95813 8 40981 326 60111 6 81766 326 67792 0 71.00 mm[Hg] - Sitting 108.00 mm[Hg] - Sitting 98.60 Oral 92.00 % 91.00/ min 18.00/min 67770 326 47672 1 71.00 mm[Hg] - Lying Down 108.00 mm[Hg] - Lying Down 98.60 Ear 91.00/ min 18.00/min 32729 326 18983 5 183.00 NI [address]8763 326 76436 0 71.00 mm[Hg] - Sitting 108.00 mm[Hg] - Sitting 98.60 Ear 91.00/ min 18.00/min 24732 327 48057 1 71.00 mm[Hg] - Lying Down 108.00 mm[Hg] - Lying Down 98.60 Ear 91.00/ min 18.00/min 36440 327 61174 8 71.00 mm[Hg] - Sitting 108.00 mm[Hg] - Sitting 98.60 Ear 91.00/ min 18.00/min 76135 327 34452 8 56.00 mm[Hg] - Sitting 139.00 mm[Hg] - Sitting 98.90 Ear 96.00 % 100.00 /min 20.00/min 05885 328 22723 6 56.00 mm[Hg] - Lying Down 139.00 mm[Hg] - Lying Down 98.90 Ear 100.00 /min 20.00/min 29147 328 54900 0 02077 328 24664 8 80.00 mm[Hg] - Sitting 127.00 mm[Hg] - Sitting 98.10 Ear 94.00 % 112.00 /min 18.00/min 89550 330 80478 4 71.00 mm[Hg] - Sitting 98.00 mm[Hg] - Sitting 98.20 Ear 92.00 % 95.00/ min 20.00/min 11539 331 72831 0 61.00 mm[Hg] - Lying Down 93.00 mm[Hg] - Lying Down 99.00 Ear 93.00 % 96.00/ min 18.00/min 95432 401 74365 8 82.00 mm[Hg] - Sitting 134.00 mm[Hg] - Sitting 99.20 Ear 92.00 % 102.00 /min 18.00/min 92884 403 03715 2 83.00 mm[Hg] - Sitting 143.00 mm[Hg] - Sitting 98.90 Ear 92.00 % 97.00/ min 20.00/min 87696 404 75747 3 78.00 mm[Hg] - Sitting 125.00 mm[Hg] - Sitting 98.00 Ear 97.00 % 98.00/ min 17.00/min 12181 405 50433 8 70.00 mm[Hg] - Sitting 106.00 mm[Hg] - Sitting 98.60 Ear 92.00 % 97.00/ min 18.00/min 17716 407 79828 0 73.00 mm[Hg] - Sitting 114.00 mm[Hg] - Sitting 98.00 Ear 95.00 % 94.00/ min 18.00/min 62365 407 20931 2 222.00 NI 14767 408 11908 5 65.00 mm[Hg] - Sitting 112.00 mm[Hg] - Sitting 99.10 Oral 93.00 % 99.00/ min 20.00/min 40048 409 94654 6 183.00 NI 83705 409 64952 0 69.00 mm[Hg] - Sitting 102.00 mm[Hg] - Sitting 98.90 Ear 91.00 % 104.00 /min 18.00/min 98467 410 75365 9 69.00 mm[Hg] - Sitting 118.00 mm[Hg] [...]
--- OUTSIDE RECORDS SUMMARY | 2023-05-26 20:31 | External Medical Summary | Continuity Of Care Document ---
Author Name Unknown Address [address] [place] [address] Organization [facility] ( ) Care Team Providers Care Therapeutic Recreation Assistant Name Role Phone Roseann Nguyễn Primary Care Provider [phone] Problems Code Description Start Date End Date [...] weight Temperature SpO2 Blood Sugar Pulse Respirations 48184 325 08087 8 73.00 mm[Hg] - Sitting 113.00 mm[Hg] - Sitting 70 NI 99.90 Ear 94.00 % 79.00/ min 18.00/min 04275 325 16630 6 95419 325 62391 7 187.00 NI 06082 326 36887 8 00022 326 90837 6 00407 326 16304 0 71.00 mm[Hg] - Sitting 108.00 mm[Hg] - Sitting 98.60 Oral 92.00 % 91.00/ min 18.00/min 50989 326 09889 1 71.00 mm[Hg] - Lying Down 108.00 mm[Hg] - Lying Down 98.60 Ear 91.00/ min 18.00/min 32717 326 13565 5 183.00 [place] [address] 326 14237 0 71.00 mm[Hg] - Sitting 108.00 mm[Hg] - Sitting 98.60 Ear 91.00/ min 18.00/min 85853 327 68547 1 71.00 mm[Hg] - Lying Down 108.00 mm[Hg] - Lying Down 98.60 Ear 91.00/ min 18.00/min 05276 327 53257 8 71.00 mm[Hg] - Sitting 108.00 mm[Hg] - Sitting 98.60 Ear 91.00/ min 18.00/min 96694 327 77448 8 56.00 mm[Hg] - Sitting 139.00 mm[Hg] - Sitting 98.90 Ear 96.00 % 100.00 /min 20.00/min 56645 328 23585 6 56.00 mm[Hg] - Lying Down 139.00 mm[Hg] - Lying Down 98.90 Ear 100.00 /min 20.00/min 05829 328 77484 0 76311 328 39332 8 80.00 mm[Hg] - Sitting 127.00 mm[Hg] - Sitting 98.10 Ear 94.00 % 112.00 /min 18.00/min 96097 330 61190 4 71.00 mm[Hg] - Sitting 98.00 mm[Hg] - Sitting 98.20 Ear 92.00 % 95.00/ min 20.00/min 19444 331 35815 0 61.00 mm[Hg] - Lying Down 93.00 mm[Hg] - Lying Down 99.00 Ear 93.00 % 96.00/ min 18.00/min 73967 401 53218 8 82.00 mm[Hg] - Sitting 134.00 mm[Hg] - Sitting 99.20 Ear 92.00 % 102.00 /min 18.00/min 16701 403 38021 2 83.00 mm[Hg] - Sitting 143.00 mm[Hg] - Sitting 98.90 Ear 92.00 % 97.00/ min 20.00/min 34328 404 06014 3 78.00 mm[Hg] - Sitting 125.00 mm[Hg] - Sitting 98.00 Ear 97.00 % 98.00/ min 17.00/min Immunizations Vaccine Date Status COVID-19 03/14/2020 Completed COVID-19 04/04/2020 Completed COVID-19 12/08/2020 Completed COVID-19 07/15/2021 Completed COVID-19 11/03/2021 Completed Influenza 12/18/2018 Completed Influenza 11/07/2022 Completed (PCV13)Pneumococcal 10/10/2013 Completed (PPSV23)Pneumococcal 04/27/2016 Completed (PCV20)Pneumococcal 05/02/2022 Completed Shingles 04/20/2020 Completed Tetanus 09/30/2013 Completed TDaP 09/30/2013 Completed
--- NOTE | 2023-05-26 20:36 | CT Scan Report ---
Exam(s): CT HEAD Without Contrast EXAM: CT Head Without Intravenous Contrast CLINICAL HISTORY: Reason for exam: fall, fever. TECHNIQUE: Axial computed tomography images of the head/brain without intravenous contrast. CTDI is 36.18 mGy and DLP is 3091.21 mGy-cm. Automated exposure control was utilized for the study. A dose lowering technique was utilized adhering to the principles of ALARA. COMPARISON: No relevant prior studies available. FINDINGS: Brain: No intracranial hemorrhage, mass-effect, or cerebral edema. Atrophy and chronic microvascular ischemic changes. Ventricles: Unremarkable. Bones/joints: Unremarkable. No fracture. Soft tissues: Unremarkable. Sinuses: No acute sinusitis. Mastoid air cells: Unremarkable as visualized. IMPRESSION: 1. No acute intracranial abnormality. Electronically signed by: Sanju Krishnan MD 05/26/23 20:35 PM
--- NOTE | 2023-05-26 20:38 | CT Scan Report ---
Exam(s): CT ABDOMEN + PELVIS Without Contrast EXAM: CT Abdomen and Pelvis Without Intravenous Contrast CLINICAL HISTORY: Reason for exam: fall, buttock wound. TECHNIQUE: Axial computed tomography images of the abdomen and pelvis without intravenous contrast. CTDI is 36.18 mGy and DLP is 3091.21 mGy-cm. Automated exposure control was utilized for the study. A dose lowering technique was utilized adhering to the principles of ALARA. COMPARISON: No relevant prior studies available. FINDINGS: Mediastinum: Large hiatal hernia. ABDOMEN: Liver: Unremarkable. Gallbladder and bile ducts: Cholelithiasis without evidence of acute cholecystitis. No biliary dilatation. Pancreas: Unremarkable. Spleen: Unremarkable. Adrenals: Unremarkable. Kidneys and ureters: Mild bilateral hydroureteronephrosis. Stomach and bowel: Constipation with a large amount of stool in the sigmoid colon and rectum. PELVIS: Appendix: No findings to suggest acute appendicitis. Bladder: Distended bladder. Reproductive: Unremarkable as visualized. ABDOMEN and PELVIS: Intraperitoneal space: Unremarkable. No free air. No significant fluid collection. Bones/joints: No acute fracture. Severe degenerative changes in the spine particularly at L2-3 and L3-4. Postsurgical changes in the lower lumbar spine. Soft tissues: Fat-containing umbilical hernia. Vasculature: Unremarkable. Lymph nodes: Unremarkable. IMPRESSION: 1. Constipation with a large amount of stool in the sigmoid colon and rectum. 2. Bladder outlet obstruction with distended bladder and mild bilateral hydronephrosis. 3. Large hiatal hernia. 4. Fat-containing umbilical hernia. Electronically signed by: Sanju Krishnan MD 05/26/23 20:38 PM
[2023-05-26] MEDS: PIPERACILLIN/TAZOBACTAM 4.5 GM/100 ML BAG IV ONE (20:39)
[2023-05-26] MEDS: SODIUM CHLORIDE 0.9% 1,000 ML IV ONE ×2 (20:39→23:35)
--- NOTE | 2023-05-26 20:40 | CT Scan Report ---
Exam(s): CT C SPINE EXAM: CT Cervical Spine Without Intravenous Contrast CLINICAL HISTORY: Reason for exam: fall. TECHNIQUE: Axial computed tomography images of the cervical spine without intravenous contrast. CTDI is 36.18 mGy and DLP is 3091.21 mGy-cm. Automated exposure control was utilized for the study. A dose lowering technique was utilized adhering to the principles of ALARA. COMPARISON: [place] [id number] FINDINGS: Vertebrae: No acute fracture. Degenerative changes. Osteopenia. Soft tissues: Unremarkable. IMPRESSION: No acute fracture. Electronically signed by: Sanju Krishnan MD 05/26/23 20:39 PM
[2023-05-26 20:41] LABS: Basophils # (auto) 0.03 K/uL (0.00-0.20); Basophils % (auto) 0.2 %; Eosinophils # (auto) 0.04 K/uL (0.00-0.50); Eosinophils % (auto) 0.3 %; Hematocrit (blood only) 45.7 % (42.0-52.0); Hemoglobin 14.7 g/dl (14.0-18.0); Immature Granulocytes # (auto) 0.06 K/uL (0.01-0.20); Immature Granulocytes % (auto) 0.4 %; Lymphocytes # (auto) 1.46 K/uL (1.20-3.40); Lymphocytes % (auto) 9.4 %; Mean Corpuscular Hemoglobin 31.4 pg (25.0-34.0); Mean Corpuscular Hgb Conc 32.2 g/dL (32.0-36.0); Mean Corpuscular Volume 97.6 fL (80.0-100.0); Mean Platelet Volume 9.2 fL (9.4-12.4); Monocytes # (auto) 0.88 K/uL (0.11-0.59); Monocytes % (auto) 5.7 %; Neutrophils # (auto) 13.09 K/uL (1.40-6.50); Platelet Count 239 K/uL (130-400); RDW Coefficient of Variation 14.1 % (11.5-14.5); RDW Standard Deviation 50.7 fL (36.4-46.3); Red Blood Count 4.68 M/uL (4.70-6.10); White Blood Count 15.56 K/ul (4.8-10.8)
[2023-05-26] MEDS ORDERED: VANCOMYCIN CONSULT ACTIVE PRN (20:49)
[2023-05-26 20:55] LABS: Adenovirus PCR Not Detected (NotDetected); Bordetella parapertussis PCR Not Detected (NotDetected); Bordetella pertussis PCR Not Detected (NotDetected); Chlamydia pneumoniae PCR Not Detected (NotDetected); Coronavirus 229E PCR Not Detected (NotDetected); Coronavirus CoV-2 (COVID19)PCR Not Detected (NotDetected); Coronavirus HKU1 PCR Not Detected (NotDetected); Coronavirus NL63 PCR Not Detected (NotDetected); Coronavirus OC43PCR Not Detected (NotDetected); Human Metapneumovirus PCR Not Detected (NotDetected); Influenza A PCR Not Detected (NotDetected); Influenza B PCR Not Detected (NotDetected); Mycoplasma pneumoniae PCR Not Detected (NotDetected); Parainfluenza Virus 1 PCR Not Detected (NotDetected); Parainfluenza Virus 2 PCR Not Detected (NotDetected); Parainfluenza Virus 3 PCR Not Detected (NotDetected); Parainfluenza Virus 4 PCR Not Detected (NotDetected); Respiratory Syncytial VirusPCR Not Detected (NotDetected); Rhinovirus/Enterovirus PCR Not Detected (NotDetected)
[2023-05-26 20:59] LABS: Potassium 4.1 mmol/L (3.5-5.1)
[2023-05-26 21:45] LABS: Appearance Urine Turbid (Clear); Bacteria Urine Automated 4+ (None Seen); Bilirubin Urine Negative (Negative); Blood Urine 3+ (Negative); Cast Urine Automated 0-2 /lpf (0-2); Color Urine Red; Epithelial Cell Urine Auto 0-2 /hpf (0-2); Glucose Urine UA Negative (Negative); Ketones Urine Negative (Negative); Leukocyte Esterase Urine 3+ (Negative); Nitrite Urine Negative (Negative); Protein Urine 2+ (Negative); RBC Urine Automated >20 /hpf (0-2); Specific Gravity Urine 1.015 (1.000-1.030); Urobilinogen Urine Negative (Negative); WBC Urine Automated >50 /hpf (0-5); pH Urine 6.5 (4.5-7.5)
[2023-05-26] MEDS: ACETAMINOPHEN 325 MG TAB ONE (21:54)
[2023-05-26] MEDS: LACTATED RINGER'S 1,000 ML IV SCH (21:56)
[2023-05-26] MEDS: VANCOMYCIN HCL 1,750 MG in SODIUM CHLORIDE 0.9% 500 ML IV ONE (21:56)
--- NOTE | 2023-05-26 21:58 | History & Physical Report ---
Date of Service May 26, 2023 Assessment & Plan (1) Sepsis due to urinary tract infection: (2) Metabolic encephalopathy: (3) Weakness: (4) Acute UTI: (5) Gross hematuria: (6) Wound of buttock: (7) Multiple sclerosis: (8) Neurogenic bladder: (9) Idiopathic insomnia: (10) Hypertension: (11) Peripheral neuropathy: (12) Confusion: (13) Decubitus ulcer of sacral area: Plan Sepsis due to UTI- Initial temperature 39.1 in the ED, and heart rate increased to the low 100s up to the 120s Follow urine culture and sensitivity Continue Zosyn 4.5 g IV every 8 hours Patient initially was placed on vancomycin IV as well, but this caused his IV to infiltrate, and was then changed to daptomycin IV Gross hematuria secondary to malplacement of initial Posey catheter at [facility], where Posey bulb was opened within the prostate Continue Posey catheter which is now in proper position, having drained 1 L of urine relatively quickly after correct replacement He received 2 L normal saline bolus from the ED He was then given a 3rd l normal saline bolus Place on LR at 80 mL/h x 2 L for maintenance IV fluids Will consult urology Metabolic encephalopathy- Patient initially had clear mentation upon arrival to the ED, but became more confused and encephalopathic He will be kept n.p.o. at this time until mentation clears He did have a normal CT scan of head and cervical spine He was assessed by the ICU team while in the ED Fecal load in rectum and sigmoid colon- Avoid direct stimulation at this point, will rehydrate, and begin more aggressive regimen tomorrow Left buttock decubitus with wound VAC- Consult wound care His has recent pictures, and looks to be significantly improved from initial infection Idiopathic insomnia/RLS/peripheral neuropathy- Hold oral medications until he is more alert History of Present Illness Chief Complaint: The patient had been discharged to [facility] after admission at [facility] from 04/25-04/30/2023, and today was noted to become progressively more confused, and had a Posey catheter placed to monitor urine output. He was brought to the emergency department due to the progressively worsening confusion [facility] The patient is a 77-year-old male with past medical history including multiple sclerosis, depression, left buttock wound requiring wound VAC, idiopathic insomnia, hypertension, urinary retention, hearing difficulty, adrenal adenoma, peripheral neuropathy, RLS, and hypertension. He had been admitted to [facility] from 04/25-04/30/2023, and was then was discharged to [facility]. He has had improvement in his left buttock wound, and continues to be utilizing a wound VAC. He was transferred to [facility] emergency department, due to worsening confusion throughout the day today, and decreased urine output despite placement of a Posey catheter. His reports that he appeared to have been intermittently confused over the past few days. In the emergency department, patient's Posey catheter was found to have bulb dilated within the prostate, and when this was deflated, we positioned and reinserted, he was initially found to have clear urine, and then had gross hematuria without clots. In the emergency department patient initially was conversant, but he became more confused, and appeared to be developing encephalopathy. Allergies Allergy/AdvReac Type Severity Reaction Status Date / Time No Known Allergies Allergy Verified 05/26/23 22:10 Home Medications Medication Instructions Recorded Confirmed Type cholecalciferol (vitamin D3) 125 5,000 units PO DAILY 09/18/18 05/26/23 History mcg (5,000 unit) tablet ascorbic acid (vitamin C) 500 mg 1,000 mg PO DAILY 11/21/18 05/26/23 History tablet coenzyme Q10 100 mg capsule 100 mg PO DAILY 11/21/18 05/26/23 History omega-3 acid ethyl esters 1 gram 1 cap PO BID 11/21/18 05/26/23 History capsule polyethylene glycol 3350 17 17 g PO DAILY 03/10/19 05/26/23 History gram/dose oral powder multivitamin with iron-mineral 1 tab PO DAILY 11/06/19 05/26/23 History prevagen 1 tab PO DAILY 12/22/19 05/26/23 History magnesium oxide 400 mg (241.3 mg 400 mg PO DAILY 05/02/22 05/26/23 History magnesium) tablet ropinirole 2 mg tablet 2 mg PO TID #270 tabs 11/07/22 05/26/23 Rx losartan 50 mg tablet 50 mg PO BID #90 tabs 04/02/23 05/26/23 Rx hydrocodone 5 mg-acetaminophen 325 1 tab PO Q6H PRN pain #30 tabs 04/25/23 04/26/23 Rx mg tablet acetaminophen 325 mg tablet 650 mg (2 x 325 mg) PO Q6H PRN 04/30/23 05/26/23 Rx pain #30 tabs nortriptyline 10 mg capsule 20 mg (2 x 10 mg) PO BID #120 caps 04/30/23 05/26/23 Rx oxycodone 5 mg tablet 5 mg PO Q6 PRN moderate-severe 04/30/23 05/26/23 Rx pain #12 tabs zolpidem 10 mg tablet 10 mg PO HS #3 tabs 04/30/23 05/26/23 Rx bisacodyl 5 mg tablet,delayed 5 mg PO Q OTHER DAY 05/26/23 05/26/23 History release calcium carbonate 500 mg PO DIRECTED 05/26/23 05/26/23 History melatonin 5 mg tablet 5 mg PO HS PRN Insomnia 05/26/23 05/26/23 History miconazole nitrate 2 % topical 1 applic topical DAILY PRN .rash 05/26/23 05/26/23 History cream nutritional supplements 1 ea PO TID 05/26/23 05/26/23 History Past Med/Surg History Medical History Prediabetes Hypercalcemia Insomnia Fall Muscle stiffness Lyme disease Hypertension Aneurysm of vertebral artery History of urinary self-catheterization Idiopathic insomnia Impotence, organic Glaucoma Hearing difficulty Multiple sclerosis (~1991) Vision problem Depression Adrenal adenoma Neurogenic bladder Peripheral neuropathy Surgical History Status post insertion of intrathecal baclofen pump 2008 and removal 2009 was about a year later. pump was making him too weak. then had csf leaking and that had to be repaired History of repair of rotator cuff History of back surgery Family History Mother Myocardial infarction Cardiac disorder Sister Multiple sclerosis COPD (chronic obstructive pulmonary disease) Father Leukemia Denies family history of Ovarian cancer Prostate cancer Breast cancer Colorectal cancer Social History Smoking Status: Former smoker Tobacco Type: Cigarettes Age Started Using Tobacco: 17; Age Quit Using Tobacco: 31; packs per day: 1; Second Hand Exposure: No; Do You Dip or Chew Tobacco: No; Hx Alcohol Use: No Hx Substance Use: No Preferred Language: Occitan Communication Ability: Effective Visual Impairment: Partially Limited Hearing Ability: Use of Hearing Aid 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: No Beliefs That Will Affect Care: Uatsdin Uatsdin Beliefs: Church marital status: Current Living Situation: Longterm current occupational status: retired How many Children do You have: 1 Feels Safe at Home: Yes Childhood Exposure to Second-Hand Smoke: No Diet: regular Diet Comment: regular caffeine: Yes (Coffee x 1 cup per day.) during the past year weight has: remained stable Dental Care, Regularly: Yes Physical Activity Frequency: Does not Exercise Seatbelt Use: always Sunscreen Use: No Assistive Devices: Hearing Aid - Bilateral and Wheelchair Review of Systems Review of Systems: The patient denies chest pain, palpitations, shortness of breath, dyspnea on exertion, cough, lower extremity swelling, sore throat, fevers, chills, sweats, nausea, vomiting, diarrhea , constipation, abdominal pain, pelvic pain, blood in stool, lightheadedness, dizziness, headache, memory loss, loss of consciousness, focal or generalized weakness, numbness or tingling in arms, neck pain, or night sweats. The review of systems is otherwise negative other than for that already noted above, and at least 10 systems have been reviewed. Physical Exam Physical Exam: The patient is awake, alert and oriented 3, well developed and well nourished, normocephalic and atraumatic, lying in bed and in progressively worsening acute distress. HEENT--PERRL, EOMI, mucous membranes and oropharynx mildly dry. Neck--supple. No JVD. No bruits. Thyroid normal, trachea midline, no adenopathy. Heart--normal S1 and S2. No murmurs, rubs or gallops. Lungs--clear bilaterally, no respiratory distress, no accessory muscle use. Abdomen--normal bowel sounds and soft. Nontender. Nondistended, no hernias or masses, no organomegaly. Extremities-- No edema. Dermatologic--normal skin turgor, normal color, no abnormal lymph nodes, no rash. Neurologic--cranial nerves II through XII grossly intact. Rheumatologic--normal range of motion. Psychiatric--normal affect, until he became encephalopathic and confused while in the ED Results & Data Results & Data Vital Signs (Past 12 Hours) Vital Signs Temp Pulse Resp BP Pulse Ox O2 Del Method 05/26/23 21:00 101 H 25 H 105/70 98 Room Air 05/26/23 20:30 104 H 28 H 109/76 93 Room Air 05/26/23 20:29 104 H 13 105/78 94 Room Air 05/26/23 18:57 39.1 C H 110 H 22 108/80 92 Room Air 05/26/23 18:54 113 H Laboratory Results Laboratory Results WBC 15.56 K/ul (4.8-10.8) H 05/26/23 20: RBC 4.68 M/uL (4.70-6.10) L 05/26/23 20: Hgb 14.7 g/dl (14.0-18.0) 05/26/23 20: Hct 45.7 % (42.0-52.0) 05/26/23 20: MCV 97.6 fL (80.0-100.0) 05/26/23: MCH 31.4 pg (25.0-34.0) 05/26/23 20: MCHC 32.2 g/dL (32.0-36.0) 05/26/23 20: RDW Std Deviation 50.7 fL (36.4-46.3) H 05/26/23 20: RDW Coeff of Gracy 14.1 % (11.5-14.5) 05/26/23: Plt Count 239 K/uL (130-400) 05/26/23 20: MPV 9.2 fL (9.4-12.4) L 05/26/23: Immature Gran % (Auto) 0.4 % 05/26/23 20: Neut % (Auto) 84.0 % 05/26/23: Lymph % (Auto) 9.4 % 05/26/23: [place] % (Auto) 5.7 % 05/26/23 20: Eos % (Auto) 0.3 % 05/26/23 20: Baso % (Auto) 0.2 % 05/26/23: Neut # (Auto) 13.09 K/uL (1.40-6.50) H 05/26/23 20:26 Lymph # (Auto) 1.46 K/uL (1.20-3.40) 05/26/23 20:26 [place] # (Auto) 0.88 K/uL (0.11-0.59) H 05/26/23 20:26 Eos # (Auto) 0.04 K/uL (0.00-0.50) 05/26/23 20:26 Baso # (Auto) 0.03 K/uL (0.00-0.20) 05/26/23 20:26 Immature Gran # (Auto) 0.06 K/uL (0.01-0.20) 05/26/23 20:26 Absolute Nucleated RBC Cancelled 05/26/23 19:13 Nucleated RBC % (auto) Cancelled 05/26/23 19:13 Neutrophils % (Manual) Cancelled 05/26/23 19:13 Band Neutrophils % Cancelled 05/26/23 19:13 Lymphocytes % (Manual) Cancelled 05/26/23 19:13 Prolymphocyte % Cancelled 05/26/23 19:13 Reactive Lymphs % (Man) Cancelled 05/26/23 19:13 Monocytes % (Manual) Cancelled 05/26/23 19:13 Eosinophils % (Manual) Cancelled 05/26/23 19:13 Basophils % (Manual) Cancelled 05/26/23 19:13 Metamyelocytes % (Man) Cancelled 05/26/23 19:13 Myelocytes % (Man) Cancelled 05/26/23 19:13 Promyelocytes % (Man) Cancelled 05/26/23 19:13 Blast Cells % (Manual) Cancelled 05/26/23 19:13 Plasma Cell % (Manual) Cancelled 05/26/23 19:13 Other Cells % Cancelled 05/26/23 19:13 Nucleated RBC % Cancelled 05/26/23 19:13 Neutrophils # (Manual) Cancelled 05/26/23 19:13 Band Neutrophils # Cancelled 05/26/23 19:13 Total Absolute Neuts Cancelled 05/26/23 19:13 Lymphocytes # (Manual) Cancelled 05/26/23 19:13 Prolymphocyte # Cancelled 05/26/23 19:13 Reactive Lymphs # Cancelled 05/26/23 19:13 Total Abs Lymphocytes Cancelled 05/26/23 19:13 Monocytes # (Manual) Cancelled 05/26/23 19:13 Eosinophils # (Manual) Cancelled 05/26/23 19:13 Basophils # (Manual) Cancelled 05/26/23 19:13 Metamyelocytes # (Man) Cancelled 05/26/23 19:13 Myelocytes # (Manual) Cancelled 05/26/23 19:13 Promyelocytes # (Man) Cancelled 05/26/23 19:13 Blast Cells # (Man) Cancelled 05/26/23 19:13 Plasma Cell # (Manual) Cancelled 05/26/23 19:13 Other Cells # Cancelled 05/26/23 19:13 Nucleated RBCs # (Man) Cancelled 05/26/23 19:13 Hypersegmented Neuts Cancelled 05/26/23 19:13 Hyposegmented Neuts Cancelled 05/26/23 19:13 Hypogranular Neuts Cancelled 05/26/23 19:13 Large Granular Lymphs Cancelled 05/26/23 19:13 # Lrg Granular Lymphs Cancelled 05/26/23 19:13 Hairy Cells Cancelled 05/26/23 19:13 Smudge Cells Cancelled 05/26/23 19:13 Toxic Granulation Cancelled 05/26/23 19:13 Toxic Vacuolation Cancelled 05/26/23 19:13 Dohle Bodies Cancelled 05/26/23 19:13 Sandra Rods Cancelled 05/26/23 19:13 Platelet Estimate Cancelled 05/26/23 19:13 Hypogranular Platelets Cancelled 05/26/23 19:13 Giant Platelets Cancelled 05/26/23 19:13 Platelet Satelliting Cancelled 05/26/23 19:13 RBC Morphology Cancelled 05/26/23 19:13 Polychromasia Cancelled 05/26/23 19:13 Hypochromasia Cancelled 05/26/23 19:13 Poikilocytosis Cancelled 05/26/23 19:13 Basophilic Stippling Cancelled 05/26/23 19:13 Anisocytosis Cancelled 05/26/23 19:13 Microcytosis Cancelled 05/26/23 19:13 Macrocytosis Cancelled 05/26/23 19:13 Spherocytes Cancelled 05/26/23 19:13 Pappenheimer Bodies Cancelled 05/26/23 19:13 Sickle Cells Cancelled 05/26/23 19:13 Target Cells Cancelled 05/26/23 19:13 Tear Drop Cells Cancelled 05/26/23 19:13 Ovalocytes Cancelled 05/26/23 19:13 Stomatocytes Cancelled 05/26/23 19:13 [place] Bodies Cancelled 05/26/23 19:13 Echinocytes Cancelled 05/26/23 19:13 Acanthocytes (Spur) Cancelled 05/26/23 19:13 Rouleaux Cancelled 05/26/23 19:13 RBC Agglutinates Cancelled 05/26/23 19:13 Schistocytes Cancelled 05/26/23 19:13 Sezary Cell Cancelled 05/26/23 19:13 PT 10.7 Seconds (9.0-12.0) 05/26/23 19:13 INR 1.0 (0.9-1.1) 05/26/23 19:13 Sodium 134 mmol/L (136-145) L 05/26/23 19:13 Potassium 4.1 mmol/L (3.5-5.1) 05/26/23 20:26 Chloride 101 mmol/L (98-107) 05/26/23 19:13 Carbon Dioxide 23 mmol/L (21-32) 05/26/23 19:13 Anion Gap 10 (3-11) 05/26/23 19:13 BUN 49 mg/dl (6-23) H 05/26/23 19:13 Creatinine 1.34 mg/dl (0.6-1.4) 05/26/23 19:13 Est Cr Clr Drug Dosing 52.9 ml/min 05/26/23 19:13 Est GFR ( Amer) 59.2 ml/min 05/26/23 19:13 Est GFR (Non-Af Amer) 51.1 ml/min 05/26/23 19:13 BUN/Creatinine Ratio 36.6 (10-20) H 05/26/23 19:13 Glucose 221 mg/dl (70-99(Fasting)) H 05/26/23 19:13 Lactate 1.1 mmol/L (0.4-2.0) 05/26/23 19:51 Calcium 10.2 mg/dl (8.6-10.3) 05/26/23 19:13 Magnesium 2.4 mg/dl (1.7-2.4) 05/26/23 19:13 Total Bilirubin 1.7 mg/dl (0.2-1.0) H 05/26/23 19:13 AST 17 U/L (13-39) 05/26/23 20:26 ALT 22 U/L (7-52) 05/26/23 19:13 Alkaline Phosphatase 106 U/L (34-104) H 05/26/23 19:13 Troponin I High Sens 13.1 pg/ml (0-20) 05/26/23 19:13 Total Protein 8.0 gm/dl (6.0-8.3) 05/26/23 19:13 Albumin 4.2 gm/dl (3.4-5.0) 05/26/23 19:13 Globulin 3.8 gm/dl (2.5-4.0) 05/26/23 19:13 Albumin/Globulin Ratio 1.1 (0.9-2) 05/26/23 19:13 TSH 4.463 uIu/ml (0.300-4.500) 05/26/23 19:13 Urine Color Red 05/26/23 20:30 Urine Appearance Turbid (Clear) A 05/26/23 20:30 Urine pH 6.5 (4.5-7.5) 05/26/23 20:30 Ur Specific [place] 1.015 (1.000-1.030) 05/26/23 20:30 Urine Protein 2+ (Negative) H 05/26/23 20:30 Urine Glucose (UA) Negative (Negative) 05/26/23 20:30 Urine Ketones Negative (Negative) 05/26/23 20:30 Urine Blood 3+ (Negative) H 05/26/23 20:30 Urine Nitrite Negative (Negative) 05/26/23 20:30 Urine Bilirubin Negative (Negative) 05/26/23 20:30 Urine Urobilinogen Negative (Negative) 05/26/23 20:30 Ur Leukocyte Esterase 3+ (Negative) H 05/26/23 20:30 Urine WBC (Auto) >50 /hpf (0-5) H 05/26/23 20:30 Urine RBC (Auto) >20 /hpf (0-2) H 05/26/23 20:30 U Hyaline Cast (Auto) 0-2 /lpf (0-2) 05/26/23 20:30 U Epithel Cells (Auto) 0-2 /hpf (0-2) 05/26/23 20:30 Urine Bacteria (Auto) 4+ (None Seen) H 05/26/23 20:30 Adenovirus (PCR) Not Detected (NotDetected) 05/26/23 19:30 B. pertussis DNA (PCR) Not Detected (NotDetected) 05/26/23 19:30 B.parapertussis DNA PCR Not Detected (NotDetected) 05/26/23 19:30 C. pneumoniae DNA (PCR) Not Detected (NotDetected) 05/26/23 19:30 Coronavirus OC43 (PCR) Not Detected (NotDetected) 05/26/23 19:30 Coronavirus HKU1 (PCR) Not Detected (NotDetected) 05/26/23 19:30 Coronavirus 229E (PCR) Not Detected (NotDetected) 05/26/23 19:30 SARS-CoV-2 (PCR) Not Detected (NotDetected) 05/26/23 19:30 Coronavirus NL63 (PCR) Not Detected (NotDetected) 05/26/23 19:30 Human Metapneumovir PCR Not Detected (NotDetected) 05/26/23 19:30 Influenza Type A (PCR) Not Detected (NotDetected) 05/26/23 19:30 Influenza Type B (PCR) Not Detected (NotDetected) 05/26/23 19:30 M. pneumoniae (PCR) Not Detected (NotDetected) 05/26/23 19:30 Parainfluenza 1 (PCR) Not Detected (NotDetected) 05/26/23 19:30 Parainfluenza 2 (PCR) Not Detected (NotDetected) 05/26/23 19:30 Parainfluenza 3 (PCR) Not Detected (NotDetected) 05/26/23 19:30 Parainfluenza 4 (PCR) Not Detected (NotDetected) 05/26/23 19:30 RSV (PCR) Not Detected (NotDetected) 05/26/23 19:30 Entero/Rhino (PCR) Not Detected (NotDetected) 05/26/23 19:30 Blood Parasites ID Cancelled 05/26/23 19:13 Impressions Chest X-Ray 05/26/23 18:57 SINGLE VIEW CHEST CLINICAL HISTORY: Generalized weakness. Fever. FINDINGS: 2 AP, portable, upright chest radiographs compared to study dated 04/27/2023. There is a large hiatal hernia. The heart is mildly enlarged noting atherosclerotic calcification of the thoracic aorta. The pulmonary vasculature is noncongested. Chronic interstitial thickening is similar to previous. A calcified granuloma is again seen in the left lower lung. There is bibasilar scarring/atelectasis. No airspace consolidation or large pleural effusion is identified. No pneumothorax is seen. The skeletal structures are osteopenic. The bony thorax is grossly intact. Arthritic change is noted in the shoulders and spine. IMPRESSION: 1. Cardiomegaly with no active disease in the chest. 2. Large hiatal hernia. ACT 112: Negative or not required by law. Electronically signed by: Ortiz Whyte M.D. 05/26/2023 7:11 PM Abdomen/Pelvis CT 05/26/23 19:13 Exam(s): CT ABDOMEN + PELVIS Without Contrast EXAM: CT Abdomen and Pelvis Without Intravenous Contrast CLINICAL HISTORY: Reason for exam: fall, buttock wound. TECHNIQUE: Axial computed tomography images of the abdomen and pelvis without intravenous contrast. CTDI is 36.18 mGy and DLP is 3091.21 mGy-cm. Automated exposure control was utilized for the study. A dose lowering technique was utilized adhering to the principles of ALARA. COMPARISON: No relevant prior studies available. FINDINGS: Mediastinum: Large hiatal hernia. ABDOMEN: Liver: Unremarkable. Gallbladder and bile ducts: Cholelithiasis without evidence of acute cholecystitis. No biliary dilatation. Pancreas: Unremarkable. Spleen: Unremarkable. Adrenals: Unremarkable. Kidneys and ureters: Mild bilateral hydroureteronephrosis. Stomach and bowel: Constipation with a large amount of stool in the sigmoid colon and rectum. PELVIS: Appendix: No findings to suggest acute appendicitis. Bladder: Distended bladder. Reproductive: Unremarkable as visualized. ABDOMEN and PELVIS: Intraperitoneal space: Unremarkable. No free air. No significant fluid collection. Bones/joints: No acute fracture. Severe degenerative changes in the spine particularly at L2-3 and L3-4. Postsurgical changes in the lower lumbar spine. Soft tissues: Fat-containing umbilical hernia. Vasculature: Unremarkable. Lymph nodes: Unremarkable. IMPRESSION: 1. Constipation with a large amount of stool in the sigmoid colon and rectum. 2. Bladder outlet obstruction with distended bladder and mild bilateral hydronephrosis. 3. Large hiatal hernia. 4. Fat-containing umbilical hernia. Electronically signed by: Sanju Krishnan MD 05/26/23 20:[address] 05/26/23 19:13 Exam(s): CT C SPINE EXAM: CT Cervical Spine Without Intravenous Contrast CLINICAL HISTORY: Reason for exam: fall. TECHNIQUE: Axial computed tomography images of the cervical spine without intravenous contrast. CTDI is 36.18 mGy and DLP is 3091.21 mGy-cm. Automated exposure control was utilized for the study. A dose lowering technique was utilized adhering to the principles of ALARA. COMPARISON: [place] [address] 20 FINDINGS: Vertebrae: No acute fracture. Degenerative changes. Osteopenia. Soft tissues: Unremarkable. IMPRESSION: No acute fracture. Electronically signed by: Sanju Krishnan MD 05/26/23 20:[address] 05/26/23 19:13 Exam(s): CT HEAD Without Contrast EXAM: CT Head Without Intravenous Contrast CLINICAL HISTORY: Reason for exam: fall, fever. TECHNIQUE: Axial computed tomography images of the head/brain without intravenous contrast. CTDI is 36.18 mGy and DLP is 3091.21 mGy-cm. Automated exposure control was utilized for the study. A dose lowering technique was utilized adhering to the principles of ALARA. COMPARISON: No relevant prior studies available. FINDINGS: Brain: No intracranial hemorrhage, mass-effect, or cerebral edema. Atrophy and chronic microvascular ischemic changes. Ventricles: Unremarkable. Bones/joints: Unremarkable. No fracture. Soft tissues: Unremarkable. Sinuses: No acute sinusitis. Mastoid air cells: Unremarkable as visualized. IMPRESSION: 1. No acute intracranial abnormality. Electronically signed by: Sanju Krishnan MD 05/26/23 20:35 PM Code Status & VTE Plan Code Status Full code VTE Prophylaxis Plan VTE Prophylaxis will be ordered: Yes PG Care Time/CCT Total # of Minutes Spent Total Time Spent with Patient: Total time spent is greater than 50% in coordination of care (as documented) at patient's floor/unit and/or counseling patient: Coding Level of Care Code 31007 INT INP/OBS CARE 3/75MIN Diagnoses Sepsis due to urinary tract infection A41.9; N39.0 Metabolic encephalopathy G93.41 Weakness R53.1 Acute UTI N39.0 Gross hematuria R31.0 Wound of buttock S31.829A Encounter type: initial encounter Laterality: left Multiple sclerosis G35 Neurogenic bladder N31.9 Idiopathic insomnia F51.01 Hypertension I10 Peripheral neuropathy G62.9 Confusion R41.0 Decubitus ulcer of sacral area L89.159 (6) Wound of buttock Encounter type: initial encounter Laterality: left Qualified Code(s): S31.829A - Unspecified open wound of left buttock, initial encounter
[2023-05-26] MEDS: ACETAMINOPHEN 325 MG TAB PO STA (22:07)
[2023-05-26] MEDS ORDERED: oxyCODONE HCL IR 5 MG TAB (IMMEDIATE RELEASE) PO PRN (22:19)
[2023-05-27] MEDS ORDERED: ACETAMINOPHEN 325 MG TAB PO PRN (00:53)
[2023-05-27] MEDS ORDERED: MELATONIN 3 MG TAB PO PRN (00:53)
[2023-05-27] MEDS ORDERED: ONDANSETRON INJ 2 MG/ML 2 ML VIAL IV PRN (00:53)
[2023-05-27] MEDS ORDERED: ZOLPIDEM TARTRATE 5 MG TAB PO PRN (00:53)
[2023-05-27] MEDS ORDERED: VANCOMYCIN CONSULT ACTIVE PRN (00:53)
[2023-05-27] MEDS: DAPTOmycin 475 MG in SYRINGE 0 ML IV SCH (02:31)
[2023-05-27] MEDS: PIPERACILLIN/TAZOBACTAM 4.5 GM in DEXTROSE 5% MINI-B 100 ML IV SCH (02:31)
[2023-05-27 05:38] LABS: Basophils # (auto) 0.03 K/uL (0.00-0.20); Basophils % (auto) 0.2 %; Eosinophils # (auto) 0.01 K/uL (0.00-0.50); Eosinophils % (auto) 0.1 %; Hematocrit (blood only) 36.7 % (42.0-52.0); Immature Granulocytes # (auto) 0.07 K/uL (0.01-0.20); Immature Granulocytes % (auto) 0.5 %; Lymphocytes # (auto) 1.02 K/uL (1.20-3.40); Mean Corpuscular Hemoglobin 31.3 pg (25.0-34.0); Mean Corpuscular Hgb Conc 32.7 g/dL (32.0-36.0); Mean Corpuscular Volume 95.6 fL (80.0-100.0); Mean Platelet Volume 9.8 fL (9.4-12.4); Monocytes # (auto) 0.78 K/uL (0.11-0.59); Monocytes % (auto) 5.4 %; Neutrophils # (auto) 12.65 K/uL (1.40-6.50); Neutrophils % (auto) 86.8 %; Platelet Count 204 K/uL (130-400); RDW Coefficient of Variation 14.2 % (11.5-14.5); RDW Standard Deviation 50.1 fL (36.4-46.3); Red Blood Count 3.84 M/uL (4.70-6.10); White Blood Count 14.56 K/ul (4.8-10.8)
[2023-05-27 06:03] LABS: Albumin Level 2.9 gm/dl (3.4-5.0); Bilirubin,Total 1.9 mg/dl (0.2-1.0); Calcium 8.4 mg/dl (8.6-10.3); Magnesium 2.1 mg/dl (1.7-2.4); Potassium 3.5 mmol/L (3.5-5.1)
[2023-05-27 06:17] LABS: Albumin Globulin Ratio 1.1 (0.9-2); Creatinine Clr Calc Pharmacy 63.8 ml/min; Est GFR (African American) 74.4 ml/min; Est GFR (Non-African American) 64.2 ml/min; Globulin 2.7 gm/dl (2.5-4.0); Total Protein 5.6 gm/dl (6.0-8.3)
[2023-05-27] MEDS ORDERED: VANCOMYCIN HCL 1,500 MG in SODIUM CHLORIDE 0.9% 500 ML IV SCH (08:00)
[2023-05-27] MEDS ORDERED: rOPINIRole HCL 2 MG TABLET PO SCH (09:00)
[2023-05-27] MEDS ORDERED: POLYETHYLENE (MIRALAX) 17 GM PACK PO SCH (09:00)
[2023-05-27] MEDS ORDERED: bisacodyL 5 MG TABEC PO SCH (09:00)
[2023-05-27] MEDS ORDERED: CHOLECALCIFEROL 125 MCG (5,000 UNITS) TAB PO SCH (09:00)
[2023-05-27] MEDS: DOCUSATE SODIUM 100 MG CAP PO SCH (09:17)
[2023-05-27] MEDS: POLYETHYLENE (MIRALAX) 17 GM PACK PO SCH (09:17)
--- NOTE | 2023-05-27 10:27 | Urology Consultation ---
Date of Consultation May 27, 2023 Assessment & Plan (1) Neurogenic bladder: (2) Multiple sclerosis: (3) Acute UTI: Plan 77-year-old gentleman with advanced multiple sclerosis, limited mobility and neurogenic bladder Malposition Posey catheter at his nursing facility led to retention of urine and subsequent development of fevers and presumed UTI He is chronically colonized but obstruction of the catheter will certainly increase his risk of having a systemic infection as has developed currently I support the idea of continuing broad-spectrum antibiotics A well-positioned Posey catheter is now present which should resolve his underlying obstructive issues Hematuria from the Posey catheter trauma has resolved No involvement indicated at this time Call if further issues arise History of Present Illness Attending Physician: Saqib Graves MD History of Present Illness 77-year-old gentleman well-known to our service with longstanding neurogenic bladder managed with [facility] resident Unfortunately he presented overnight with fevers and malposition Posey catheter and some hematuria He had a relatively full bladder on initial scan but this was decompressed after placement of a catheter into the bladder He has had good urine output since that time He has been afebrile thus far this morning He is extremely somnolent on visit today, but appears comfortable and breathing appropriately Posey catheter is in place with clear urine in the bag Allergies Allergy/AdvReac Type Severity Reaction Status Date / Time No Known Allergies Allergy Verified 05/26/23 22:10 Home Medications Medication Instructions Recorded Confirmed Type cholecalciferol (vitamin D3) 125 5,000 units PO DAILY 09/18/18 05/26/23 History mcg (5,000 unit) tablet ascorbic acid (vitamin C) 500 mg 1,000 mg PO DAILY 11/21/18 05/26/23 History tablet coenzyme Q10 100 mg capsule 100 mg PO DAILY 11/21/18 05/26/23 History omega-3 acid ethyl esters 1 gram 1 cap PO BID 11/21/18 05/26/23 History capsule polyethylene glycol 3350 17 17 g PO DAILY 03/10/19 05/26/23 History gram/dose oral powder multivitamin with iron-mineral 1 tab PO DAILY 11/06/19 05/26/23 History prevagen 1 tab PO DAILY 12/22/19 05/26/23 History magnesium oxide 400 mg (241.3 mg 400 mg PO DAILY 05/02/22 05/26/23 History magnesium) tablet ropinirole 2 mg tablet 2 mg PO TID #270 tabs 11/07/22 05/26/23 Rx losartan 50 mg tablet 50 mg PO BID #90 tabs 04/02/23 05/26/23 Rx hydrocodone 5 mg-acetaminophen 325 1 tab PO Q6H PRN pain #30 tabs 04/25/23 04/26/23 Rx mg tablet acetaminophen 325 mg tablet 650 mg (2 x 325 mg) PO Q6H PRN 04/30/23 05/26/23 Rx pain #30 tabs nortriptyline 10 mg capsule 20 mg (2 x 10 mg) PO BID #120 caps 04/30/23 05/26/23 Rx oxycodone 5 mg tablet 5 mg PO Q6 PRN moderate-severe 04/30/23 05/26/23 Rx pain #12 tabs zolpidem 10 mg tablet 10 mg PO HS #3 tabs 04/30/23 05/26/23 Rx bisacodyl 5 mg tablet,delayed 5 mg PO Q OTHER DAY 05/26/23 05/26/23 History release calcium carbonate 500 mg PO DIRECTED 05/26/23 05/26/23 History melatonin 5 mg tablet 5 mg PO HS PRN Insomnia 05/26/23 05/26/23 History miconazole nitrate 2 % topical 1 applic topical DAILY PRN .rash 05/26/23 05/26/23 History cream nutritional supplements 1 ea PO TID 05/26/23 05/26/23 History Patient History Medical History Prediabetes Hypercalcemia Insomnia Fall Muscle stiffness Lyme disease Hypertension Aneurysm of vertebral artery History of urinary self-catheterization Idiopathic insomnia Impotence, organic Glaucoma Hearing difficulty Multiple sclerosis (~1991) Vision problem Depression Adrenal adenoma Neurogenic bladder Peripheral neuropathy Surgical History Status post insertion of intrathecal baclofen pump 2008 and removal 2009 was about a year later. pump was making him too weak. then had csf leaking and that had to be repaired History of repair of rotator cuff History of back surgery Family History Mother Myocardial infarction Cardiac disorder Sister Multiple sclerosis COPD (chronic obstructive pulmonary disease) Father Leukemia Denies family history of Ovarian cancer Prostate cancer Breast cancer Colorectal cancer Social History Smoking Status: Former smoker Tobacco Type: Cigarettes Age Started Using Tobacco: 17; Age Quit Using Tobacco: 31; packs per day: 1; Second Hand Exposure: No; Do You Dip or Chew Tobacco: No; Hx Alcohol Use: No Hx Substance Use: No Preferred Language: [place]ian Communication Ability: Effective Visual Impairment: Partially Limited Hearing Ability: Use of Hearing Aid Special Events Manager Required: No Beliefs That Will Affect Care: Faith Faith Beliefs: Muslim marital status: Current Living Situation: Alf current occupational status: retired How many Children do You have: 1 Feels Safe at Home: Yes Childhood Exposure to Second-Hand Smoke: No Diet: regular Diet Comment: regular caffeine: Yes (Coffee x 1 cup per day.) during the past year weight has: remained stable Dental Care, Regularly: Yes Physical Activity Frequency: Does not Exercise Seatbelt Use: always Sunscreen Use: No Assistive Devices: Hearing Aid - Bilateral and Wheelchair Review of Systems Review of Systems: The patient denies chest pain, palpitations, shortness of breath, dyspnea on exertion, cough, lower extremity swelling, sore throat, fevers, chills, sweats, nausea, vomiting, diarrhea , constipation, abdominal pain, pelvic pain, blood in stool, lightheadedness, dizziness, headache, memory loss, loss of consciousness, focal or generalized weakness, numbness or tingling in arms, neck pain, or night sweats. The review of systems is otherwise negative other than for that already noted above, and at least 10 systems have been reviewed. Physical Exam Physical Exam: Sleeping comfortably Not easily arousable Borderline tachycardic Abdomen soft Posey in place draining clear urine Results & Data Vital Signs (Past 12 Hours) Vital Signs Temp Pulse Pulse Resp BP Pulse Ox Pulse Ox 05/27/23 07:46 37.0 C 101 H 20 168/80 H 92 05/27/23 07:20 86 05/27/23 02:45 36.8 C 96 H 18 110/73 99 05/27/23 01:15 05/27/23 00:53 97 05/27/23 00:12 107 H 05/27/23 00:10 38.8 C H 105 H 22 120/74 97 05/26/23 23:50 39.0 C H 105 H 22 120/74 97 05/26/23 22:40 137 H 20 05/26/23 22:30 133 H 31 H O2 Del Method O2 Del Method O2 Flow Rate O2 Flow Rate 05/27/23 07:46 Room Air 05/27/23 07:20 05/27/23 02:45 Nasal Cannula 1 05/27/23 01:15 Nasal Cannula 1 05/27/23 00:53 Nasal Cannula 1 05/27/23 00:12 05/27/23 00:10 Nasal Cannula 1 05/26/23 23:50 Nasal Cannula 1 05/26/23 22:40 Nasal Cannula 2 05/26/23 22:30 Nasal Cannula 2 PG Care Time/CCT Total # of Minutes Spent Total Time Spent with Patient: Total time spent is greater than 50% in coordination of care (as documented) at patient's floor/unit and/or counseling patient: Coding Level of Care Code 28904 IN/OBS CONSULT LVL 4,60M Diagnoses Neurogenic bladder N31.9 Multiple sclerosis G35 Acute UTI N39.0
--- NOTE | 2023-05-27 14:49 | Hospitalist Progress Note ---
Date of Service May 27, 2023 Assessment & Plan (1) Sepsis due to urinary tract infection: Plan: Present on admission. Urine and blood culture results pending. He currently is on Zosyn, day 2. He is also on long-term intravenous daptomycin for the sacral decubitus. (2) Metabolic encephalopathy: Plan: Appears to have resolved. Supportive care (3) Weakness: Plan: Chronic due to MS. Exacerbated by acute infection. OT and PT ordered. (4) Acute UTI: Plan: Urine and blood cultures pending. Continue Zosyn for now, day 2 (5) Gross hematuria: Plan: Due to UTI. Urology consultation pending (6) Wound of buttock: Plan: Chronic. Wound care consultation. Continue intravenous daptomycin. (7) Multiple sclerosis: Plan: No recent changes. Continue current medical management (8) Hypertension: Plan: Stable. Continue current medical management Plan Anticipate eventual return back to [facility]. Admission and Anticipated Discharge Date Admission Date: May 26, 2023 Subjective Alert and oriented. Hard of hearing. is at the bedside. Metabolic encephalopathy seems to have cleared. Urine culture and blood culture results noted. He is now on intravenous Zosyn. Intravenous daptomycin continues long- term for the sacral decubitus. MiraLAX and Colace are scheduled now for the constipation. Bladder outlet obstruction with bilateral hydronephrosis noted on CT scan. Urology consultation is pending. Review of Systems 2 Review of Systems: Constitutional-no fever or chills ENT-no blurred vision, no double vision, no epistaxis, no sore throat Respiratory-no cough, no wheezing, no shortness of breath Cardiac-no palpitations, no chest pain, no syncope GI-no nausea, vomiting, diarrhea, melena, hematochezia - no hematuria Musculoskeletal-no joint pain, no muscle tenderness Skin-no bruising, no rashes, no pruritus Neuro-no isolated weakness, no paresthesia Psych-no depression, no anxiety Physical Exam 2 Physical Exam: General-alert and oriented x3, no fever, no chills HEENT-head atraumatic and normocephalic, pupils equal and reactive to light, extraocular muscles intact Neck-no lymphadenopathy or thyromegaly, trachea midline Chest-clear to auscultation. No rales, wheezing or rhonchi Cardiac-regular rate and rhythm, normal S1 and S2 Abdomen-normal bowel sounds, no hepatosplenomegaly Extremities-no cyanosis, clubbing, or edema Skinsacral decubitus covered with wound VAC Neuro-cranial nerves II through XII intact, generalized weakness Psych-depressed affect Results & Data Results & Data Vital Signs (Past 12 Hours) Vital Signs Temp Pulse Pulse Resp BP Pulse Ox O2 Del Method 05/27/23 11:29 37.5 C 93 H 19 100/58 L 95 Room Air 05/27/23 07:46 37.0 C 101 H 20 168/80 H 92 Room Air 05/27/23 07:20 86 Laboratory Results 05/27/23 04:42 05/27/23 04:42 PG Care Time/CCT Total # of Minutes Spent Total Time Spent with Patient: Total time spent is greater than 50% in coordination of care (as documented) at patient's floor/unit and/or counseling patient: Coding Level of Care Code 12349 SUB INP/OBS CARE 3/50MIN Diagnoses Sepsis due to urinary tract infection A41.9; N39.0 Metabolic encephalopathy G93.41 Weakness R53.1 Acute UTI N39.0 Gross hematuria R31.0 Wound of buttock S31.829A Encounter type: initial encounter Laterality: left Multiple sclerosis G35 Hypertension I10 (6) Wound of buttock Encounter type: initial encounter Laterality: left Qualified Code(s): S 31.829A - Unspecified open wound of left buttock, initial encounter
[2023-05-27] MEDS: ZOLPIDEM TARTRATE 10 MG TAB PO SCH (21:06)
--- NOTE | 2023-05-27 23:02 | Electrocardiogram Report ---
Test Reason : Blood Pressure : / mmHG Vent. Rate : 112 BPM Atrial Rate : 112 BPM P-R Int : 192 ms QRS Dur : 138 ms QT Int : 412 ms P-R-T Axes : 033 102 -02 degrees QTc Int : 562 ms Sinus tachycardia Right bundle branch block Abnormal ECG When compared with ECG of 27-APR-2023 00:11, OK interval has decreased ST no longer depressed in Lateral leads Confirmed by Jose Alejandro Myers ([id number]) on 05/27/2023 11:01:56 PM Referred By: Ngyuen Guzman Confirmed By:Jose Alejandro Myers
[2023-05-28 05:24] LABS: Basophils # (auto) 0.03 K/uL (0.00-0.20); Basophils % (auto) 0.4 %; Eosinophils # (auto) 0.18 K/uL (0.00-0.50); Eosinophils % (auto) 2.3 %; Hematocrit (blood only) 36.1 % (42.0-52.0); Hemoglobin 11.6 g/dl (14.0-18.0); Immature Granulocytes # (auto) 0.05 K/uL (0.01-0.20); Immature Granulocytes % (auto) 0.6 %; Lymphocytes # (auto) 1.88 K/uL (1.20-3.40); Mean Corpuscular Hemoglobin 31.5 pg (25.0-34.0); Mean Corpuscular Hgb Conc 32.1 g/dL (32.0-36.0); Mean Corpuscular Volume 98.1 fL (80.0-100.0); Mean Platelet Volume 10.2 fL (9.4-12.4); Monocytes # (auto) 0.96 K/uL (0.11-0.59); Monocytes % (auto) 12.3 %; Neutrophils # (auto) 4.72 K/uL (1.40-6.50); Neutrophils % (auto) 60.4 %; Platelet Count 168 K/uL (130-400); RDW Coefficient of Variation 14.3 % (11.5-14.5); RDW Standard Deviation 51.9 fL (36.4-46.3); Red Blood Count 3.68 M/uL (4.70-6.10); White Blood Count 7.82 K/ul (4.8-10.8)
[2023-05-28 05:33] LABS: Albumin Level 3.1 gm/dl (3.4-5.0); Calcium 8.4 mg/dl (8.6-10.3); Potassium 3.3 mmol/L (3.5-5.1)
[2023-05-28 05:42] LABS: Albumin Globulin Ratio 1.2 (0.9-2); BUN Creatinine Ratio 27.8 (10-20); Creatinine Clr Calc Pharmacy 65.5 ml/min; Est GFR (African American) 76.9 ml/min; Est GFR (Non-African American) 66.3 ml/min; Globulin 2.5 gm/dl (2.5-4.0); Total Protein 5.6 gm/dl (6.0-8.3)
[2023-05-28] MEDS: cefTRIAXone SODIUM 2,000 MG in DEXTROSE 5 % MINI-B 50 ML IV SCH (11:35)
[2023-05-28] MEDS: POTASSIUM CHLORIDE CRTAB 20 MEQ TABCR PO STA (12:00)
--- NOTE | 2023-05-28 12:59 | Hospitalist Progress Note ---
Date of Service May 28, 2023 Assessment & Plan (1) Sepsis due to urinary tract infection: Plan: Present on admission, now resolved. Posey bulb was in prostate and not draining urine properly-Posey exchanged 05/25 Appreciate Urology consult Urine culture w/ E. coli intermed to Unasyn and Res to Amp BCxs-NGTD Afebrile, leukocytosis resolved, BPs normal Change Zosyn to Ceftriaxone for now and plan to convert to po Augmentin on discharge to finish out 10 day course Follow BCXs Follow CBC, BMP in AM (2) Metabolic encephalopathy: Plan: Resolved with treatment of sepsis,UTI (3) Weakness: Plan: Chronic due to MS. Exacerbated by acute infection. OT and PT ordere and he will return to [facility] for rehab (4) Gross hematuria: Plan: Due to UTI, Posey bulb trauma in prostate-now resolved Urology consultation appreciated Hgb stable (5) Wound of buttock: Plan: Chronic but overall much improved from previous Wound vac removed on admission but will see if park landscape architect can replace today Previously grew out MRSA and Strep intermedius but was no longer on intravenous daptomycin before admission--> unclear why placed back on here-can discontinue this Continue to offload pressure (6) Multiple sclerosis: Plan: not on medication resume nortriptyline for neuropathic pain, melatonin for sleep continue bowel regimen for constipation-now moving bowels (7) Hypertension: Plan: BPs controlled resume home losartan held for sepsis initially Hypokalemia-replace KCl po 40 meq, follow BMP Plan Dispo-medically stable for discharge but cannot return to [facility] until tomorrow as per case filler. Downgrade off tele DVT proph-add Lovenox now that hematuria resolved Admission and Anticipated Discharge Date Admission Date: May 26, 2023 Subjective Pt feels well, no pain, no concerns. Is eating and drinking, moving bowels regularly now. Hematuria cleared up Tele with NSR, PVCs, IVCD, rates 80-90s Physical Exam Constitutional: WD/WN, vitals as above Respiratory: normal respiratory effort, lungs clear to auscultation Cardiovascular: RRR, no murmur, no edema Gastrointestinal (Abdomen): normal bowel sounds, soft, nontender, no hepatosplenomegaly Psychiatric: A+Ox3, euthymic affect Genitourinary: + penis abnormality (Posey in place with clear yellow urine) Results & Data Results & Data Vital Signs (Past 12 Hours) Vital Signs Temp Pulse Pulse Resp BP Pulse Ox O2 Del Method 05/28/23 10:46 36.6 C 85 17 119/69 96 Room Air 05/28/23 08:00 91 H 05/28/23 08:00 Room Air 05/28/23 07:04 36.7 C 88 20 105/64 97 Room Air 05/28/23 03:09 36.4 C L 99 H 18 137/71 93 Room Air Laboratory Results CBC, BMP, blood cxs reviewed PG Care Time/CCT Total # of Minutes Spent Total Time Spent with Patient: Total time spent is greater than 50% in coordination of care (as documented) at patient's floor/unit and/or counseling patient: Coding Level of Care Code 69600 SUB INP/OBS CARE 3/50MIN Diagnoses Sepsis due to urinary tract infection A41.9; N39.0 Metabolic encephalopathy G93.41 Weakness R53.1 Gross hematuria R31.0 Wound of buttock S31.829A Encounter type: initial encounter Laterality: left Multiple sclerosis G35 Hypertension I10 (5) Wound of buttock Encounter type: initial encounter Laterality: left Qualified Code(s): S31.829A - Unspecified open wound of left buttock, initial encounter
[2023-05-28] MEDS: MAGNESIUM OXIDE 400 MG TAB PO SCH (14:18)
[2023-05-28] MEDS: ENOXAPARIN INJ 40 MG/0.4 ML SYR SQ SCH (14:18)
[2023-05-28] MEDS: LOSARTAN POTASSIUM 50 MG TAB PO SCH (19:57)
[2023-05-28] MEDS: NORTRIPTYLINE HCL 10 MG CAP PO SCH (19:57)
[2023-05-29] MEDS: MELATONIN 3 MG TAB PO PRN (01:03)
[2023-05-29 06:52] LABS: Basophils # (auto) 0.02 K/uL (0.00-0.20); Basophils % (auto) 0.3 %; Eosinophils # (auto) 0.33 K/uL (0.00-0.50); Eosinophils % (auto) 4.7 %; Immature Granulocytes # (auto) 0.02 K/uL (0.01-0.20); Immature Granulocytes % (auto) 0.3 %; Lymphocytes # (auto) 1.99 K/uL (1.20-3.40); Lymphocytes % (auto) 28.5 %; Mean Corpuscular Hemoglobin 31.7 pg (25.0-34.0); Mean Corpuscular Hgb Conc 33.3 g/dL (32.0-36.0); Mean Corpuscular Volume 95.1 fL (80.0-100.0); Mean Platelet Volume 9.7 fL (9.4-12.4); Monocytes % (auto) 12.9 %; Neutrophils # (auto) 3.72 K/uL (1.40-6.50); Neutrophils % (auto) 53.3 %; Platelet Count 174 K/uL (130-400); RDW Coefficient of Variation 13.7 % (11.5-14.5); RDW Standard Deviation 48.1 fL (36.4-46.3); Red Blood Count 3.47 M/uL (4.70-6.10); White Blood Count 6.98 K/ul (4.8-10.8)
[2023-05-29 07:15] LABS: Albumin Globulin Ratio 1.1 (0.9-2); Albumin Level 2.9 gm/dl (3.4-5.0); BUN Creatinine Ratio 27.2 (10-20); Bilirubin,Total 0.7 mg/dl (0.2-1.0); Calcium 8.7 mg/dl (8.6-10.3); Creatinine Clr Calc Pharmacy 68.7 ml/min; Est GFR (African American) 81.4 ml/min; Est GFR (Non-African American) 70.2 ml/min; Globulin 2.7 gm/dl (2.5-4.0); Potassium 3.8 mmol/L (3.5-5.1); Total Protein 5.6 gm/dl (6.0-8.3)
[2023-05-29] MEDS: ASCORBIC ACID 500 MG TAB PO SCH (08:40)
[2023-05-29] MEDS: CEROVITE ADV FORMULA TAB PO SCH (08:41)
--- NOTE | 2023-05-29 11:34 | Discharge Summary ---
Discharge Summary Date of Service May 29, 2023 Notes For Next Care Provider Follow up Urology within 1 month for eval to remove Posey and return to self- cath Medication Changes From Visit Added Augmentin 875/125mg po bid x 4.5 more days Added Miralax and docusate bid Discontinued oxycodone Admission HPI Per Admitting Provider The patient is a 77-year-old male with past medical history including multiple sclerosis, depression, left buttock wound requiring wound VAC, idiopathic insomnia, hypertension, urinary retention, hearing difficulty, adrenal adenoma, peripheral neuropathy, RLS, and hypertension. He had been admitted to [facility] from 04/25-04/30/2023, and was then was discharged to [facility]. He has had improvement in his left buttock wound, and continues to be utilizing a wound VAC. He was transferred to [facility] emergency department, due to worsening confusion throughout the day today, and decreased urine output despite placement of a Posey catheter. His reports that he appeared to have been intermittently confused over the past few days. In the emergency department, patient's Posey catheter was found to have bulb dilated within the prostate, and when this was deflated, we positioned and reinserted, he was initially found to have clear urine, and then had gross hematuria without clots. In the emergency department patient initially was conversant, but he became more confused, and appeared to be developing encephalopathy. Principal Dx & Hospital Course #1 = Principal Diagnosis (1) Sepsis due to urinary tract infection: Present on admission, now resolved. Posey bulb was in prostate possibly dislodged from a recent fall and not draining urine properly-Posey exchanged 05/25 and drained 1L urine Appreciate Urology consult Urine culture w/ E. coli intermed to Unasyn and Res to Amp BCxs-remain NGTD Afebrile, leukocytosis resolved, BPs normal Changed Zosyn to Ceftriaxone and received 3 days of IV abx--convert to po Augmentin on discharge to finish out 7 day course Keep Posey in place while wound vac on as is difficult for him to self cath without being able to sit upright f/u w/ Urology in 1 month (2) Metabolic encephalopathy: Resolved with treatment of sepsis,UTI (3) Weakness: Chronic due to MS. Exacerbated by acute infection. OT and PT ordered and he will return to [facility] for rehab (4) Gross hematuria: Due to UTI, Posey bulb trauma in prostate-now resolved Urology consultation appreciated Hgb remains stable (5) Wound of buttock: Chronic but overall much improved from previous Wound vac removed on admission and will be replaced at [facility] Previously grew out MRSA and Strep intermedius but was no longer on intravenous daptomycin before admission-->no evidence of infection on exam-no need for further abx Continue to offload pressure (6) Multiple sclerosis: not on medication resume nortriptyline for neuropathic pain, melatonin for sleep, and Requip for RLS-not sure why this was held here-restarted prior to discharge continue bowel regimen for constipation noted on CT-now moving bowels. COntinue Miralax and docusate bid on discharge (7) Hypertension: BPs controlled continue home losartan held for sepsis initially Hypokalemia-replaced and resolved Plan Dispo-medically stable for discharge to [facility] DVT proph-Lovenox Discussed care with on phone on 05/28 Discharge Exam Constitutional WD/WN, vitals as above Respiratory normal respiratory effort, lungs clear to auscultation Cardiovascular RRR, no murmur, no edema Gastrointestinal (Abdomen) normal bowel sounds, soft, nontender, no hepatosplenomegaly Psychiatric A+Ox3, euthymic affect Genitourinary + penis abnormality (Posey in place with clear yellow urine) Updated Medication List Medication Instructions Recorded Confirmed Type cholecalciferol (vitamin D3) 125 5,000 units PO DAILY 09/18/18 05/26/23 History mcg (5,000 unit) tablet ascorbic acid (vitamin C) 500 mg 1,000 mg PO DAILY 11/21/18 05/26/23 History tablet coenzyme Q10 100 mg capsule 100 mg PO DAILY 11/21/18 05/26/23 History omega-3 acid ethyl esters 1 gram 1 cap PO BID 11/21/18 05/26/23 History capsule polyethylene glycol 3350 17 17 g PO DAILY 03/10/19 05/26/23 History gram/dose oral powder multivitamin with iron-mineral 1 tab PO DAILY 11/06/19 05/26/23 History prevagen 1 tab PO DAILY 12/22/19 05/26/23 History magnesium oxide 400 mg (241.3 mg 400 mg PO DAILY 05/02/22 05/26/23 History magnesium) tablet ropinirole 2 mg tablet 2 mg PO TID #270 tabs 11/07/22 05/26/23 Rx losartan 50 mg tablet 50 mg PO BID #90 tabs 04/02/23 05/26/23 Rx hydrocodone 5 mg-acetaminophen 325 1 tab PO Q6H PRN pain #30 tabs 04/25/23 04/26/23 Rx mg tablet acetaminophen 325 mg tablet 650 mg (2 x 325 mg) PO Q6H PRN 04/30/23 05/26/23 Rx pain #30 tabs nortriptyline 10 mg capsule 20 mg (2 x 10 mg) PO BID #120 caps 04/30/23 05/26/23 Rx oxycodone 5 mg tablet 5 mg PO Q6 PRN moderate-severe 04/30/23 05/26/23 Rx pain #12 tabs bisacodyl 5 mg tablet,delayed 5 mg PO Q OTHER DAY 05/26/23 05/26/23 History release calcium carbonate 500 mg PO DIRECTED 05/26/23 05/26/23 History melatonin 5 mg tablet 5 mg PO HS PRN Insomnia 05/26/23 05/26/23 History miconazole nitrate 2 % topical 1 applic topical DAILY PRN .rash 05/26/23 05/26/23 History cream nutritional supplements 1 ea PO TID 05/26/23 05/26/23 History amoxicillin 875 mg-potassium 1 tab PO BID #9 tabs 05/29/23 Rx clavulanate 125 mg tablet docusate sodium 100 mg capsule 100 mg PO BID #60 caps 05/29/23 Rx polyethylene glycol 3350 17 gram 17 g PO BID #60 ea 05/29/23 Rx oral powder packet (Miralax) zolpidem 10 mg tablet 10 mg PO HS #3 tabs 05/29/23 Rx Hospital Stay Data Consultations 05/26/23 21:07 ED Decision to Admit Stat 05/27/23 05:53 Consult Urology Routine Diagnostic Imagining Performed 05/26/23 19:13 CT abd pelvis wo con Stat CT cervical spine wo con Stat CT head/brain wo con Stat Pending Results Patient Have Any Pending Studies at Discharge: Yes (Blood cultures-no growth to date) Discharge Instructions Given to Patient (Per Discharging Provider) Please finish out 4 more days of the oral antibiotic called Augmentin, twice daily. You will need to follow-up with urology within 1 month for further follow-up on whether to keep the Posey catheter in or return to self- catheterization. This is also dependent on how things are going with your wound vacuum/sacral wound. Please continue wound care as you were before for your sacral decubitus wound. Total Time Total Time Spent Total Time Spent (In Minutes): 35 min Coding Level of Care Code 56433 INP/OBS DISCH >30 MIN Diagnoses Sepsis due to urinary tract infection A41.9; N39.0 Metabolic encephalopathy G93.41 Weakness R53.1 Gross hematuria R31.0 Wound of buttock S31.829A Encounter type: initial encounter Laterality: left Multiple sclerosis G35 Hypertension I10
[2023-05-29] MEDS: rOPINIRole HCL 2 MG TABLET PO SCH (12:44)
== END 2023-05-29 16:30 | DRG 698 ==
LOC: ED 18:40 → 4W 21:58 → SUATTDRO 21:58 → 4W 23:59 → 3E 05-28 19:26